=== PATIENT | female | born 1950 ===

== ENCOUNTER 2022-10-07 10:24 | Outpatient (AMB) | payer MEDICARE, SELFPAY ==
--- NOTE | 2022-10-07 11:52 | MHC.OFFWIV ---
Intake Vital Signs 10/07/22 11:53 Height 5 ft 1 in Weight 117 lb BMI 22.1 BP 130/100 H Blood Pressure Location Rt brachial Position Sitting Pulse 66 Pulse Source Pulse Oximeter Temp 97.8 F Temp Source Temporal Artery Scan Pulse Oximetry (%) 98 Oxygen Delivery Method Room Air Intake Visit Reasons: EP, Sinus Congestion([phone]) Intake Note: Patient here for sinus congestion that has been present for about 1 week. she has been experiencing Cough, mucus, face congestion. Patient Tobacco Use Status: Former Tobacco user Allergies barium sulfate Allergy (Unknown, Verified 10/07/22 12:54) delayed rash pain meds Adverse Reaction (Unknown, Uncoded 10/07/22 12:54) N/V Medication List - Last Reconciled 10/07/22 by Wilberto Luther MD No Known Home Meds Do you need a note to return to daycare/school/sports/work: No HPI EP, Sinus Congestion([phone]) HPI Details Patient presents for a sick visit. Reporting symptoms of sinus congestion, sore throat and difficulty swallowing. Low-grade fever. No family member is sick. No recent travel. Patient reports symptoms of malaise and fatigue. Patient also gives history of eczema. She has an outbreak on the scalp and would like a steroid ointment. Physical Exam Vital Signs: Last Vital Signs Temp 97.8 F 10/07/22 11:53 Pulse 66 10/07/22 11:53 BP 130/100 H 10/07/22 11:53 Pulse Ox 98 10/07/22 11:53 Oxygen Delivery Method Room Air 10/07/22 11:53 BMI result Body Mass Index 22.1 Const General: cooperative and healthy appearing Nutritional Appearance: well nourished Orientation/consciousness: patient oriented x3 Limitations: no limitations HEENT Head: Yes normal to inspection Eyes General: appearance normal, both eyes and all related structures Neck Neck: Yes normal visual inspection Chest Chest palpation & inspection: normal palpation of entire chest wall Resp Effort & Inspection: normal respiratory effort Skin Other: Erythematous rash with flaking skin in the occipital area. Neuro General: patient oriented x3 Assessment & Plan Assessment & Plan (1) Upper respiratory tract infection: Code(s): J06.9 - Acute upper respiratory infection, unspecified Plan: Antibiotics ordered. Increase fluid intake. Tylenol for aches and pains. If symptoms worsen, follow-up here for a recheck. (2) Eczema: Code(s): L30.9 - Dermatitis, unspecified Plan: Steroid cream has been ordered. Coding Level of Care Code Est Pt Level 4 (32618) Diagnoses Upper respiratory tract infection J06.9 Eczema L30.9
[2022-10-07 11:53] VITALS: BP 130/100; PULSE 66; TEMP 36.6; O2SAT 98; BMI 22.1
== END 2022-10-07 13:04 | disposition home or self-care (01) ==
PROVIDERS: PCP Internal Medicine; Visit Provider Internal Medicine
DX: J06.9 Acute upper respiratory infection, unspecified (principal); L30.9 Dermatitis, unspecified
CPT/HCPCS: 99214

== ENCOUNTER 2023-02-12 15:18 | Emergency (ER) | payer MEDICARE, SELFPAY ==
--- NOTE | ~2023-02-12 | XR_ITS ---
EXAMINATION: XR CHEST CLINICAL INFORMATION: SOB. COMPARISON: None available. TECHNIQUE: 2 views of the chest were obtained. FINDINGS: No significant abnormality is noted involving the heart, lungs, mediastinum, bony thorax or soft tissues. XR/XR chest 2V IMPRESSION: Unremarkable chest examination.
[2023-02-12 15:30] VITALS: BP 181/109; PULSE 84; O2SAT 98
--- NOTE | 2023-02-12 15:34 | ECG_ITS ---
Test Reason : SOB Blood Pressure : / mmHG Vent. Rate : 078 BPM Atrial Rate : 078 BPM P-R Int : 142 ms QRS Dur : 066 ms QT Int : 402 ms P-R-T Axes : 078 064 060 degrees QTc Int : 458 ms Normal sinus rhythm with sinus arrhythmia Possible Left atrial enlargement Nonspecific ST and T wave abnormality Abnormal ECG No previous ECGs available Referred By: Stephanie Sloan Electronically Signed By:SOFIA RAMOS
--- NOTE | 2023-02-12 15:45 | PC.NURSE ---
pt a&o x4, pleasant, calm, and cooperative. comes from home for increased sob since swetha. 20G IV placed to LAC by EMS. sating 95% on room air. call lindsey within reach. awaiting provider pickup. rr even/unlabored. no work of breathing noted.
[2023-02-12 15:59] VITALS: BP 141/75; PULSE 72; RESP 16; TEMP 36.9; O2SAT 94; BMI 22.8
[2023-02-12 16:35] LABS: MANUAL DIFF FLAG NO
--- NOTE | 2023-02-12 16:35 | PC.NURSE ---
pt reporting increased tightness in chest. Quintin RT aware and going to put in a [facility] protocol with Dr. Morris. pt sating 94% on room air. pt brother at bedside.
[2023-02-12 16:37] LABS: Basophils Percent Auto 0.5 % (0-2); Eosinophils Absolute Auto 0.1 X10*3/uL (0.0-0.4); Eosinophils Percent Auto 0.8 % (0-4); Hemoglobin 13.9 g/dl (12.0-16.0); Imm Gran Abs Auto 0.02 X10*3/uL (0.00-0.03); Imm Gran Pct Auto 0.3 % (0.0-0.4); Lymphocytes Absolute Auto 0.8 X10*3/uL (1.2-4.9); Lymphocytes Percent Auto 12.1 % (20-40); Mean Corpuscular HGB Conc 33.1 g/dl (31.0-35.0); Mean Corpuscular Hemoglobin 30.1 pg (27.0-33.0); Mean Corpuscular Volume 90.9 fL (80.0-98.0); Mean Platelet Volume 8.7 fL (9.4-12.3); Neutrophils Absolute Auto 4.7 x10*3/uL (2.0-8.3); Neutrophils Percent Auto 71.3 % (45-73); Platelet Count 217 X10*3/uL (160-400); Red Blood Count 4.62 X10*6/uL (4.20-5.50); Red Cell Distribution Width 12.9 % (11.0-16.0); White Blood Count 6.5 X10*3/uL (4.8-10.8)
[2023-02-12 16:43] LABS: INTERNATIONAL NORM RATIO 0.9 (0.9-1.1); Prothrombin Time 11.4 SEC (11.1-13.3)
[2023-02-12 16:45] LABS: Partial Thromboplastin Time 33.2 SEC (26.0-36.4)
[2023-02-12] MEDS: Albuterol Sulfate 90 MCG 8 GM INHALER 4 PUFF INHALE (16:48)
[2023-02-12 16:49] VITALS: PULSE 79; RESP 16; O2SAT 92
[2023-02-12 16:52] LABS: Alanine Aminotransferase 15 U/L (0-31); Albumin Level 4.1 g/dL (3.5-5.0); Alkaline Phosphatase 52 U/L (39-117); Anion Gap 11 (12-20); Aspartate Amino Transferase 22 U/L (5-31); Bilirubin Total 0.2 mg/dL (0.0-1.0); Blood Urea Nitrogen 12 mg/dL (9-16); Calcium 9.4 mg/dL (8.4-10.2); Carbon Dioxide 27 mmol/L (22-29); Chloride 105 mmol/L (96-108); Creatinine Clr Calc Pharmacy 44.5; Estimated Glomerular Filt Rate > 60; Glucose Random 102 mg/dL (60-115); Magnesium 2.1 mg/dL (1.6-2.6); Potassium 3.6 mmol/L (3.3-5.1); Sodium 139 mmol/L (135-145); Total Protein 6.7 g/dL (6.5-8.0)
[2023-02-12 17:01] LABS: Troponin-I High Sensitivity 5.5 ng/L (<3.5-17.0)
--- NOTE | 2023-02-12 17:02 | ED.SOB ---
HPI - SOB/Dyspnea General Chief Complaint: Dyspnea Stated Complaint: SOB X3 DAYS,DUONEB GIVEN PER EMS Time Seen by Provider: 02/12/23 16:11 Source: patient Mode of arrival: EMS Limitations: no limitations History of Present Illness HPI Narrative: Patient 72-year-old female who presents emergency department via EMS for evaluation of shortness of breath. She reports onset approximately 3 days ago. Symptoms were initially mild at first but progressively worsening. She reports last night she had a very difficult time sleeping. The shortness of breath has been notably worse today. Is experienced while at rest and worsens with exertion. She does report over the past month or so she has found herself causing to catch her breath a few times while walking up the stairs but did not think much of this. She is also experiencing a productive cough with clear phlegm. She is also experiencing cramping to her abdomen intermittently without nausea vomiting diarrhea constipation or genitourinary symptoms. She denies any associated dizziness, lightheadedness, neck pain, chest pain, nausea, vomiting, abdominal pain, numbness or tingling of the extremities, pedal edema, weakness. She denies any history of respiratory disease. EMS administered DuoNeb nebulizer which she felt did not improve her symptoms, she also received albuterol inhaler from ED bronch protocol prior to my initial examination and she does feel as though this helped her feeling of shortness of breath. She is noted to be 93% on room air while at rest. Prior smoking history. Denies any personal history of DVT/PE/malignancy, recent lower extremity swelling, redness, pain, recent surgery or prolonged immobilization. Related Data Previous Rx's Medication Instructions Recorded azithromycin 250 mg tablet See Rx Instructions PO .COMPLEX #6 10/07/22 tabs triamcinolone acetonide 0.025 % 1 appl topical DAILY #80 grams 10/07/22 topical ointment oseltamivir 75 mg capsule (Tamiflu) 75 mg PO BID 5 days #10 caps 02/12/23 Allergies Allergy/AdvReac Type Severity Reaction Status Date / Time barium sulfate Allergy Unknown delayed Verified 02/12/23 15:59 rash pain meds AdvReac Unknown N/V Uncoded 10/07/22 12:54 Review of Systems Review of Systems: Yes all other systems are reviewed and are negative PMFSH Past Medical History Attestation statement: The following information was validated with the patient. Source: old records reviewed Social History Social History Patient Tobacco Use Status: Former Tobacco user Physical Exam Vital Signs: Vital Signs: Last Vital Signs Temp 98.4 F 02/12/23 15:59 Pulse 79 02/12/23 16:49 Resp 16 02/12/23 16:49 BP 141/75 H 02/12/23 15:59 Pulse Ox 94 02/12/23 15:59 O2 Del Method Room Air 02/12/23 15:59 BMI result Body Mass Index 22.8 Appearance: Alert.?Oriented to person, place and time. No acute distress.?Normal affect. Eyes: Pupils equal, round and reactive to light.? ENT: Pharynx normal.?? Neck: Normal inspection.? Neck supple.?? CVS: Heart sounds normal. Normal heart rate and rhythm.? Pulses normal.?? Respiratory: No respiratory distress.? Lung sounds diminished bilaterally, left worse than right. Abdomen: Soft and non-tender. Normoactive bowel sounds. Skin: Skin warm and dry.? Normal skin color.? Extremities: No lower extremity edema.? No calf ttp? Neuro: Moves all extremities spontaneously. Sensation intact bilaterally. No focal neuro deficits. Ambulates with normal steady gait. Course Reevaluation(s) Reevaluation #1: CBC is without leukocytosis or anemia. CMP is unremarkable. High sensitive troponin is within normal range at 5.5, EKG without acute ischemic abnormality. Ambulatory O2 trial with saturation remaining 93% or greater. Influenza a positive, given duration of symptoms, reviewed Tamiflu, indications for use and possible side effects, patient has elected for treatment with Tamiflu. At this time feel that she is stable for discharge home, outpatient follow-up with primary care provider. Reviewed worrisome signs and symptoms that would warrant re-evaluation emergency department. All questions answered. Stable for discharge. Medications Administered Discontinued Medications Generic Name Dose Route Start Last Admin Trade Name Freq PRN Reason Stop Dose Admin Albuterol Sulfate 4 puff 02/12/23 16:46 02/12/23 16:48 Albuterol Sulfate 90 Mcg 8 Gm Inhaler INHALE 02/12/23 16:47 4 puff ONCE ONE Administration Medical Decision Making Medical Decision Making MDM Narrative: Patient is a 72-year-old female with no reported past medical history presents emergency department for evaluation of shortness of breath, dyspnea on exertion aggressively worsening over the past 3 days as per HPI. At the time examination she appears overall well, nontoxic, afebrile. She is without tachypnea or tachycardia. Her room air O2 saturations and be 93%. Patient is unaware of what her baseline is. She reports a history of smoking. Physical examination overall benign except for diminished lung sounds bilaterally. Abdominal examination is benign, no rigidity, guarding, rebound tenderness. Will obtain CBC to evaluate for leukocytosis/ anemia, CMP and lipase to evaluate for abnormal electrolytes /abnormal renal function/ abnormal hepatic/biliary function, EKG and troponin to evaluate for ischemia/ACS. Chest x-ray to evaluate for consolidation/ infiltrate/ mass/ pulmonary congestion and Urinalysis. Differential Diagnosis Differential Diagnoses: The differential diagnosis associated with the presentation includes (Viral illness, ACS, pneumonia, CHF. Wells negative, unlikely PE) Admission/Observation Consideration of admission/observation: Escalation of care including admission/observation considered (See narrative above and course narrative for further detail) Lab Data MDM Lab Attestation statement: I reviewed the patient's lab results. (See course narrative for further detail) 02/12/23 16:25 02/12/23 16:25 Labs: Lab Results 02/12/23 02/12/23 Range/Units 16:25 16:28 WBC 6.5 (4.8-10.8) X10*3/uL RBC 4.62 (4.20-5.50) X10*6/uL Hgb 13.9 (12.0-16.0) g/dl Hct 42.0 (37.0-47.0) % MCV 90.9 (80.0-98.0) fL MCH 30.1 (27.0-33.0) pg MCHC 33.1 (31.0-35.0) g/dl RDW 12.9 (11.0-16.0) % Plt Count 217 (160-400) X10*3/uL MPV 8.7 L (9.4-12.3) fL Immature Gran % (Auto) 0.3 (0.0-0.4) % Neut % (Auto) 71.3 (45-73) % Lymph % (Auto) 12.1 L (20-40) % [place] % (Auto) 15.0 H (2-11) % Eos % (Auto) 0.8 (0-4) % Baso % (Auto) 0.5 (0-2) % Lymph # (Auto) 0.8 L (1.2-4.9) X10*3/uL [place] # (Auto) 1.0 (0.1-1.2) X10*3/uL Eos # (Auto) 0.1 (0.0-0.4) X10*3/uL Baso # (Auto) 0.0 (0.0-0.2) X10*3/uL Abs Immat Gran (auto) 0.02 (0.00-0.03) X10*3/uL Absolute Neuts (auto) 4.7 (2.0-8.3) x10*3/uL Absolute Nucleated RBC 0.000 (0.0-0.012) X10*3/uL Nucleated RBC % (auto) 0.0 (0.0-0.2) /100WBC PT 11.4 (11.1-13.3) SEC INR 0.9 (0.9-1.1) APTT 33.2 (26.0-36.4) SEC Sodium 139 (135-145) mmol/L Potassium 3.6 (3.3-5.1) mmol/L Chloride 105 (96-108) mmol/L Carbon Dioxide 27 (22-29) mmol/L Anion Gap 11 L (12-20) BUN 12 (9-16) mg/dL Creatinine 0.86 (0.5-1.4) mg/dL Estim Creat Clear Calc 44.5 Estimated GFR > 60 Random Glucose 102 (60-115) mg/dL Calcium 9.4 (8.4-10.2) mg/dL Magnesium 2.1 (1.6-2.6) mg/dL Total Bilirubin 0.2 (0.0-1.0) mg/dL AST 22 (5-31) U/L ALT 15 (0-31) U/L Alkaline Phosphatase 52 (39-117) U/L Troponin I High Sens 5.5 (<3.5-17.0) ng/L Total Protein 6.7 (6.5-8.0) g/dL Albumin 4.1 (3.5-5.0) g/dL Lipase 98 H (8-78) U/L Influenza Type A (PCR) POSITIVE A (Negative) Influenza Type B (PCR) NEGATIVE (Negative) RSV RNA Qual (PCR) NEGATIVE (Negative) SARS-CoV-2 RNA (RT-PCR) NEGATIVE (Negative) Independent Interpretation I performed an independent interpretation of an: EKG and Plain X-Ray (Have personally interpreted chest x-ray and agree with radiologist impression.) Interpretation: Rate: 78 Rhythm:? Normal sinus rhythm Normal P waves.? Normal ESAU.?? Normal QRS complex.?? ST T wave :??No STEMI qTC:458 prior studies:? None available for review The study has been interpreted contemporaneously by me. Radiology Impression Discussion of test interpretation with radiology: I have reviewed the radiologist's reading. Radiologist Impression: XR/XR chest 2V IMPRESSION: Unremarkable chest examination. Independent Historian Clinical information obtained from an independent historian. History obtained from or confirmed by: EMS Prescription Management I considered prescription management with: Antiviral Discharge Plan Discharge Clinical Impression: Influenza A Patient Disposition: Home, Self-Care Instructions: Influenza (ED) Prescriptions: New oseltamivir [Tamiflu] 75 mg capsule 75 mg PO BID 5 Days Qty: 10 0RF No Action azithromycin 250 mg tablet See Rx Instructions PO .COMPLEX Qty: 6 0RF Rx Instructions: take 500 mg today (day 1), then 250 mg for 4 days (days 2-5) PO triamcinolone acetonide 0.025 % ointment 1 appl topical DAILY Qty: 80 0RF Referrals: Physician,Unknown J [Primary Care Provider] -
[2023-02-12 17:03] LABS: Lipase 98 U/L (8-78)
[2023-02-12 17:32] LABS: Influenza A PCR POSITIVE (Negative); Influenza B PCR NEGATIVE (Negative); Resp Syncy Virus RNA Qual PCR NEGATIVE (Negative); SARS COV2 PCR INHOUSE NEGATIVE (Negative)
--- NOTE | 2023-02-12 18:08 | PC.NURSE ---
ambulation trial with [employer] tech. pt sating 93% on room air with ambulation. pt back to bed sating 97% on room air.
[2023-02-12 18:26] VITALS: BP 167/83; PULSE 84; RESP 16; TEMP 36.9; O2SAT 95
== END 2023-02-12 18:37 | disposition home or self-care (01) ==
PROVIDERS: Nurse Practitioner Family; Physician Assistant Medical; Emergency Provider Emergency Medicine
DX: J10.1 Influenza due to other identified influenza virus with other respiratory manifestations (principal); Z20.822 Contact with and (suspected) exposure to COVID-19; Z20.828 Contact with and (suspected) exposure to other viral communicable diseases
CPT/HCPCS: 0241U; 36415; 71046; 80053; 83690; 83735; 84484; 85025; 85610; 85730; 93005; 94640; 99284; 99285

== ENCOUNTER → 2023-02-12 15:34 | Outpatient (BNV) | payer MEDICARE, SELFPAY | PROVIDERS: Emergency Provider Emergency Medicine; Visit Provider Internal Medicine | DX: R06.02 Shortness of breath (principal) | CPT/HCPCS: 93010 ==

== ENCOUNTER 2023-03-06 09:53 | Outpatient (AMB) | payer MEDICARE, SELFPAY ==
[2023-03-06 09:59] VITALS: BP 160/88; PULSE 55; O2SAT 99; BMI 22.7
--- NOTE | 2023-03-06 09:59 | A.OFFPC_ITS ---
Vital Signs 03/06/23 09:59 Height 5 ft 1 in Weight 120 lb 2 oz BMI 22.7 BP 160/88 H Blood Pressure Location Rt brachial Position Sitting Pulse 55 Pulse Source Pulse Oximeter Pulse Oximetry (%) 99 Oxygen Delivery Method Room Air Intake Visit Reasons: Annual PE Intake Note: Pt is here for her Annual PE Pt is looking for a referral to pulmonary Allergies barium sulfate Allergy (Unknown, Verified 03/06/23 10:03) delayed rash pain meds Adverse Reaction (Unknown, Uncoded 03/06/23 10:03) N/V Tobacco use date assessed: 03/06/23 Fall risk assessment: No Falls in past year Last assessed Fall Risk: 03/06/23 Dental Screening Dental Screen Date: 03/06/23 Did you have a dental visit in the last 12 months?: No Did you have a dental problem in the last 6 months where you did not have access to dental care?: No Was dental information given to patient?: No HPI HPI Comments History of Present Illness Details Patient is a 72-year-old female here to establish care and for follow up from a hospital discharge. The patient was admitted to the hospital for dyspnea on exertion 3 weeks prior to this appointment. Patient's workup revealed that she had influenza. She was discharged with Tamiflu and an albuterol inhaler. Her ambulating pulse oximetry was maintained above 93%. Patient denies shortness of Breath, chest pain, numbness, dizziness, at today's appointment. Patient states she has not had a fever since being discharged from the hospital. The patient reports she is expect a rating a lot of mucus, and notices that she gets a little out of breath after talking for several minutes. Patient has declined immunizations today. Patient is due for colonoscopy, has declined. She has agreed to try Cologuard. Patient has declined bone density scan, patient has declined mammogram. [facility] Family History Father Substance use disorder Brother Substance use disorder Paternal Uncle Substance use disorder Social History Housing: House Patient Tobacco Use Status: Former Tobacco user e-Cigarette/Vaping Use: Never Used Second Hand Smoke Exposure: Yes service: No Current occupational status: retired Cognitive needs: No Hearing needs: No Vision needs: No Questionnaire PHQ-9 Over the last 2 weeks, how often have you been bothered by any of the following problems? 1. Little interest or pleasure in doing things: not at all 2. Feeling down, depressed, or hopeless: not at all 3. Trouble falling or staying asleep, or sleeping too much: not at all 4. Feeling tired or having little energy: not at all 5. Poor appetite or overeating: not at all 6. Feeling bad about yourself - or that you are a failure or have let yourself or your family down: not at all 7. Trouble concentrating on things, such as reading the newspaper or watching television: not at all 8. Moving or speaking so slowly that other people could have noticed. Or the opposite - being so fidgety or restless that you have been moving around a lot more than usual: not at all 9. Thoughts that you would be better off or of hurting yourself in some way: not at all Total score: 0 Depression Screening Interpretation: Negative Depression Screening Done: Yes 43737 - PHQ-9 Billing: Yes Source: Developed by Drs. Danish Park, Juanita Ybarra, Jason Max and colleagues, with an educational marv from [employer] Thrive Questionnaire Date Thrive assessed: 03/06/23 I am a: Patient What is your living situation today?: I have a steady place to live Within the past 12 months, did the food you bought not last and you didn't have the money to get more?: Never true Within the past 12 months, did you worry whether your food would run out before you got money to buy more?: Never true Do you have trouble paying for medicines?: No Do you have trouble getting transportation to medical appointments?: No Do you have trouble paying your heating and electricity bill?: No Do you have trouble taking care of your child, family member or friend?: No Do you have trouble with day-to-day activities such as bathing, preparing meals, shopping, managing finances, etc.?: No Are you currently unemployed and looking for a job?: No Are you interested in more education?: No THRIVE Score: 0 AUDIT C Alcohol Use Questionnaire (AUDIT-C) 1. How often do you have a drink containing alcohol?: Monthly or less 2. How many drinks containing alcohol do you have on a typical day when you are drinking?: 1 or 2 3. How often do you have six or more drinks on one occasion?: Never Total Score: 1 MANDIE-7 AMB Questionnaire MANDIE-7 Date MANDIE - 7 assessed: 03/06/23 Feeling nervous, anxious, or on edge: 0 = Not at all Not being able to stop or control worryin = Not at all Worrying too much about different things: 0 = Not at all Trouble relaxin = Not at all Being so restless that it is hard to sit still: 0 = Not at all Becoming easily annoyed or irritable: 0 = Not at all Feeling afraid as if something awful might happen: 0 = Not at all Total MANDIE-7 score (0-4 normal; 5-9 mild; 10-14 moderate; 15-21 severe): 0 Source: Developed by Drs. Danish Park, Juanita Ybarra, Jason Max and colleagues, with an educational marv from [employer] MANDIE-7 Assessment Billing MANDIE-7 Assessment Tool: MANDIE-7 Assessment 60550 Review of Systems Const Details: Constitutional : No Weight loss, No Fever, No Chills, No Fatigue, No Malaise ENT/Mouth : No sore throat, No Rhinorrhea Eyes: No Eye Pain, No Swelling, No Redness Cardiovascular : No Chest Pain, No SOB, No Dyspnea on Exertion, No Orthopnea, No Edema, No Palpitations Respiratory : Admits Cough, Admits Sputum, No Wheezing Gastrointestinal : No Nausea, No Vomiting, No Diarrhea, No Constipation, No abdominal Pain, No Hematochezia, No Melena Genitourinary : No Dysuria, No Urinary Frequency, No Hematuria, Musculoskeletal : No joint pain, No Myalgias, No Joint Swelling Skin : No Skin Lesions, No rash Neuro : No Weakness, No Numbness, No Dizziness, No Headache Psych : No Anxiety/Panic, No Depression Heme/Lymph: No Bruising, No Bleeding,No Lymphadenopathy Endocrine : No Polyuria, No Polydipsia All other systems reviewed and are negative Physical exam (Primary Care) Vital Signs: Last Vital Signs Pulse 55 03/06/23 09:59 BP 160/88 H 03/06/23 09:59 Pulse Ox 99 03/06/23 09:59 Oxygen Delivery Method Room Air 03/06/23 09:59 Care Plan Goal for BP management: Patient's pulse on physical exam 64 beats per minute Next steps: Patient declined BP medication at this time. She has agreed to take measurements at home and get back to the office with results after 2 weeks. Patient has been educated on the danger of elevated blood pressure. BMI result Body Mass Index 22.7 Tobacco/Smoking Status: Tobacco use Status Tobacco use date assessed 03/06/23 03/06/23 10:09 Patient Tobacco Use Status Former Tobacco user 03/06/23 10:09 e-Cigarette/Vaping Use Never Used 03/06/23 10:09 PHQ-9: PHQ-9 Score PHQ-9: Total score 0 03/06/23 10:15 Depression Screening Interpretation: Negative Thrive Assessment: Date of Thrive Assessment Date Thrive assessed 03/06/23 03/06/23 10:15 Const Other: Appearance: Alert.? Oriented X3.? No acute distress.? ?ENT: Pharynx normal.? Neck: Normal inspection.? Neck supple.?Full ROM CVS: Normal heart rate and rhythm.? Pulses normal.?+ Systolic murmur. Respiratory: No respiratory distress.? Breath sounds diminished.? Skin: Skin warm and dry.? Normal skin color.? Normal skin turgor.? Extremities: No lower extremity edema.? No calf ttp. 5/5 strength to bilateral upper and lower extremities Neuro: Oriented X 3.? No motor deficit.? No sensory deficit. CN 2-12 intact Results Reviewed Results Reviewed: Will call patient with lab results. Assessment and Plan Assessment & Plan (1) Reactive airway disease: Comment: Patient states she has been getting relief with albuterol inhaler at home. Will refer to Pulmonary and order PFTs. Will refill patient albuterol nebulizer solution. Patient has been educated on signs of worsening symptoms and when to return to the office or when to present to the ED. patient states she understands Code(s): J45.909 - Unspecified asthma, uncomplicated Qualifiers: Asthma complication type: uncomplicated Asthma persistence: unspecified Asthma severity: unspecified severity Qualified Code(s): J45.909 - Unspecified asthma, uncomplicated (2) Hypertension: Comment: Patient is declining medication at this time. She states she wants to take measurements at home and get back to the office. Patient has been educated on signs of worsening symptoms and when to return to the office or when to present to the ED. Code(s): I10 - Essential (primary) hypertension Qualifiers: Hypertension type: primary hypertension Qualified Code(s): I10 - Essential (primary) hypertension (3) Systolic murmur: Comment: Patient had systolic murmur on physical exam, declined EKG. Will order echocardiogram. Code(s): R01.1 - Cardiac murmur, unspecified Plan Take your medications as prescribed. If you were prescribed antibiotics today, it is important that you take your medication to their entirety, do not skip any doses, do not finish them early. Follow-up with your primary care provider this week. Return to the emergency department with new or worsening symptoms. Such as fevers, chills, chest pain, shortness of breath, nausea, vomiting, dizziness, headache, vision changes, lethargy In case of emergency call 911 Orders: Orders Comprehensive Met. Panel Today Z91.89 - Other specified personal risk factors, not elsewhere classified Vitamin B6 Today Z13.21 - Encounter for screening for nutritional disorder Vitamin B12 Today Z13.21 - Encounter for screening for nutritional disorder Complete Blood Count Auto Diff Today Z13.0 - Encounter for screening for diseases of the blood and blood-forming organs and certain disorders involving the immune mechanism Lipid Panel Today E78.5 - Hyperlipidemia, unspecified Vitamin D 25-OH (D2 and D3) Today Z13.21 - Encounter for screening for nutritional disorder UA CC w/rflx Micro + Cult Today E86.0 - Dehydration TSH reflex Free T4 Today E03.9 - Hypothyroidism, unspecified CA echo transthoracic complete 03/06/23 R01.1 - Cardiac murmur, unspecified PFT pulmonary function test 03/06/23 J45.909 - Unspecified asthma, unc omplicated Referrals Cologuard Test Z12.11 - Encounter for screening for malignant neoplasm of colon, Z12.12 - Encounter for screening for malignant neoplasm of rectum Pulmonary Medicine Referral J45.909 - Unspecified asthma, uncomplicated Medications: New albuterol sulfate 2.5 mg (3 mL) inhalation Q4-6H PRN 75 mL 0RF shortness of breath or wheezing Review Patient declined Mammogram: 03/06/23 Declined Pap Smear: 03/06/23 Patient declined Colonoscopy: 03/06/23 Patient declined Pneumococcal Vaccine: 03/06/23 Coding Level of Care Code Est Pt Level 3 (62378) Diagnoses Reactive airway disease without complication, unspecified asthma severity, unspecified whether persistent J45.909 Asthma complication type: uncomplicated Asthma persistence: unspecified Asthma severity: unspecified severity Primary hypertension I10 Hypertension type: primary hypertension Systolic murmur R01.1 Additional Codes MANDIE-7 Assessment Billing - MANDIE-7 Assessment Tool: MANDIE-7 Assessment 16935 ([id number]) Time Spent (min) 45
== END 2023-03-06 11:56 | disposition home or self-care (01) ==
PROVIDERS: Visit Provider Nurse Practitioner Primary Care
DX: J45.909 Unspecified asthma, uncomplicated (principal); I10 Essential (primary) hypertension; R01.1 Cardiac murmur, unspecified
CPT/HCPCS: 99215

== ENCOUNTER 2023-03-11 08:54 | Outpatient (REF) | payer MEDICARE, SELFPAY ==
[2023-03-11 11:39] LABS: Appearance Urine Clear; Color Urine Yellow; Glucose Urine UA Negative (Negative); Leukocyte Esterase Urine Trace (Negative); Nitrite Urine Negative (Negative); PH 5.5 (5.0-9.0); Specific Gravity - Urine 1.025 (1.005-1.025); UMIC TRIGGER UACC YES; Urine Blood Negative (Negative); Urine Ketones Negative (Negative); Urine Protein Negative (Neg-Trace)
[2023-03-11 11:46] LABS: Bacteria Urine None Seen (None Seen); Hyaline Casts Urine 0-2 /LPF (0-2); RBC Urine 0-2 /HPF (0-2); WBC Urine 0-5 /HPF (0-5)
[2023-03-11 11:48] LABS: MANUAL DIFF FLAG NO
[2023-03-11 11:55] LABS: Basophils Percent Auto 0.5 % (0-2); Eosinophils Absolute Auto 0.2 X10*3/uL (0.0-0.4); Eosinophils Percent Auto 2.7 % (0-4); Hematocrit 41.5 % (37.0-47.0); Hemoglobin 13.3 g/dl (12.0-16.0); Imm Gran Abs Auto 0.02 X10*3/uL (0.00-0.03); Imm Gran Pct Auto 0.2 % (0.0-0.4); Lymphocytes Absolute Auto 2.6 X10*3/uL (1.2-4.9); Lymphocytes Percent Auto 31.7 % (20-40); Mean Corpuscular Hemoglobin 29.6 pg (27.0-33.0); Mean Corpuscular Volume 92.4 fL (80.0-98.0); Mean Platelet Volume 9.5 fL (9.4-12.3); Monocytes Absolute Auto 0.8 X10*3/uL (0.1-1.2); Monocytes Percent Auto 10.1 % (2-11); Neutrophils Absolute Auto 4.4 x10*3/uL (2.0-8.3); Neutrophils Percent Auto 54.8 % (45-73); Platelet Count 311 X10*3/uL (160-400); Red Blood Count 4.49 X10*6/uL (4.20-5.50); Red Cell Distribution Width 12.6 % (11.0-16.0); White Blood Count 8.1 X10*3/uL (4.8-10.8)
[2023-03-11 12:25] LABS: Alanine Aminotransferase 10 U/L (0-31); Albumin Level 3.9 g/dL (3.5-5.0); Alkaline Phosphatase 54 U/L (39-117); Anion Gap 8 (12-20); Aspartate Amino Transferase 15 U/L (5-31); Bilirubin Total 0.4 mg/dL (0.0-1.0); Blood Urea Nitrogen 13 mg/dL (9-16); Calcium 9.2 mg/dL (8.4-10.2); Carbon Dioxide 29 mmol/L (22-29); Chloride 107 mmol/L (96-108); Cholesterol 232 mg/dL (<200); Estimated Glomerular Filt Rate > 60; Glucose Random 85 mg/dL (60-115); HDL Cholesterol 51 mg/dL (>40); LDL Cholesterol Calculated 155 mg/dL (<100); Potassium 3.9 mmol/L (3.3-5.1); Sodium 140 mmol/L (135-145); Total Protein 6.6 g/dL (6.5-8.0); Triglycerides 134 mg/dL (<150)
[2023-03-11 12:35] LABS: Vitamin B12 276 pg/mL (200-900)
[2023-03-11 12:44] LABS: TSH reflex Free T4 2.74 uIU/mL (0.32-4.0)
[2023-03-15 14:38] LABS: Vitamin D 25-OH, D2 <4 ng/mL; Vitamin D 25-OH, D3 29 ng/mL; Vitamin D 25-OH, Total 29 ng/mL (30-100)
[2023-03-16 15:44] LABS: Vitamin B6 6.1 ng/mL (2.1-21.7)
== END 2023-03-11 08:55 | disposition home or self-care (01) ==
LOC: HO.HMGCLDS 08:54
PROVIDERS: PCP Nurse Practitioner Primary Care; Visit Provider Nurse Practitioner Primary Care
DX: Z13.21 Encounter for screening for nutritional disorder (principal); Z13.0 Encounter for screening for diseases of the blood and blood-forming organs and certain disorders involving the immune mechanism; E78.5 Hyperlipidemia, unspecified; E03.9 Hypothyroidism, unspecified; Z91.89 Other specified personal risk factors, not elsewhere classified
CPT/HCPCS: 36415; 80053; 80061; 81001; 82306; 82607; 84207; 84443; 85025

== ENCOUNTER 2023-03-29 09:11 | Outpatient (AMB) | payer MEDICARE, SELFPAY ==
[2023-03-29 09:51] VITALS: BP 140/72; PULSE 80; O2SAT 93; BMI 22.7
--- NOTE | 2023-03-29 09:51 | MHC.OFFWIV ---
Intake Vital Signs 03/29/23 09:51 Height 5 ft 1 in Weight 120 lb BMI 22.7 BP 140/72 H Blood Pressure Location Lt brachial Position Sitting Pulse 80 Pulse Source Pulse Oximeter Pulse Oximetry (%) 93 Oxygen Delivery Method Room Air Intake Visit Reasons: EST/cough and congestion(blue delgado) Intake Note: Pt is here today c/o cough and chest congestion x2days Patient Tobacco Use Status: Former Tobacco user Allergies barium sulfate Allergy (Unknown, Verified 03/29/23 10:00) delayed rash pain meds Adverse Reaction (Unknown, Uncoded 03/29/23 10:00) N/V HPI EST/cough and congestion(blue delgado) HPI Details Patient is a 72-year-old female with underlying diagnosis of reactive airway disease in the setting of long-term smoking and is in the process of a workup for COPD with pulmonology, who comes to the walk-in clinic complaining of cough and nasal congestion, along with increased chest congestion in the mornings for the last 2 days. She had requested albuterol inhaler refill a few days ago, but has been having trouble getting it filled. She states that she is able to use her albuterol nebulizer, and has been using it as she feels wheezy when supine at night. She states that she has trouble sleeping when extra pillows are added to improve her breathing at night. She states that she wakes up with increased cough and nasal and chest congestion, which improves after she clears it. She states she has had increased phlegm since getting sick a few months ago over the holiday season, and is getting a workup to rule out COPD. She has a history of long-term cigarette smoking and only quit recently. She has not short of breath, and she has no current chest discomfort. She denies fever or chills, nausea vomiting or diarrhea, weakness or dizziness, malaise or myalgias, anorexia, or other significant associated symptoms. PFSH Family History Father Substance use disorder Brother Substance use disorder Paternal Uncle Substance use disorder Social History Housing: House Patient Tobacco Use Status: Former Tobacco user e-Cigarette/Vaping Use: Never Used Second Hand Smoke Exposure: Yes service: No Current occupational status: retired Cognitive needs: No Hearing needs: No Vision needs: No Review of Systems Const All systems reviewed & are unremarkable except as noted in HPI and below Physical Exam Vital Signs: Last Vital Signs Pulse 80 03/29/23 09:51 BP 140/72 H 03/29/23 09:51 Pulse Ox 93 03/29/23 09:51 Oxygen Delivery Method Room Air 03/29/23 09:51 BMI result Body Mass Index 22.7 Const General: cooperative, healthy appearing, comfortable, no acute distress, alert, awake, Physically active and well groomed; No anxious, diaphoretic, ill appearing, intoxicated appearing, poor hygiene or tired appearing Nutritional Appearance: average body habitus Orientation/consciousness: patient oriented x3 Limitations: no limitations HEENT Head: Yes normal to inspection, Yes normocephalic and Yes atraumatic Ears: hearing grossly normal bilaterally, external ears normal, TM's normal bilaterally and EAC's normal General nose exam: Normal external nose present, nares abnormal, Abnormal mucous membranes and turbinates present and Nasal discharge present Face and sinus: Yes normal facial exam, Yes sinuses nontender and Yes face symmetric Mouth: Normal oral and palatal mucosa present, lip normal and tongue normal Throat: Yes abnormal tonsil (mildly erythematous bilaterally), No peritonsillar mass, Yes postnasal drainage, No uvular edema and No cobblestoning Eyes General: appearance normal, both eyes and all related structures Neck Neck: Yes normal visual inspection, Yes full ROM, Yes no lymphadenopathy, Yes trachea midline, Yes supple and No anterior neck swelling Chest Chest palpation & inspection: normal palpation of entire chest wall Resp Effort & Inspection: normal respiratory effort, able to speak in complete sentences, normal respiratory pattern, no audible wheezes, Actively coughing (Rare occasional), respiratory effort not decreased, no grunting, not labored, no nasal flaring, no pursed lip breathing, no respiratory distress, no retractions, no tripod positioning, no use of accessory muscles, No prolonged expiratory phase and symmetric chest movement Auscultation: clear to auscultation bilaterally, no crackles, no rales, no rhonchi, no wheezes, lung sounds not diminished and No rub present Cardio Rate: regular rate Skin Other: Good color, warm and dry Neuro General: patient oriented x3 Psych Appearance: grossly normal Mental Status: mental status grossly normal Speech and movement: Normal speech and movement present Affect: normal affect Attitude: cooperative Thought process: Normal thought process present Insight: Good insight present (Psych) Judgement: Good judgement present (Psych) Assessment & Plan Assessment & Plan (1) Upper respiratory tract infection: Code(s): J06.9 - Acute upper respiratory infection, unspecified Qualifiers: URI type: unspecified viral URI Qualified Code(s): J06.9 - Acute upper respiratory infection, unspecified Plan: This appears to be more of an upper respiratory infection, and she is pending rapid COVID test as well as flu COVID and RSV PCR testing today. It is quite possible that she has underlying COPD and that this might be getting aggravated with her apparent virus, so I will write her for a course of azithromycin. I also wrote her for a short course of steroids, however we discussed that she could wait a day or 2 to start, as other than complaint of wheezing upon being supine and a slightly decreased oxygen saturation which might be her baseline normal now, she does not have symptoms suggestive of work of breathing and her respiratory status is adequate. We discussed that she should only take oral steroids when they are indicated, as she might be a candidate for needing them in the future frequently. In the meantime, she has albuterol at home, for nebulizer use as needed. She knows to go to the emergency department with worrisome symptoms. 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 Orders: Orders [facility] Covid-19 Ag Today Z20.822 - Contact with and (suspected) exposure to COVID-19 SARS-CoV2/FLU/RSV Today R05.9 - Cough, unspecified Medications: New prednisone 40 mg (2 x 20 mg) PO DAILY 5 days 10 tabs 0RF azithromycin take 500 mg today (day 1), then 250 mg for 4 days (days 2-5) PO 6 tabs 0RF Coding Level of Care Code Est Pt Level 4 (21494) Diagnoses Viral upper respiratory tract infection J06.9 URI type: unspecified viral URI
== END 2023-03-29 12:57 | disposition home or self-care (01) ==
PROVIDERS: PCP Nurse Practitioner Primary Care; Visit Provider Physician Assistant Medical
DX: J06.9 Acute upper respiratory infection, unspecified (principal)
CPT/HCPCS: 99214

== ENCOUNTER 2023-03-29 10:29 | Outpatient (REF) | payer MEDICARE, SELFPAY ==
[2023-03-29 12:37] LABS: Influenza A PCR NEGATIVE (Negative); Influenza B PCR NEGATIVE (Negative); Resp Syncy Virus RNA Qual PCR NEGATIVE (Negative); SARS COV2 PCR INHOUSE NEGATIVE (Negative)
== END 2023-03-29 10:30 | disposition home or self-care (01) ==
LOC: HO.LAB 10:29
PROVIDERS: Visit Provider Physician Assistant Medical
DX: R05.9 Cough, unspecified (principal); Z20.822 Contact with and (suspected) exposure to COVID-19
CPT/HCPCS: 0241U

== ENCOUNTER → 2023-04-08 10:53 | Outpatient (REF) | payer MEDICARE, SELFPAY ==
--- NOTE | 2023-04-08 10:55 | CA_ITS ---
Transthoracic Echocardiogram Patient (Last, First, Middle): Hansa Mills J Gender: Female Date of : 1950 Age: 72 Procedure Date: 04/08/2023 Procedure Type: Transthoracic Echocardiogram Location: OP Height: 154. cm Weight: 54.43 kg BSA: 1.51 m2 Heart Rate: 64 bpm BP: 155 / 85 mmHg Credit Reporting Clerk: ESAU Referring MD: Crow DAVIES Forest Engineer: Tobias Flores MD Symptoms: R01.1 - Cardiac murmur, unspecified Study Quality: Adequate ECG Rhythm: Sinus Conclusions: - 1. Normal LV systolic function with LVEF of 60-65% with grade 1 diastolic dysfunction 2. Moderately calcified aortic valve with possible bicuspid physiology with moderate to severe aortic stenosis and mild aortic regurgitation 3. Mildly dilated ascending aorta at 4.3 cm 4. Normal RV systolic pressure 5. No gross pericardial effusion Findings Left Ventricle Normal left ventricular size, thickness, and systolic function. The visually estimated ejection fraction is between 60-65%. Spectral Doppler is indicative of an impaired relaxation filling pattern. E/E prime ratio is between 8 and 15 consistent with indeterminate filling pressures. Peak GLS is -18.5%, which is within normal range. Right Ventricle Normal right ventricular cavity size and systolic function. Atria Both atria are normal in size. There is no evidence of interatrial shunt. Aortic Valve There is moderate calcification of the aortic valve. There is moderate to severe aortic valve stenosis. The peak aortic gradient is 37 mmHg.The mean gradient is 23 mmHg. The aortic valve area is 0.98 cm2. There is mild aortic valve regurgitation. Dimensionless index of 0.29 which is suggestive of moderate aortic stenosis. underlying bicuspid aortic valve anatomy can not be entirely ruled out Mitral Valve Normal mitral valve structure and function. There is trace mitral valve regurgitation. There is no mitral valve stenosis. Pulmonic Valve The pulmonic valve is likely normal. Tricuspid Valve Normal tricuspid valve structure. There is trace tricuspid valve regurgitation. The right ventricular systolic pressure is normal. The right ventricular systolic pressure is 20 mmHg. Normal right atrial pressure. There is no evidence of pulmonary hypertension. Great Vessels The pulmonary artery was not well visualized. There is mild dilatation of the ascending aorta measuring 4.30 cm. Venous The inferior vena cava is normal in size and collapses greater than 50% with inspiration. Pericardium/Pleural There is no evidence of pericardial effusion. Prior Study Comparison No prior study available for comparison. Recommendations, Care & Conclusions Consider a WANDER if clinically appropriate. Measurements 2D Linear Measurements IVSd: 1.08 0.6-0.9/0.6-1.0 cm LVIDd: 4.24 3.9-5.3/4.2-5.9 cm LVIDd Index: 2.81 2.4-3.2/2.2-3.1 cm/m2 LVIDs: 2.26 2.0-3.6 cm LVPWd: 0.73 0.7-1.1 cm LA Diam: 2.70 2.7-3.8/3.0-4.0 cm LAIDs Index: 1.79 1.5-2.3 cm/m2 LV Mass: 150.91 67-162/88-224 g LV Mass Index: 99.94 43-95/49-115 g/m2 LVOT Diam: 2.00 3.0+(-)1.3 cm 2D Systolic Function EF 4C: 63.80 >55% EF 2C: 59.70 >55% EF BiP: 62.20 >55% Mitral Valve MV Pk E: 0.70 MV PK A: 0.99 MV Decel Time: 323.00 E/A: 0.70 E'Lateral: 7.29 E'Medial: 5.77 E/E' Med: 12.10 E/E' Lat: 9.60 PHT: 95.00 MVA PHT: 2.32 Decel [place]: 2.16 Aortic Valve AoV Pk Georges: 3.03 AoV Mn Georges: 2.28 AoV VTI: 0.69 AoV Pk Grad: 37.00 Aov Mn Grad: 23.00 ZEN Cont.VTI: 0.98 AI Pk Georges: 4.11 AI [place]: 1.81 LVOT LVOT Pk Georges: 0.88 LVOT Mn Georges: 0.65 LVOT VTI: 0.21 LVOT Pk Grad: 3.00 LVOT Mn Grad: 2.00 LVOT Diam: 2.00 LVOT Area: 3.14 Diastolic Function MV Pk E: 0.70 MV Pk A: 0.99 E/A: 0.70 E'Medial: 5.77 E/E' Med: 12.10 E' Laterial: 7.29 E/E' Lat: 9.60 Right Ventricle TAPSE (mm): 21.90 TVS' Georges: 10.10 Tricuspid Valve TR Pk Georges: 2.08 TR Pk Grad: 17.00 RA Press: 3.00 RVSP: 20.00 Great Vessels Aorta Sinus of Valsalva: 3.60 2.0-3.5 cm Ao Asc: 4.30 2.1-3.4 cm Ao Arch: 2.60 Pulmonary Valve PV Pk Georges: 1.06 Peak PV Grad: 4.00 Updated in Other Vendor System with Status of Final Tobias Flores MD electronically signed on 04/08/2023 4:00:27 PM with status of Final
== END ==
LOC: HO.CARD 10:53
PROVIDERS: PCP Nurse Practitioner Primary Care; Visit Provider Nurse Practitioner Primary Care
DX: R01.1 Cardiac murmur, unspecified (principal)
CPT/HCPCS: 93306; 93356

== ENCOUNTER → 2023-04-08 10:55 | Outpatient (BNV) | payer MEDICARE, SELFPAY | PROVIDERS: PCP Nurse Practitioner Primary Care; Visit Provider Internal Medicine Cardiovascular Disease | DX: I35.2 Nonrheumatic aortic (valve) stenosis with insufficiency (principal) | CPT/HCPCS: 93306 ==

== ENCOUNTER 2023-04-09 14:30 | Outpatient (AMB) | payer MEDICARE, SELFPAY ==
[2023-04-09 14:29] VITALS: BP 118/80; PULSE 74; BMI 22.5
--- NOTE | 2023-04-09 14:29 | A.OFFVIS_ITS ---
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 Intake Note: New patient dx abnormal echo c/o some sob Exhibit Cleaner Required: No Allergies barium sulfate Allergy (Unknown, Verified 03/29/23 10:00) delayed rash pain meds Adverse Reaction (Unknown, Uncoded 03/29/23 10:00) N/V Medication List - Last Reconciled 04/09/23 by Tobias Flores MD albuterol sulfate 2.5 mg (3 mL) inhalation Q4-6H PRN atorvastatin 10 mg PO DAILY losartan 50 mg PO DAILY Ventolin HFA 90 mcg/actuation (albuterol sulfate) 1 inh inhalation QID PRN NS HPI HPI Comments History of Present Illness Details Thank you for referring Hansa in cardiology consultation today for new finding of aortic stenosis. She has a pleasant 72-year-old female who recently was seen in the emergency room in January with worsening shortness of breath was subsequently diagnose with influenza. She was also thought to have COPD exacerbation. She was treated for the same her continues to have exertional shortness of breath. Subsequently in the clinic was noted to have systolic murmur underwent echocardiogram which was suggestive of possible bicuspid aortic valve with at least moderate to moderately severe aortic stenosis. She was therefore referred here for cardiology evaluation. She says exertional shortness of breath has been present for some time but recently has got worse although she thinks this is related to underlying COPD. She continues to have some wheezing. She denies any fever or chills or cough productive of phlegm. She denies any exertional chest pain or lightheadedness. She has never had a syncopal episode. She gets strong family history of cardiovascular disease, her father dying in his 50s suddenly while hospitalized for psychiatric condition. One of her brothers in [place] had bleeding in the chest cavity and subsequently was diagnosed with aortic stenosis and underwent valve surgery. He is still currently alive. One of her other brothers while awaiting cardiology evaluation suddenly and subsequently post monitoring report suggested aortic stenosis. Although she has not very clear on this. She comes here for further evaluation. She was recently started on atorvastatin therapy and her blood pressure was changed to losartan due to reaction to another antihypertensive therapy. Blood pressure is well optimized. [facility] Medical History Aortic stenosis Family History Father Substance use disorder Brother Substance use disorder CAD (coronary artery disease) Paternal Uncle Substance use disorder Social History Housing: House Patient Tobacco Use Status: Former Tobacco user e-Cigarette/Vaping Use: Never Used Second Hand Smoke Exposure: Yes service: No Current occupational status: retired Cognitive needs: No Hearing needs: No Vision needs: No Review of Systems Const Denies chills, Denies daytime sleepiness, Denies fatigue, Denies fever(s), Denies frequent falls, Denies poor appetite, Denies snoring, Denies stops breathing during sleep, Denies weakness, Denies weight gain and Denies weight loss Eyes Denies loss of vision ENT Denies dizziness and Denies hearing loss Card Denies chest pain, Denies claudication, Denies leg edema, Denies lightheadedness, Denies palpitations, Denies dyspnea, Denies dyspnea on exertion and Denies orthopnea Resp Denies cough, Denies excessive phlegm production, Denies dyspnea, Denies dyspnea on exertion, Denies snoring and Denies wheezing GI Denies abdominal pain, Denies hematochezia, Denies change in bowel habits, Denies nausea and Denies vomiting Denies urinary frequency and Denies dysuria Musc Denies arthralgias, Denies muscle weakness, Denies numbness and Denies other (frequent falls) Skin/Breast Denies nail changes and Denies rash Neuro Denies Abnormal speech present, Denies dizziness, Denies frequent falls, Denies loss of vision, Denies memory loss, Denies numbness and Denies weakness Psych Denies depression and Denies memory loss Endo Denies fatigue and Denies palpitations Manjit/Lymph Reports easy bruising and Reports other (anemia) Aller/Immun Denies wheezing Physical Exam Vital Signs: Last Vital Signs Pulse 74 04/09/23 14:29 BP 118/80 04/09/23 14:29 BMI result Body Mass Index 22.5 Const General: cooperative, comfortable, no acute distress, alert, awake and Physically active Nutritional Appearance: thin Orientation/consciousness: patient oriented x3 Limitations: no limitations HEENT Head: Yes normocephalic and Yes atraumatic Neck Neck: Yes trachea midline, Yes supple and Yes no JVD Carotids: normal carotid upstroke Resp Effort & Inspection: normal respiratory effort Auscultation: clear to auscultation bilaterally and diminished lung sounds Cardio Jugular venous distension: no JVD Palpation: normal PMI Rate: regular rate Rhythm: regular rhythm Heart sounds: S1 normal heart sound present, S2 normal heart sound present, no click, no gallops and Murmur heart sound present systolic mid, decrescendo and crescendo GI Auscultation: normal bowel sounds Skin General skin exam: no rashes or lesions noted Neuro General: patient oriented x3 and no focal motor deficits Speech: No Abnormal speech present Extrem General: Yes no clubbing, cyanosis or edema Psych Appearance: grossly normal Office Procedures EKG Details: EKG shows normal sinus rhythm with sinus arrhythmia otherwise normal EKG [id number], Complete Assessment & Plan Assessment & Plan (1) SOB (shortness of breath) on exertion: Code(s): R06.02 - Shortness of breath Plan: Exertional shortness of breath in this elderly woman is most likely related to her underlying pulmonary parenchymal disease and COPD. Although given her risk factors obstructive coronary artery disease needs to be ruled out. Will suggest exercise myocardial perfusion imaging to assess for the same. Further treatment based on the findings of the stress test. She understands and is agreeable. (2) Aortic stenosis: Code(s): I35.0 - Nonrheumatic aortic (valve) stenosis Plan: Aortic stenosis which clinically appears to be moderate. By echocardiogram moderate to moderately severe. Most likely etiology appears to be bicuspid aortic valve with strong family history of aortic stenosis. Advise her to screen her kids for the same. 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 Continue aggressive risk factor modification. Currently on statin therapy started recently at 10 mg. Advise follow-up lipid panel in 4-6 weeks time. Blood pressure is well optimized on losartan therapy. Importance of aggressive risk factor modification was discussed. Will obtain a WANDER to assess for bicuspid aortic valve. She also has mild thoracic aortic aneurysm which is known in patients bicuspid aortic valve. Will need to be monitor closely. Follow-up echocardiogram 6 months time. Pathophysiology of aortic stenosis and gradual progressive nature of aortic stenosis was discussed with her. She understands and agrees. Will follow up in the clinic in 6 months time, sooner p.r.n.. Thank you for allowing me to partake in her care Orders: Orders CA lexiscan stress w david 04/09/23 R06.02 - Shortness of breath Lipid Panel 04/09/23 I25.10 - Atherosclerotic heart disease of nez perce coronary artery without angina pectoris, R06.02 - Shortness of breath Coding Level of Care Code New Pt Level 4 (89991) Diagnoses SOB (shortness of breath) on exertion R06.02 Aortic stenosis I35.0 CPT Codes EKG - CPT: 88744-[id number], Complete ([id number])
== END 2023-04-09 15:04 | disposition home or self-care (01) ==
PROVIDERS: PCP Nurse Practitioner Primary Care; Visit Provider Internal Medicine Cardiovascular Disease
DX: R06.02 Shortness of breath (principal); I35.0 Nonrheumatic aortic (valve) stenosis
CPT/HCPCS: 93010; 99204

== ENCOUNTER → 2023-04-09 14:30 | Outpatient (BNVA) | payer MEDICARE, SELFPAY | PROVIDERS: PCP Nurse Practitioner Primary Care; Visit Provider Internal Medicine Cardiovascular Disease | DX: R06.02 Shortness of breath (principal); I35.0 Nonrheumatic aortic (valve) stenosis | CPT/HCPCS: 93005; 99202 ==

== ENCOUNTER 2023-04-22 | Outpatient (REF) | payer MEDICARE, SELFPAY ==
[2023-04-23 12:27] LABS: Influenza A PCR NEGATIVE (Negative); Influenza B PCR NEGATIVE (Negative); Resp Syncy Virus RNA Qual PCR NEGATIVE (Negative); SARS COV2 PCR INHOUSE NEGATIVE (Negative)
== END 2023-04-22 00:01 | disposition home or self-care (01) ==
LOC: HO.HMGCLNP
PROVIDERS: Visit Provider Nurse Practitioner Primary Care
DX: Z11.52 Encounter for screening for COVID-19 (principal); Z20.822 Contact with and (suspected) exposure to COVID-19; J06.9 Acute upper respiratory infection, unspecified
CPT/HCPCS: 0241U

== ENCOUNTER 2023-04-22 15:40 | Outpatient (AMB) | payer MEDICARE, SELFPAY ==
[2023-04-22 15:44] VITALS: BP 110/56; PULSE 106; TEMP 36.7; O2SAT 96; BMI 22.5
--- NOTE | 2023-04-22 15:44 | MHC.OFFWIV ---
Intake Vital Signs 04/22/23 15:44 04/22/23 16:19 Height 5 ft 1 in Weight 119 lb BMI 22.5 BP 110/56 L Blood Pressure Location Rt brachial Position Sitting Pulse 106 H 94 Pulse Source Pulse Oximeter Palpation Temp 98.1 F Temp Source Oral Pulse Oximetry (%) 96 Oxygen Delivery Method Room Air Intake Visit Reasons: EP eye infection not going away lobby Intake Note: Pt is here today for sinus infection, pt states she doesn't feel any better. Patient Tobacco Use Status: Former Tobacco user Allergies barium sulfate Allergy (Unknown, Verified 04/22/23 15:44) delayed rash pain meds Adverse Reaction (Unknown, Uncoded 03/29/23 10:00) N/V Do you need a note to return to daycare/school/sports/work: No HPI HPI Comments History of Present Illness Details Patient is a 72-year-old female in for a sick visit. She has a past medical history significant for COPD, aortic stenosis, hyperlipidemia, hypertension. She is currently taking albuterol inhaler and nebulizer as her only treatments for COPD. Has upcoming appointment with Pulmonary. Patient recently saw cardiology for aortic stenosis, has upcoming exercise test. Patient states that she was in the walk-in clinic 3 weeks prior for symptoms of cough, chest congestion, sore throat, headache. She was given azithromycin and prednisone. The patient returns today with similar symptoms. Denies shortness of breath, chest pain, dizziness, numbness, nausea, vomiting, diarrhea. [facility] Medical History Aortic stenosis Family History Father Substance use disorder Brother Substance use disorder CAD (coronary artery disease) Paternal Uncle Substance use disorder Social History Housing: House Patient Tobacco Use Status: Former Tobacco user e-Cigarette/Vaping Use: Never Used Second Hand Smoke Exposure: Yes service: No Current occupational status: retired Cognitive needs: No Hearing needs: No Vision needs: No Review of Systems Const Details: Constitutional : No Weight loss, No Fever, No Chills, No Fatigue, No Malaise ENT/Mouth : Admits sore throat, No Rhinorrhea Eyes: No Eye Pain, No Swelling, No Redness Cardiovascular : No Chest Pain, No SOB, Admits some Dyspnea on Exertion, No Orthopnea, No Edema, No Palpitations Respiratory : Admits Cough, Admits Sputum, No Wheezing Gastrointestinal : No Nausea, No Vomiting, No Diarrhea, No Constipation, No abdominal Pain, No Hematochezia, No Melena Genitourinary : No Dysuria, No Urinary Frequency, No Hematuria, Musculoskeletal : No joint pain, No Myalgias, No Joint Swelling Skin : No Skin Lesions, No rash Neuro : No Weakness, No Numbness, No Dizziness, No Headache Psych : No Anxiety/Panic, No Depression Heme/Lymph: No Bruising, No Bleeding,No Lymphadenopathy Endocrine : No Polyuria, No Polydipsia All other systems reviewed and are negative Physical Exam Vital Signs: Last Vital Signs Temp 98.1 F 04/22/23 15:44 Pulse 106 H 04/22/23 15:44 BP 110/56 L 04/22/23 15:44 Pulse Ox 96 04/22/23 15:44 Oxygen Delivery Method Room Air 04/22/23 15:44 BMI result Body Mass Index 22.5 Const Other: Appearance: Alert.? Oriented X3.? No acute distress.? Head: Normocephalic, atraumatic, Eyes: Pupils equal, round and reactive to light.? ENT: Pharynx cobblestoned. TM intact and pearly schneider. Neck: Normal inspection.? Neck supple.? CVS: + systolic murmur. Normal rate and rhythm. Respiratory: No respiratory distress.? Breathe sounds diminished bilaterally. ? Skin: Skin warm and dry.? Normal skin color.? Normal skin turgor.? Neuro: Oriented X 3.? No motor deficit.? No sensory deficit. CN 2-12 intact Assessment & Plan Assessment & Plan (1) Upper respiratory tract infection: Comment: Will obtain upper respiratory swab. Will give patient Augmentin, prednisone, and Symbicort to be taken as directed. Patient does not have maintenance inhaler, she has been instructed how to use the inhaler properly. Patient also instructed to keep albuterol inhaler with her at all times. Code(s): J06.9 - Acute upper respiratory infection, unspecified Qualifiers: URI type: unspecified viral URI Qualified Code(s): J06.9 - Acute upper respiratory infection, unspecified Plan: Take your medications as prescribed. If you were prescribed antibiotics today, it is important that you take your medication to their entirety, do not skip any doses, do not finish them early. Follow-up with your primary care provider this week. Return to the emergency department with new or worsening symptoms. Such as fevers, chills, chest pain, shortness of breath, nausea, vomiting, dizziness, headache, vision changes, lethargy In case of emergency call 911 Plan Follow-up with PCP Orders: Orders SARS-CoV2/FLU/RSV Today J06.9 - Acute upper respiratory infection, unspecified Medications: New amoxicillin-pot clavulanate 875-125 mg 1 tab PO Q12H 14 tabs 0RF prednisone 20 mg PO BID 10 tabs 0RF budesonide-formoterol 160-4.5 mcg/actuation (Symbicort) 2 puffs inhalation Q12H 10.2 grams 0RF Coding Level of Care Code Est Pt Level 3 (83994) Diagnoses Viral upper respiratory tract infection J06.9 URI type: unspecified viral URI Time Spent (min) 30
[2023-04-22 16:19] VITALS: PULSE 94
== END 2023-04-22 17:10 | disposition home or self-care (01) ==
PROVIDERS: PCP Nurse Practitioner Primary Care; Visit Provider Nurse Practitioner Primary Care
DX: J06.9 Acute upper respiratory infection, unspecified (principal)
CPT/HCPCS: 99213

== ENCOUNTER 2023-04-28 10:18 | Outpatient (AMB) | payer MEDICARE, SELFPAY ==
--- NOTE | 2023-04-27 19:46 | A.OFFVIS_ITS ---
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: No Infant Babysitter: Infant Babysitter offered & declined Accompanied by: Self / Same As Patient Allergies barium sulfate Allergy (Unknown, Verified 04/28/23 10:28) delayed rash pain meds Adverse Reaction (Unknown, Uncoded 04/28/23 10:28) N/V Medication List - Last Reconciled 04/28/23 by Mahsa Avila LPN albuterol sulfate 2.5 mg (3 mL) inhalation Q4-6H PRN amoxicillin-pot clavulanate 875-125 mg 1 tab PO Q12H aspirin (Ecotrin Low Strength) 81 mg PO DAILY atorvastatin 10 mg PO DAILY budesonide-formoterol 160-4.5 mcg/actuation (Symbicort) 2 puffs inhalation Q12H losartan 50 mg PO DAILY Ventolin HFA 90 mcg/actuation (albuterol sulfate) 1 inh inhalation QID PRN NS HPI Unspecified asthma HPI Details Hansa is a pleasant 72-year-old female, former smoker with approximately 40pyh, recently quit in January, with underlying COPD, HTN and moderate aortic stenosis under the care of cardiology. In January she was evaluated at [facility] for dyspnea on exertion, diagnosed with influenza and discharged with Tamiflu and an albuterol inhaler. She was then evaluated twice for bronchitic symptoms,2/10 treated with azithromycin and prednisone then 3/5 treated with augmentin, prednisone and started on symbicort. She reports minimal use of albuterol since starting symbicort and uses saline with nebulizer PRN. She also uses a flutter valve with good effect. She continues to report dyspnea with moderate exertion, intermittent wheezing and productive cough with mostly clear sputum, which has improved since augmentin. She denies occupational exposures. She reports first degree relative with asthma, otherwise no pertinent family history. She denies prior history of asthma. Of note, patient is under the care of cardiology and was supposed to have upcoming stress test but has declined. [facility] Medical History Aortic stenosis Family History Father Substance use disorder Brother Substance use disorder CAD (coronary artery disease) Paternal Uncle Substance use disorder Social History (Updated 04/28/23 @ 10:30 by Mahsa Avila LPN) Housing: House Patient Tobacco Use Status: Former Tobacco user Tobacco use type: Cigarette Cigarette Packs Per Day: 1 Years Smoked: 50 Smoked in Last 30 Days: No e-Cigarette/Vaping Use: Never Used Second Hand Smoke Exposure: Yes service: No Current occupational status: retired Cognitive needs: No Hearing needs: No Vision needs: No Review of Systems Const Denies chills, Denies excessive sweating, Denies fever(s), Denies headache(s) and Denies night sweats Eyes Denies dry eyes, Denies irritation and Denies itchy eyes ENT Reports Normal hearing present, Denies headache(s), Denies nasal congestion, Denies nasal discharge, Denies post nasal drip and Denies sore throat Card Denies chest pain, Denies chest pain at rest, Denies chest pain with activity, Denies claudication, Denies leg edema, Denies orthopnea and Denies paroxysmal nocturnal dyspnea Resp Denies excessive phlegm production, Denies pain on inspiration, Denies pain with cough and Denies stridor Musc Denies myalgias Neuro Reports Normal hearing present and Denies headache(s) Endo Denies excessive sweating Manjit/Lymph Denies lymphadenopathy Aller/Immun Denies itchy eyes and Denies seasonal rhinorrhea Physical Exam Vital Signs: Last Vital Signs Pulse 70 04/28/23 10:24 BP 124/68 04/28/23 10:24 Pulse Ox 96 04/28/23 10:24 Oxygen Delivery Method Room Air 04/28/23 10:24 BMI result Body Mass Index 23.1 Const General: cooperative, healthy appearing, comfortable, no acute distress, well developed and alert Orientation/consciousness: patient oriented x3 Limitations: no limitations HEENT Head: Yes normal to inspection, Yes normocephalic and Yes atraumatic Ears: hearing grossly normal bilaterally and external ears normal Eyes General: appearance normal, both eyes and all related structures Eyelids: Yes eyelids normal Sclerae: sclerae normal EOM: EOMs intact bilaterally Neck Neck: Yes normal visual inspection and Yes no lymphadenopathy Lymphatic: no lymphadenopathy noted Chest Chest palpation & inspection: normal inspection of the chest Resp Other: diminished lung sounds and faint expiratory wheezes throughout, improved with duoneb Effort & Inspection: normal respiratory effort, able to speak in complete se ntences, no audible wheezes, no stridor, not tachypneic, no tripod positioning and no use of accessory muscles Cardio Jugular venous distension: no JVD Rate: regular rate Rhythm: regular rhythm Skin Other: warm, dry General skin exam: no rashes or lesions noted Neuro General: patient oriented x3 Cranial nerves: Yes Normal hearing present Cognition (Neuro): normal cognition Gait exam (Neuro): Normal gait present Extrem General: Yes normal to inspection, Yes capillary refill normal, Yes no clubbing, cyanosis or edema and Yes no pedal edema Psych Appearance: grossly normal and well kempt Speech and movement: Normal speech and movement present and Clear speech present Affect: normal affect Attitude: cooperative Thought process: Normal thought process present Thought content: Normal thought content present Insight: Good insight present (Psych) Judgement: Good judgement present (Psych) Office Procedures Nebulizer Treatment Nebulizer Treatment [id number]/MDI RX initial, or Nebulizer Subsequent Treatment Office Meds ipratropium 0.5 mg-albuterol 3 mg (2.5 mg base)/3 mL nebulization soln Performing Provider: Jennifer Wright NP Performing Location: [facility] Administered by: Mahsa Avila LPN on 04/28/23 10:58 Dose Route Admin Location Dispensed Lot Number Expiration Date [facility] Service Engineer 3 mL inhalation 3 mL [id number] 08/16/24 8714-4510-80 [employer] Results Reviewed Results Reviewed: [address] [address] XRay Report Signed Patient: Hansa Mills MR#: [id number] : 1950 Acct:[id number] Age/Sex: 72 / F ADM Date: 02/12/23 Loc: .ED Attending Dr: Ordering Physician: Stephanie Sloan Date of Service: 02/12/23 Procedure(s): XR chest 2V Accession Number(s): [id number] cc: Stephanie Sloan; Physician,Unknown ~ EXAMINATION: XR CHEST CLINICAL INFORMATION: SOB. COMPARISON: None available. TECHNIQUE: 2 views of the chest were obtained. FINDINGS: No significant abnormality is noted involving the heart, lungs, mediastinum, bony thorax or soft tissues. XR/XR chest 2V IMPRESSION: Unremarkable chest examination. Dictated By: Mariusz Callejas MD Signed By: <Electronically signed by Mariusz Callejas MD in OV> 02/12/23 1746 DD/ 1706 TD/TT: Farm Equipment Technician: MICHAEL Assessment & Plan Assessment & Plan (1) COPD (chronic obstructive pulmonary disease): Code(s): J44.9 - Chronic obstructive pulmonary disease, unspecified (2) Dyspnea: Code(s): R06.00 - Dyspnea, unspecified (3) Personal history of tobacco use: Code(s): Z87.891 - Personal history of nicotine dependence Plan Hansa's symptoms are likely related to underlying COPD, of unclear severity. Will send for PFT to evaluate. Patient with improving bronchitic symptoms since being treated with augmentin, prednisone and starting symbicort by PCP. Advised to continue using symbicort and albuterol PRN. Reviewed importance of good oral hygiene. Duoneb given in office as patient with diminished lung sounds and faint expiratory wheezes, minimally improved after nebulizer. Advised to use nebulizer PRN and will send in a longer prednisone taper. Will also send for chest CT to assess for any parenchymal conditions contributing to dyspnea. All qusetions were answered and patient is in agreement of plan. Will follow up to review results and response to inhaler. Orders: Orders AMB Nebulizer Treatment Today J44.9 - Chronic obstructive pulmonary disease, unspecified PFT pulmonary function test Today J44.9 - Chronic obstructive pulmonary disease, unspecified CT chest wo IV con Today J44.9 - Chronic obstructive pulmonary disease, unspecified, R06.00 - Dyspnea, unspecified, Z87.891 - Personal history of nicotine dependence Medications: New prednisone see taper instructions; 40 mg Daily x3 days, 30 mg daily x3 days, 20 mg daily x3 days, 10 mg daily x3 days 10 mg PO DIRECTED 30 tabs 0RF Coding Level of Care Code New Pt Level 4 (04100) Diagnoses COPD (chronic obstructive pulmonary disease) J44.9 Dyspnea R06.00 Personal history of tobacco use Z87.891 CPT Codes Nebulizer Treatment - Nebulizer Treatment, initial or subsequent: 74585- Nebulizer/MDI RX initial, or Nebulizer Subsequent Treatment ([id number])
[2023-04-28 10:24] VITALS: BP 124/68; PULSE 70; O2SAT 96; BMI 23.1
== END 2023-04-28 11:14 | disposition home or self-care (01) ==
PROVIDERS: PCP Nurse Practitioner Primary Care; Visit Provider Nurse Practitioner Family
DX: J44.9 Chronic obstructive pulmonary disease, unspecified (principal); R06.00 Dyspnea, unspecified; Z87.891 Personal history of nicotine dependence
CPT/HCPCS: 99204

== ENCOUNTER → 2023-04-28 10:18 | Outpatient (BNVA) | payer MEDICARE, SELFPAY | PROVIDERS: PCP Nurse Practitioner Primary Care; Visit Provider Nurse Practitioner Family | DX: J44.9 Chronic obstructive pulmonary disease, unspecified (principal); R06.00 Dyspnea, unspecified; Z87.891 Personal history of nicotine dependence | CPT/HCPCS: 94640; 99202 ==

== ENCOUNTER 2023-05-14 12:41 | Outpatient (REF) | payer MEDICARE, SELFPAY ==
[2023-05-14 09:32] VITALS: PULSE 67; RESP 16; O2SAT 98
--- NOTE | 2023-05-14 14:32 | PFT_ITS ---
Flows: FEV1: 59 % of predicted at 1.14 L FVC: 113 % of predicted at 2.79 L FEV1/FVC: 41 % Bronchodilator response: Absent Volumes: Total lung capacity: 102 % of predicted at 4.53 L Residual volume: 101 % of predicted at 1.82 L Slow vital capacity: 104 % of predicted at 2.71 L Expiratory reserve volume: 171 % of predicted at 1.04 L Diffusion capacity: Moderately decreased Impression: Moderate obstructive ventilatory defect with no bronchodilator response. Decreased diffusion capacity suggests emphysema. MTDD
== END 2023-05-14 12:42 | disposition home or self-care (01) ==
LOC: HO.RESP 12:41
PROVIDERS: PCP Nurse Practitioner Primary Care; Visit Provider Nurse Practitioner Family
DX: J44.9 Chronic obstructive pulmonary disease, unspecified (principal)
CPT/HCPCS: 94010; 94640; 94727; 94729

== ENCOUNTER → 2023-05-14 14:32 | Outpatient (BNV) | payer MEDICARE, SELFPAY | PROVIDERS: PCP Nurse Practitioner Primary Care; Visit Provider Internal Medicine Pulmonary Disease | DX: J44.9 Chronic obstructive pulmonary disease, unspecified (principal) | CPT/HCPCS: 94060; 94727; 94729 ==

== ENCOUNTER 2023-05-26 10:49 | Outpatient (AMB) | payer MEDICARE, SELFPAY ==
--- NOTE | 2023-05-26 09:21 | MHC.OFFVIS ---
Intake Vital Signs 05/26/23 10:53 Height 5 ft 1 in Weight 124 lb 8.979 oz BMI 23.5 BP 128/72 Blood Pressure Location Lt brachial Position Sitting Pulse 68 Pulse Source Pulse Oximeter Pulse Oximetry (%) 97 Oxygen Delivery Method Room Air Intake Visit Reasons: Asthma/PFT Follow Up Medical Service Technician Required: No Assistant Field Hockey Coach: Assistant Field Hockey Coach offered & declined Accompanied by: Self / Same As Patient Allergies barium sulfate Allergy (Unknown, Verified 05/26/23 10:56) delayed rash pain meds Adverse Reaction (Unknown, Uncoded 05/26/23 10:56) N/V Medication List - Last Reconciled 05/26/23 by Mahsa Avila LPN albuterol sulfate 2.5 mg (3 mL) inhalation Q4-6H PRN aspirin (Ecotrin Low Strength) 81 mg PO DAILY atorvastatin 10 mg PO DAILY budesonide-formoterol 160-4.5 mcg/actuation (Symbicort) 2 puffs inhalation Q12H losartan 50 mg PO DAILY prednisone 10 mg PO DIRECTED Ventolin HFA 90 mcg/actuation (albuterol sulfate) 1 inh inhalation QID PRN NS HPI Asthma/PFT Follow Up HPI Details Hansa is a pleasant 72-year-old female, former smoker with approximately 40pyh, recently quit in January, with underlying COPD, HTN and moderate aortic stenosis under the care of cardiology. At the last visit, she had reported improvements in bronchitic symptoms after being treated with Augmentin by PCP. On exam, patient had persistent wheezing and was given a long course of prednisone. She had a PFT performed and is awaiting chest CT scheduled in June. She reports feeling back to baseline after prednisone, however feels suboptimally controlled on symbicort and albuterol MDI/neb. Today she presents to review PFT results. [facility] Medical History Aortic stenosis Family History Father Substance use disorder Brother Substance use disorder CAD (coronary artery disease) Paternal Uncle Substance use disorder Social History (Updated 05/26/23 @ 10:57 by Mahsa Avila LPN) Housing: House Patient Tobacco Use Status: Former Tobacco user Tobacco use type: Cigarette Cigarette Packs Per Day: 1 Years Smoked: 50 e-Cigarette/Vaping Use: Never Used Second Hand Smoke Exposure: Yes service: No Current occupational status: retired Cognitive needs: No Hearing needs: No Vision needs: No Review of Systems Const Denies chills, Denies excessive sweating, Denies fever(s), Denies headache(s) and Denies night sweats Eyes Denies dry eyes, Denies irritation and Denies itchy eyes ENT Reports Normal hearing present, Denies headache(s), Denies nasal congestion, Denies nasal discharge, Denies post nasal drip and Denies sore throat Card Denies chest pain, Denies chest pain at rest, Denies chest pain with activity, Denies claudication, Denies leg edema, Denies orthopnea and Denies paroxysmal nocturnal dyspnea Resp Denies chest congestion, Denies excessive phlegm production, Denies pain on inspiration, Denies pain with cough, Denies stridor and Denies wheezing Musc Denies myalgias Neuro Reports Normal hearing present and Denies headache(s) Endo Denies excessive sweating Manjit/Lymph Denies lymphadenopathy Aller/Immun Denies itchy eyes, Denies seasonal rhinorrhea and Denies wheezing Physical Exam Vital Signs: Last Vital Signs Pulse 68 05/26/23 10:53 BP 128/72 05/26/23 10:53 Pulse Ox 97 05/26/23 10:53 Oxygen Delivery Method Room Air 05/26/23 10:53 BMI result Body Mass Index 23.5 Const General: cooperative, healthy appearing, comfortable, no acute distress, well developed and alert Orientation/consciousness: patient oriented x3 Limitations: no limitations HEENT Head: Yes normal to inspection, Yes normocephalic and Yes atraumatic Ears: hearing grossly normal bilaterally and external ears normal Eyes General: appearance normal, both eyes and all related structures Eyelids: Yes eyelids normal Sclerae: sclerae normal EOM: EOMs intact bilaterally Neck Neck: Yes normal visual inspection and Yes no lymphadenopathy Lymphatic: no lymphadenopathy noted Chest Chest palpation & inspection: normal inspection of the chest Resp Other: diminished lung sounds throughout Effort & Inspection: normal respiratory effort, able to speak in complete sentences, no audible wheezes, no stridor, not tachypneic, no tripod positioning and no use of accessory muscles Cardio Jugular venous distension: no JVD Rate: regular rate Rhythm: regular rhythm Skin Other: warm, dry General skin exam: no rashes or lesions noted Neuro General: patient oriented x3 Cranial nerves: Yes Normal hearing present Cognition (Neuro): normal cognition Gait exam (Neuro): Normal gait present Extrem General: Yes normal to inspection, Yes capillary refill normal, Yes no clubbing, cyanosis or edema and Yes no pedal edema Psych Appearance: grossly normal and well kempt Speech and movement: Normal speech and movement present and Clear speech present Affect: normal affect Attitude: cooperative Thought process: Normal thought process present Thought content: Normal thought content present Insight: Good insight present (Psych) Judgement: Good judgement present (Psych) Assessment & Plan Assessment & Plan (1) COPD (chronic obstructive pulmonary disease): Code(s): J44.9 - Chronic obstructive pulmonary disease, unspecified (2) Dyspnea: Code(s): R06.00 - Dyspnea, unspecified (3) Personal history of tobacco use: Code(s): Z87.899 - Personal history of nicotine dependence Plan Reviewed PFT which revealed moderate obstructive ventilatory defect with no bronchodilator response. Decreased diffusion capacity suggests emphysema. She has an upcoming chest CT to evaluate degree of emphysema. Patient continues with suboptimal control with symbicort and albuterol MDI/neb, will switch to Trelegy. All questions were answered and patient is in agreement of plan. Will follow up to review results of chest CT and response to inhaler. Medications: New ltrxndnvjrj-mnoykqgrc-pdjslfuk 200-62.5-25 mcg (Trelegy Ellipta) 1 inh inhalation DAILY 60 ea 6RF Coding Level of Care Code Est Pt Level 4 (36044) Diagnoses COPD (chronic obstructive pulmonary disease) J44.9 Dyspnea R06.00 Personal history of tobacco use Z87.795
[2023-05-26 10:53] VITALS: BP 128/72; PULSE 68; O2SAT 97; BMI 23.5
== END 2023-05-26 11:26 | disposition home or self-care (01) ==
PROVIDERS: PCP Nurse Practitioner Primary Care; Visit Provider Nurse Practitioner Family
DX: J44.9 Chronic obstructive pulmonary disease, unspecified (principal); R06.00 Dyspnea, unspecified; Z87.891 Personal history of nicotine dependence
CPT/HCPCS: 99214

== ENCOUNTER → 2023-05-26 10:49 | Outpatient (BNVA) | payer MEDICARE, SELFPAY | PROVIDERS: PCP Nurse Practitioner Primary Care; Visit Provider Nurse Practitioner Family | DX: J44.9 Chronic obstructive pulmonary disease, unspecified (principal); R06.00 Dyspnea, unspecified; Z87.891 Personal history of nicotine dependence | CPT/HCPCS: 99212 ==

== ENCOUNTER 2023-08-01 12:50 | Outpatient (REF) | payer MEDICARE, SELFPAY ==
--- NOTE | ~2023-08-01 | CT_ITS ---
EXAMINATION: CT CHEST WITHOUT CONTRAST CLINICAL INFORMATION: COPD. COMPARISON: Chest radiographs dated 02/12/2023. TECHNIQUE: Multidetector volumetric CT imaging of the chest was done. Axial MIP volume rendering provided. Sagittal and coronal reformatted images were obtained. This CT examination was performed using dose optimization techniques as appropriate, variously including the following: *Automated exposure control *Adjustment of mA and/or kV according to patient size (this includes techniques or standardized protocols for targeted exams where dose is matched to indication/reason for exam; i.e. extremities or head) *Use of iterative reconstruction technique DLP: 188 mGy-cm FINDINGS: PLACE CHANGE ROOF BOLTER: The lungs are symmetrically well-expanded and grossly clear. LUNGS: Within the anterior segment of the left upper lobe (6:30 and 33), there are 2 adjacent 4 mm noncalcified nodules. There are a few further bilateral scattered 1-2 mm nodules, best appreciated on the MIP sequence. There are diffuse centrilobular emphysematous changes. There is no mass, infiltrate or groundglass opacity. There is very mild small airway thickening. A posterior right base endobronchial density is seen, likely inspissated mucous (6:120). The central airways appear patent. MEDIASTINUM: The thyroid is unremarkable. There is an ectatic ascending thoracic aorta, measuring 4.3 x 4.4 cm (5:24). There are atherosclerotic calcifications of the great vessel origins and thoracic aorta. No sizable mediastinal or hilar lymphadenopathy is seen. CORONARY ARTERY CALCIFICATION: None visualized on this study. PLEURA: There is no pleural effusion. No pleural mass or thickening. AXILLA: No lymphadenopathy. UPPER ABDOMEN: There are multiple punctate pancreatic calcifications, consistent with chronic pancreatitis. The adrenal glands are unremarkable. OSSEOUS STRUCTURES: There is multi-level thoracic spondylosis, with degenerative disc disease most pronounced extending from T6-T7 through T11-T12, with vacuum disc phenomenon. No acute or aggressive osseous finding is noted. CT/CT chest wo IV con IMPRESSION: 1. There are multiple lung nodules, the largest noncalcified nodules within the left upper lobe measuring 4 mm each. According to the UPDATED 2017 Fleischner Society recommendations, the advised follow-up imaging for solid nodules < 6 mm is: LOW RISK PATIENT: No routine follow-up. HIGH RISK PATIENT: Optional CT at 12 months. 3. No mass, infiltrate or groundglass opacity is seen. 3. There are diffuse centrilobular emphysematous changes. 4. There is very mild small airway thickening, likely infectious or inflammatory in etiology. 5. There is ectasia of the ascending thoracic aorta, as detailed. Continued imaging follow-up may be indicated. 6. There are multi-level degenerative changes of the spine. No acute or aggressive osseous finding is seen. Fleischner guidelines were followed.
--- NOTE | ~2023-08-01 | CT_ITS ---
EXAMINATION: CT SINUS WITHOUT CONTRAST CLINICAL INFORMATION: Nasal cavity polyp, deviated nasal septum COMPARISON: None available. TECHNIQUE: Multiple 2.0 mm axial images of the paranasal sinuses were obtained without IV contrast enhancement. Bone window and soft tissue window images were reconstructed. Multiple 2.0 mm coronal and sagittal images of the paranasal sinuses were reconstructed from the axial image data. This CT examination was performed using dose optimization techniques as appropriate, variously including the following: *Automated exposure control *Adjustment of mA and/or kV according to patient size (this includes techniques or standardized protocols for targeted exams where dose is matched to indication/reason for exam; i.e. extremities or head) *Use of iterative reconstruction technique DLP: 86 mGy-cm FINDINGS: Sphenoid sinuses: Bilateral sphenoid sinuses are clear with intact bony septations. Ethmoid sinuses: Bilateral ethmoid sinuses are clear with intact bony septations. Maxillary sinuses: Bilateral maxillary sinuses are clear with intact bony ribeiro. Bilateral osteomeatal complexes are patent. The right Dinh's air cell is present. There is no abnormal expansion of the ethmoidal bullae, no joya bullosa or paradoxical curvature of the middle turbinates seen. Nasal septum is midline. Frontal sinuses: Bilateral frontal sinuses are clear with intact bony septations. Bilateral frontonasal recesses are patent. CT/CT sinus wo IV con IMPRESSION: 1. Normal CT scan of the paranasal sinuses. 2. Patent bilateral osteomeatal complexes.
== END 2023-08-01 12:51 | disposition home or self-care (01) ==
LOC: HO.CT 12:50
PROVIDERS: Absent Provider Otolaryngology; PCP Nurse Practitioner Primary Care; Visit Provider Nurse Practitioner Family
DX: J44.9 Chronic obstructive pulmonary disease, unspecified (principal); R06.00 Dyspnea, unspecified; Z87.891 Personal history of nicotine dependence; J33.0 Polyp of nasal cavity; J34.2 Deviated nasal septum
CPT/HCPCS: 70486; 71250

== ENCOUNTER 2023-08-11 13:24 | Outpatient (AMB) | payer MEDICARE, SELFPAY ==
--- NOTE | 2023-08-10 20:27 | A.OFFVIS_ITS ---
Vital Signs 08/11/23 13:29 Height 5 ft 1 in Weight 126 lb 12.253 oz BMI 23.9 BP 140/80 H Blood Pressure Location Rt brachial Position Sitting Pulse 73 Pulse Source Pulse Oximeter Pulse Oximetry (%) 96 Oxygen Delivery Method Room Air Intake Visit Reasons: copd Allergies barium sulfate Allergy (Unknown, Verified 08/11/23 13:32) delayed rash pain meds Adverse Reaction (Unknown, Uncoded 08/11/23 13:32) N/V HPI HPI copd: Details: Hansa is a pleasant 72-year-old female, former smoker with approximately 40pyh, recently quit in January, with underlying COPD, HTN and moderate aortic stenosis under the care of cardiology. At the last visit, Hansa reported suboptimal control with Symbicort and switched to Trelegy. She reports overall improvement in symptoms, however only mild and continues to use albuterol daily. She does admit to having difficulties using device and has been better about technique. We reviewed in office today. Today she presents to review chest CT. [facility] Medical History Aortic stenosis Family History Father Substance use disorder Brother Substance use disorder CAD (coronary artery disease) Paternal Uncle Substance use disorder Social History Housing: House Patient Tobacco Use Status: Former Tobacco user Tobacco use type: Cigarette Cigarette Packs Per Day: 1 Years Smoked: 50 e-Cigarette/Vaping Use: Never Used Second Hand Smoke Exposure: Yes service: No Current occupational status: retired Cognitive needs: No Hearing needs: No Vision needs: No Review of Systems Const Denies chills, Denies excessive sweating, Denies fever(s), Denies headache(s) and Denies night sweats Eyes Denies dry eyes, Denies irritation and Denies itchy eyes ENT Reports Normal hearing present, Denies headache(s), Denies nasal congestion, Denies nasal discharge, Denies post nasal drip and Denies sore throat Card Denies chest pain, Denies chest pain at rest, Denies chest pain with activity, Denies claudication, Denies leg edema, Denies orthopnea and Denies paroxysmal nocturnal dyspnea Resp Denies chest congestion, Denies excessive phlegm production, Denies pain on inspiration, Denies pain with cough, Denies stridor and Denies wheezing Musc Denies myalgias Neuro Reports Normal hearing present and Denies headache(s) Endo Denies excessive sweating Manjit/Lymph Denies lymphadenopathy Aller/Immun Denies itchy eyes, Denies seasonal rhinorrhea and Denies wheezing Physical Exam Vital Signs: Last Vital Signs Pulse 73 08/11/23 13:29 BP 140/80 H 08/11/23 13:29 Pulse Ox 96 08/11/23 13:29 Oxygen Delivery Method Room Air 08/11/23 13:29 BMI result Body Mass Index 23.9 Const General: cooperative, healthy appearing, comfortable, no acute distress, well developed and alert Orientation/consciousness: patient oriented x3 Limitations: no limitations HEENT Head: Yes normal to inspection, Yes normocephalic and Yes atraumatic Ears: hearing grossly normal bilaterally and external ears normal Eyes General: appearance normal, both eyes and all related structures Eyelids: Yes eyelids normal Sclerae: sclerae normal EOM: EOMs intact bilaterally Neck Neck: Yes normal visual inspection and Yes no lymphadenopathy Lymphatic: no lymphadenopathy noted Chest Chest palpation & inspection: normal inspection of the chest Resp Other: diminished lung sounds throughout Effort & Inspection: normal respiratory effort, able to speak in complete sentences, no audible wheezes, no stridor, not tachypneic, no tripod positioning and no use of accessory muscles Cardio Jugular venous distension: no JVD Rate: regular rate Rhythm: regular rhythm Skin Other: warm, dry General skin exam: no rashes or lesions noted Neuro General: patient oriented x3 Cranial nerves: Yes Normal hearing present Cognition (Neuro): normal cognition Gait exam (Neuro): Normal gait present Extrem General: Yes normal to inspection, Yes capillary refill normal, Yes no clubbing, cyanosis or edema and Yes no pedal edema Psych Appearance: grossly normal and well kempt Speech and movement: Normal speech and movement present and Clear speech present Affect: normal affect Attitude: cooperative Thought process: Normal thought process present Thought content: Normal thought content present Insight: Good insight present (Psych) Judgement: Good judgement present (Psych) Assessment & Plan Assessment & Plan (1) COPD (chronic obstructive pulmonary disease): Code(s): J44.9 - Chronic obstructive pulmonary disease, unspecified Category: Medical (2) Dyspnea: Code(s): R06.00 - Dyspnea, unspecified Category: Medical (3) Personal history of tobacco use: Code(s): Z87.890 - Personal history of nicotine dependence Category: Social Hx Plan Patient presents to review response to Trelegy and review chest CT results. She reports moderate improvements since switching to Trelegy but continue to use albuterol MDI. Will send for duoneb QD to trial. Patient had recent chest CT performed, however official read not available. Will call patient with results when able. All questions were answered and patient is in agreement of plan. Will follow up in three months or sooner if needed. Medications: New ipratropium-albuterol 0.5 mg-3 mg(2.5 mg base)/3 mL 3 mL inhalation Q6H PRN 180 mL 0RF wheezing Discontinued albuterol sulfate Discontinued Reason: Patient Completed Course 2.5 mg (3 mL) inhalation Q4-6H PRN 180 mL 1RF shortness of breath or wheezing budesonide-formoterol 160-4.5 mcg/actuation (Symbicort) Discontinued Reason: Patient Completed Course 2 puffs inhalation Q12H 10.2 grams 6RF Coding Level of Care Code Est Pt Level 3 (79985) Diagnoses COPD (chronic obstructive pulmonary disease) J44.9 Dyspnea R06.00 Personal history of tobacco use Z87.896
[2023-08-11 13:29] VITALS: BP 140/80; PULSE 73; O2SAT 96; BMI 23.9
== END 2023-08-11 13:57 | disposition home or self-care (01) ==
PROVIDERS: PCP Nurse Practitioner Primary Care; Visit Provider Nurse Practitioner Family
DX: J44.9 Chronic obstructive pulmonary disease, unspecified (principal); R06.00 Dyspnea, unspecified; Z87.891 Personal history of nicotine dependence
CPT/HCPCS: 99213

== ENCOUNTER → 2023-08-11 13:24 | Outpatient (BNVA) | payer MEDICARE, SELFPAY | PROVIDERS: PCP Nurse Practitioner Primary Care; Visit Provider Nurse Practitioner Family | DX: J44.9 Chronic obstructive pulmonary disease, unspecified (principal); R06.00 Dyspnea, unspecified; Z87.891 Personal history of nicotine dependence | CPT/HCPCS: 99212 ==

== ENCOUNTER → 2023-10-10 12:52 | Outpatient (REF) | payer MEDICARE, SELFPAY ==
--- NOTE | 2023-10-10 12:54 | CA_ITS ---
Transthoracic Echocardiogram Patient (Last, First, Middle): Hansa Mills J Gender: Female Date of : 1950 Age: 72 Procedure Date: 10/10/2023 Procedure Type: Transthoracic Echocardiogram Location: OP Height: 154.94 cm Weight: 54.43 kg BSA: 1.52 m2 Heart Rate: bpm BP: 130 / 82 mmHg Edger Saw Operator: TO Referring MD: Tobias Flores MD Symptoms: I35.0 - Nonrheumatic aortic (valve) stenosis Study Quality: Fair Conclusions: - Normal left ventricular cavity size. The left ventricular systolic function is hyperdynamic. The visually estimated ejection fraction is >70%. There is no evidence of regional wall motion abnormalities. Diastolic function is normal for age. - Normal right ventricular cavity size and systolic function. - There is a bicuspid aortic valve. There is severe calcification of the aortic valve. There is moderate to severe aortic valve stenosis. The peak aortic velocity is 3.39 m/s. The mean gradient is 29 mmHg. The aortic valve area is 0.79 cm2. Findings Left Ventricle Normal left ventricular cavity size. The left ventricular systolic function is hyperdynamic. The visually estimated ejection fraction is >70%. There is no evidence of regional wall motion abnormalities. Diastolic function is normal for age. Right Ventricle Normal right ventricular cavity size and systolic function. Atria The left atrium is normal in size. There is lipomatous hypertrophy of the interatrial septum. The right atrium is normal in size. Aortic Valve There is a bicuspid aortic valve. There is severe calcification of the aortic valve. There is moderate to severe aortic valve stenosis. The peak aortic velocity is 3.39 m/s. The mean gradient is 29 mmHg. The aortic valve area is 0.79 cm2. There is trace (trivial) aortic valve regurgitation. Mitral Valve The mitral valve appears normal. There is no mitral valve regurgitation. There is no mitral valve stenosis. Pulmonic Valve The pulmonic valve is normal. There is no pulmonic valve regurgitation. Tricuspid Valve Normal tricuspid valve structure. There is trace tricuspid valve regurgitation. Normal right atrial pressure. There is no evidence of pulmonary hypertension. Great Vessels There is mild dilatation of the ascending aorta measuring 4.20 cm. The visualized portions of the pulmonary artery and branches are normal. Venous The inferior vena cava is normal in size and collapses greater than 50% with inspiration. Pericardium/Pleural There is no evidence of pericardial effusion. Prior Study Comparison Changes noted compared to prior study dated: 04/08/2023. mod to severe . Measurements 2D Linear Measurements IVSd: 1.19 0.6-0.9/0.6-1.0 cm LVIDd: 3.56 3.9-5.3/4.2-5.9 cm LVIDd Index: 2.34 2.4-3.2/2.2-3.1 cm/m2 LVIDs: 2.18 2.0-3.6 cm LVPWd: 0.88 0.7-1.1 cm LA Diam: 2.50 2.7-3.8/3.0-4.0 cm LAIDs Index: 1.64 1.5-2.3 cm/m2 LV Mass: 138.77 67-162/88-224 g LV Mass Index: 91.29 43-95/49-115 g/m2 LVOT Diam: 2.00 3.0+(-)1.3 cm 2D Systolic Function EF 4C: 64.30 >55% EF 2C: 55.00 >55% EF BiP: 61.10 >55% Mitral Valve MV Pk E: 0.55 MV PK A: 0.83 MV Decel Time: 256.00 E/A: 0.70 E'Lateral: 7.07 E'Medial: 5.66 E/E' Med: 9.70 E/E' Lat: 7.80 PHT: 75.00 MVA PHT: 2.93 Decel [place]: 2.15 Aortic Valve AoV Pk Georges: 3.39 AoV Mn Georges: 2.56 AoV VTI: 0.82 AoV Pk Grad: 46.00 Aov Mn Grad: 29.00 ZEN Cont.VTI: 0.79 AI Pk Georges: 4.23 AI [place]: 2.04 LVOT LVOT Pk Georges: 0.96 LVOT Mn Georges: 0.69 LVOT VTI: 0.21 LVOT Pk Grad: 4.00 LVOT Mn Grad: 2.00 LVOT Diam: 2.00 LVOT Area: 3.14 Diastolic Function MV Pk E: 0.55 MV Pk A: 0.83 E/A: 0.70 E'Medial: 5.66 E/E' Med: 9.70 E' Laterial: 7.07 E/E' Lat: 7.80 Right Ventricle TAPSE (mm): 23.80 TVS' Georges: 11.60 Tricuspid Valve TR Pk Georges: 2.23 TR Pk Grad: 20.00 RA Press: 3.00 RVSP: 23.00 Great Vessels Aorta Sinus of Valsalva: 3.68 2.0-3.5 cm Ao Asc: 4.20 2.1-3.4 cm Updated in Other Vendor System with Status of Final Irwin Card MD electronically signed on 10/13/2023 5:15:10 PM with status of Final
== END ==
LOC: HO.CARD 12:52
PROVIDERS: Visit Provider Internal Medicine Cardiovascular Disease
DX: I35.0 Nonrheumatic aortic (valve) stenosis (principal); R06.02 Shortness of breath; R01.1 Cardiac murmur, unspecified
CPT/HCPCS: 93306

== ENCOUNTER → 2023-10-10 12:54 | Outpatient (BNV) | payer MEDICARE, SELFPAY | PROVIDERS: Visit Provider Internal Medicine Cardiovascular Disease | DX: Q23.0 Congenital stenosis of aortic valve (principal); I42.2 Other hypertrophic cardiomyopathy | CPT/HCPCS: 93303; 93320 ==

== ENCOUNTER 2023-11-13 15:14 | Outpatient (AMB) | payer MEDICARE, SELFPAY ==
--- NOTE | 2023-11-13 15:17 | MHC.OFFVIS ---
Vital Signs 11/13/23 15:18 Height 5 ft 1 in Weight 125 lb 10.616 oz BMI 23.7 BP 110/76 Blood Pressure Location Lt brachial Position Sitting Pulse 75 Intake Visit Reasons: 6 mth f/up s/p; echo Intake Note: 6 month follow-up after echo feeling good Order Administrator Required: No Allergies barium sulfate Allergy (Unknown, Verified 08/11/23 13:32) delayed rash pain meds Adverse Reaction (Unknown, Uncoded 08/11/23 13:32) N/V Medication List - Last Reconciled 11/13/23 by Tobias Flores MD aspirin (Ecotrin Low Strength) 81 mg PO DAILY atorvastatin 10 mg PO DAILY budesonide-formoterol 160-4.5 mcg/actuation (Symbicort) 2 puffs inhalation Q12H ipratropium-albuterol 0.5 mg-3 mg(2.5 mg base)/3 mL 3 mL inhalation Q6H PRN losartan 50 mg PO DAILY prednisone 10 mg PO DIRECTED Ventolin HFA 90 mcg/actuation (albuterol sulfate) 1 inh inhalation QID PRN NS HPI Comments Details: Hansa comes for follow-up. Continues to be functional and active. She continues to exertional shortness of breath when she is climbing a steep hill but this is been going on for awhile related to her COPD. She denies any progressive worsening shortness of breath or any exertional chest pressure. No lightheadedness, syncope. Recent echocardiogram shows bicuspid aortic valve with moderately severe aortic stenosis with mean gradient of 29 mm Hg with a valve area of 0.79 cm2. LV systolic function is preserved. [facility] Medical History Aortic stenosis Family History Father Substance use disorder Brother Substance use disorder CAD (coronary artery disease) Paternal Uncle Substance use disorder Social History Housing: House Patient Tobacco Use Status: Former Tobacco user Tobacco use type: Cigarette Cigarette Packs Per Day: 1 Years Smoked: 50 e-Cigarette/Vaping Use: Never Used Second Hand Smoke Exposure: Yes service: No Current occupational status: retired Cognitive needs: No Hearing needs: No Vision needs: No Review of Systems Const Denies chills, Denies fatigue, Denies fever(s), Denies frequent falls, Denies weakness, Denies weight gain and Denies weight loss ENT Denies dizziness Card Denies chest pain, Denies leg edema, Denies lightheadedness, Denies palpitations, Denies dyspnea, Denies dyspnea on exertion, Denies orthopnea and Denies other (loss of consciousness) Resp Denies cough, Denies dyspnea and Denies dyspnea on exertion GI Denies hematochezia and Denies change in stool character Musc Denies abnormal gait, Denies muscle weakness, Denies numbness, Denies radiating pain into limb and Denies tingling Neuro Denies Abnormal speech present, Denies abnormal gait, Denies dizziness, Denies frequent falls, Denies numbness, Denies tingling and Denies weakness Endo Denies fatigue and Denies palpitations Physical Exam Vital Signs: Last Vital Signs Pulse 75 11/13/23 15:18 BP 110/76 11/13/23 15:18 BMI result Body Mass Index 23.7 Const General: cooperative, comfortable, no acute distress, alert, awake and Physically active Nutritional Appearance: thin Orientation/consciousness: patient oriented x3 Limitations: no limitations HEENT Head: Yes normocephalic and Yes atraumatic Neck Neck: Yes trachea midline, Yes supple and Yes no JVD Carotids: normal carotid upstroke Resp Effort & Inspection: normal respiratory effort Auscultation: clear to auscultation bilaterally and diminished lung sounds Cardio Jugular venous distension: no JVD Palpation: normal PMI Rate: regular rate Rhythm: regular rhythm Heart sounds: S1 normal heart sound present, S2 normal heart sound present, no click, no gallops and Murmur heart sound present systolic mid, decrescendo and crescendo GI Auscultation: normal bowel sounds Skin General skin exam: no rashes or lesions noted Neuro General: patient oriented x3 and no focal motor deficits Speech: No Abnormal speech present Extrem General: Yes no clubbing, cyanosis or edema Psych Appearance: grossly normal Assessment & Plan Assessment & Plan (1) Aortic stenosis: Code(s): I35.0 - Nonrheumatic aortic (valve) stenosis Category: Medical Plan: Aortic stenosis related to bicuspid aortic valve. Pathophysiology of aortic stenosis was discussed with her in details. He also recommended him to have a good screened for bicuspid aortic valve. For now given that she has no significant worsening symptoms and her aortic stenosis clinically appears to be more moderate than moderately severe. Will continue monitor clinically. Continue low-dose aspirin therapy. Continue aggressive risk factor modification with statin therapy. Continue aggressive blood pressure control. Cardinal symptoms associated with aortic stenosis were discussed with her again. She understands agrees. She is advised to call me with any new symptoms. She is planning to travel to [place] and I recommend her to have a primary care physician down in [place] so she has access to health care. Will follow up in the clinic in 7 months time when she returns from [place]. Thank you for allowing me to partake in his care Orders: Orders CA echo transthoracic complete 10/10/23 I35.0 - Nonrheumatic aortic (valve) stenosis, R01.1 - Cardiac murmur, unspecified, R06.02 - Shortness of breath Coding Level of Care Code Est Pt Level 4 (77762) Diagnoses Aortic stenosis I35.0
[2023-11-13 15:18] VITALS: BP 110/76; PULSE 75; BMI 23.7
== END 2023-11-13 15:32 | disposition home or self-care (01) ==
PROVIDERS: PCP Nurse Practitioner Primary Care; Visit Provider Internal Medicine Cardiovascular Disease
DX: I35.0 Nonrheumatic aortic (valve) stenosis (principal)
CPT/HCPCS: 99214

== ENCOUNTER → 2023-11-13 15:14 | Outpatient (BNVA) | payer MEDICARE, SELFPAY | PROVIDERS: PCP Nurse Practitioner Primary Care; Visit Provider Internal Medicine Cardiovascular Disease | DX: I35.0 Nonrheumatic aortic (valve) stenosis (principal); R01.1 Cardiac murmur, unspecified; J44.9 Chronic obstructive pulmonary disease, unspecified; Z87.891 Personal history of nicotine dependence | CPT/HCPCS: 99212 ==

== ENCOUNTER 2023-11-17 12:37 | Outpatient (AMB) | payer MEDICARE, SELFPAY ==
[2023-11-17 12:58] VITALS: BP 120/72; PULSE 71; O2SAT 95; BMI 24.2
--- NOTE | 2023-11-17 12:58 | A.OFFVIS_ITS ---
Vital Signs 11/17/23 12:58 Height 5 ft 1 in Weight 127 lb 13.89 oz BMI 24.2 BP 120/72 Blood Pressure Location Rt brachial Position Sitting Pulse 71 Pulse Source Pulse Oximeter Pulse Oximetry (%) 95 Oxygen Delivery Method Room Air Intake Visit Reasons: copd Allergies barium sulfate Allergy (Unknown, Verified 11/17/23 13:02) delayed rash pain meds Adverse Reaction (Unknown, Uncoded 11/17/23 13:02) N/V HPI HPI copd: Details: Hansa is a pleasant 73-year-old female, former smoker with approximately 40pyh, recently quit in January, with underlying COPD, HTN and moderate aortic stenosis under the care of cardiology. She has been moderately controlled on Symbicort, albuterol MDI and DuoNeb PRN. She had trialed Trelegy but could not tolerate. She admits to smoking while on vacation a few weeks ago and has had worsening dyspnea and wheezing, requiring frequent use of albuterol. She also notes that she has been using Symbicort infrequently. [facility] Medical History Aortic stenosis Family History Father Substance use disorder Brother Substance use disorder CAD (coronary artery disease) Paternal Uncle Substance use disorder Social History Housing: House Patient Tobacco Use Status: Former Tobacco user Tobacco use type: Cigarette Cigarette Packs Per Day: 1 Years Smoked: 50 e-Cigarette/Vaping Use: Never Used Second Hand Smoke Exposure: Yes service: No Current occupational status: retired Cognitive needs: No Hearing needs: No Vision needs: No Review of Systems Const Denies chills, Denies excessive sweating, Denies fever(s), Denies headache(s) and Denies night sweats Eyes Denies dry eyes, Denies irritation and Denies itchy eyes ENT Reports Normal hearing present and Denies headache(s) Card Denies chest pain, Denies chest pain at rest, Denies chest pain with activity, Denies claudication, Denies leg edema, Reports dyspnea on exertion, Denies orthopnea and Denies paroxysmal nocturnal dyspnea Resp Denies chest congestion, Denies excessive phlegm production, Denies pain on inspiration, Denies pain with cough, Reports dyspnea on exertion, Denies stridor and Reports wheezing Musc Denies myalgias Neuro Reports Normal hearing present and Denies headache(s) Endo Denies excessive sweating Manjit/Lymph Denies lymphadenopathy Aller/Immun Denies itchy eyes, Denies seasonal rhinorrhea and Reports wheezing Physical Exam Vital Signs: Last Vital Signs Pulse 71 11/17/23 12:58 BP 120/72 11/17/23 12:58 Pulse Ox 95 11/17/23 12:58 Oxygen Delivery Method Room Air 11/17/23 12:58 BMI result Body Mass Index 24.2 Const General: cooperative, healthy appearing, comfortable, no acute distress, well developed and alert Orientation/consciousness: patient oriented x3 Limitations: no limitations HEENT Head: Yes normal to inspection, Yes normocephalic and Yes atraumatic Ears: hearing grossly normal bilaterally and external ears normal Eyes General: appearance normal, both eyes and all related structures Eyelids: Yes eyelids normal Sclerae: sclerae normal EOM: EOMs intact bilaterally Neck Neck: Yes normal visual inspection and Yes no lymphadenopathy Lymphatic: no lymphadenopathy noted Chest Chest palpation & inspection: normal inspection of the chest Resp Other: faint expiratory wheezes throughout ,diminished lung sounds throughout Effort & Inspection: normal respiratory effort, able to speak in complete sentences, no audible wheezes, no stridor, not tachypneic, no tripod positioning and no use of accessory muscles Cardio Jugular venous distension: no JVD Rate: regular rate Rhythm: regular rhythm Skin Other: warm, dry General skin exam: no rashes or lesions noted Neuro General: patient oriented x3 Cranial nerves: Yes Normal hearing present Cognition (Neuro): normal cognition Gait exam (Neuro): Normal gait present Extrem General: Yes normal to inspection, Yes capillary refill normal, Yes no clubbing, cyanosis or edema and Yes no pedal edema Psych Appearance: grossly normal and well kempt Speech and movement: Normal speech and movement present and Clear speech present Affect: normal affect Attitude: cooperative Thought process: Normal thought process present Thought content: Normal thought content present Insight: Good insight present (Psych) Judgement: Good judgement present (Psych) Assessment & Plan Assessment & Plan (1) COPD (chronic obstructive pulmonary disease): Code(s): J44.9 - Chronic obstructive pulmonary disease, unspecified Category: Medical (2) Dyspnea: Code(s): R06.00 - Dyspnea, unspecified Category: Medical (3) Personal history of tobacco use: Code(s): Z87.891 - Personal history of nicotine dependence Category: Social Hx (4) Multiple pulmonary nodules: Code(s): R91.8 - Other nonspecific abnormal finding of lung field Category: Medical Plan Reviewed chest CT which revealed multiple pulmonary nodules <4mm and emphysematous changes. Will repeat in one year to assess for stability, July 2024. She has been moderately controlled on current regimen, now with exacerbation. Will treat with prednisone 40 mg x 5 days. Will trial Breztri in place of symbicort, as she could not tolerate Trelegy. She is aware to call office if symptoms do not improve or if she is unable to obtain inhaler. Reeducated patient on inhaler regimen. All questions were answered and patient is in agreement of plan. Will follow up in December prior to her leaving to [place] for the winter. Orders: Orders CT chest wo IV con 9 Months R91.8 - Other nonspecific abnormal finding of lung field Medications: New prednisone 40 mg (2 x 20 mg) PO DAILY 10 tabs 0RF [id number]-nhjpslrj-nwwdkchcsl 160-9-4.8 mcg/actuation (Breztri Aerosphere) 2 inhalations inhalation BID 10.7 grams 6RF Refilled ipratropium-albuterol 0.5 mg-3 mg(2.5 mg base)/3 mL 3 mL inhalation Q6H PRN 180 mL 0RF for wheezing Discontinued prednisone see taper instructions; 40 mg Daily x3 days, 30 mg daily x3 days, 20 mg daily x3 days, 10 mg daily x3 days Discontinued Reason: Patient Completed Course 10 mg PO DIRECTED 30 tabs 0RF Coding Level of Care Code Est Pt Level 4 (68658) Diagnoses COPD (chronic obstructive pulmonary disease) J44.9 Dyspnea R06.00 Personal history of tobacco use Z87.891 Multiple pulmonary nodules R91.8
== END 2023-11-17 13:25 | disposition home or self-care (01) ==
PROVIDERS: Visit Provider Nurse Practitioner Family
DX: J44.9 Chronic obstructive pulmonary disease, unspecified (principal); R06.00 Dyspnea, unspecified; Z87.891 Personal history of nicotine dependence; R91.8 Other nonspecific abnormal finding of lung field
CPT/HCPCS: 99214

== ENCOUNTER → 2023-11-17 12:37 | Outpatient (BNVA) | payer MEDICARE, SELFPAY | PROVIDERS: Visit Provider Nurse Practitioner Family | DX: J44.9 Chronic obstructive pulmonary disease, unspecified (principal); R06.00 Dyspnea, unspecified; R91.8 Other nonspecific abnormal finding of lung field; Z87.891 Personal history of nicotine dependence | CPT/HCPCS: 99212 ==

== ENCOUNTER 2023-12-29 14:09 | Outpatient (AMB) | payer MEDICARE, SELFPAY ==
--- NOTE | 2023-12-29 14:28 | MHC.OFFVIS ---
Vital Signs 12/29/23 14:29 Height 5 ft 1 in Weight 128 lb 15.527 oz BMI 24.4 BP 114/66 Blood Pressure Location Lt brachial Position Sitting Pulse 80 Pulse Source Pulse Oximeter Pulse Oximetry (%) 97 Oxygen Delivery Method Room Air Intake Visit Reasons: COPD Allergies barium sulfate Allergy (Unknown, Verified 12/29/23 14:33) delayed rash pain meds Adverse Reaction (Unknown, Uncoded 12/29/23 14:33) N/V HPI HPI COPD: Details: Hansa is a pleasant 73-year-old female, former smoker with approximately 40pyh, recently quit in January, with underlying COPD, HTN and moderate aortic stenosis under the care of cardiology. She has been moderately controlled on Symbicort, albuterol MDI and DuoNeb PRN. She had trialed Trelegy but could not tolerate. Breztri was sent in however insurance denied. She continues to report productive cough with white sputum, dyspnea and chest tightness/wheezing with moderate exertion. [facility] Medical History Aortic stenosis Family History Father Substance use disorder Brother Substance use disorder CAD (coronary artery disease) Paternal Uncle Substance use disorder Social History Housing: House Patient Tobacco Use Status: Former Tobacco user Tobacco use type: Cigarette Cigarette Packs Per Day: 1 Years Smoked: 50 e-Cigarette/Vaping Use: Never Used Second Hand Smoke Exposure: Yes service: No Current occupational status: retired Cognitive needs: No Hearing needs: No Vision needs: No Review of Systems Const Denies chills, Denies excessive sweating, Denies fever(s), Denies headache(s) and Denies night sweats Eyes Denies dry eyes, Denies irritation and Denies itchy eyes ENT Reports Normal hearing present and Denies headache(s) Card Denies chest pain, Denies chest pain at rest, Denies chest pain with activity, Denies claudication, Denies leg edema, Reports dyspnea on exertion, Denies orthopnea and Denies paroxysmal nocturnal dyspnea Resp Denies chest congestion, Denies excessive phlegm production, Denies pain on inspiration, Denies pain with cough, Reports dyspnea on exertion, Denies stridor and Reports wheezing Musc Denies myalgias Neuro Reports Normal hearing present and Denies headache(s) Endo Denies excessive sweating Manjit/Lymph Denies lymphadenopathy Aller/Immun Denies itchy eyes, Denies seasonal rhinorrhea and Reports wheezing Physical Exam Vital Signs: Last Vital Signs Pulse 80 12/29/23 14:29 BP 114/66 12/29/23 14:29 Pulse Ox 97 12/29/23 14:29 Oxygen Delivery Method Room Air 12/29/23 14:29 BMI result Body Mass Index 24.4 Const General: cooperative, healthy appearing, comfortable, no acute distress, well developed and alert Orientation/consciousness: patient oriented x3 Limitations: no limitations HEENT Head: Yes normal to inspection, Yes normocephalic and Yes atraumatic Ears: hearing grossly normal bilaterally and external ears normal Eyes General: appearance normal, both eyes and all related structures Eyelids: Yes eyelids normal Sclerae: sclerae normal EOM: EOMs intact bilaterally Neck Neck: Yes normal visual inspection and Yes no lymphadenopathy Lymphatic: no lymphadenopathy noted Chest Chest palpation & inspection: normal inspection of the chest Resp Effort & Inspection: normal respiratory effort, able to speak in complete sentences, no audible wheezes, no stridor, not tachypneic, no tripod positioning and no use of accessory muscles Auscultation: diminished lung sounds Cardio Jugular venous distension: no JVD Rate: regular rate Rhythm: regular rhythm Skin Other: warm, dry General skin exam: no rashes or lesions noted Neuro General: patient oriented x3 Cranial nerves: Yes Normal hearing present Cognition (Neuro): normal cognition Gait exam (Neuro): Normal gait present Extrem General: Yes normal to inspection, Yes capillary refill normal, Yes no clubbing, cyanosis or edema and Yes no pedal edema Psych Appearance: grossly normal and well kempt Speech and movement: Normal speech and movement present and Clear speech present Affect: normal affect Attitude: cooperative Thought process: Normal thought process present Thought content: Normal thought content present Insight: Good insight present (Psych) Judgement: Good judgement present (Psych) Assessment & Plan Assessment & Plan (1) COPD (chronic obstructive pulmonary disease): Code(s): J44.9 - Chronic obstructive pulmonary disease, unspecified Category: Medical (2) Dyspnea: Code(s): R06.00 - Dyspnea, unspecified Category: Medical (3) Personal history of tobacco use: Code(s): Z87.891 - Personal history of nicotine dependence Category: Social Hx (4) Multiple pulmonary nodules: Code(s): R91.8 - Other nonspecific abnormal finding of lung field Category: Medical Plan Chest CT which revealed multiple pulmonary nodules <4mm and emphysematous changes. Order placed at last visit to assess for stability, July 2024. She has been moderately controlled on current regimen, will add Spiriva, as she could not tolerate Trelegy and Breztri denied by insurance. All questions were answered and patient is in agreement of plan. Will follow up in June when she returns from [place]. Medications: New tiotropium bromide 2.5 mcg/actuation (Spiriva Respimat) 2 puffs inhalation DAILY 4 grams 6RF Refilled ipratropium-albuterol 0.5 mg-3 mg(2.5 mg base)/3 mL 3 mL inhalation Q6H PRN 180 mL 0RF for wheezing budesonide-formoterol 160-4.5 mcg/actuation (Symbicort) 2 puffs inhalation Q12H 10.2 grams 3RF Coding Level of Care Code Est Pt Level 3 (81992) Diagnoses COPD (chronic obstructive pulmonary disease) J44.9 Dyspnea R06.00 Personal history of tobacco use Z87.891 Multiple pulmonary nodules R91.8
[2023-12-29 14:29] VITALS: BP 114/66; PULSE 80; O2SAT 97; BMI 24.4
== END 2023-12-29 14:55 | disposition home or self-care (01) ==
PROVIDERS: Visit Provider Nurse Practitioner Family
DX: J44.9 Chronic obstructive pulmonary disease, unspecified (principal); R06.00 Dyspnea, unspecified; Z87.891 Personal history of nicotine dependence; R91.8 Other nonspecific abnormal finding of lung field
CPT/HCPCS: 99213

== ENCOUNTER → 2023-12-29 14:09 | Outpatient (BNVA) | payer MEDICARE, SELFPAY | PROVIDERS: Visit Provider Nurse Practitioner Family | DX: J44.9 Chronic obstructive pulmonary disease, unspecified (principal); R06.09 Other forms of dyspnea; R91.8 Other nonspecific abnormal finding of lung field; Z87.891 Personal history of nicotine dependence | CPT/HCPCS: 99212 ==

== ENCOUNTER 2024-06-28 12:17 | Outpatient (AMB) | payer MEDICARE, SELFPAY ==
--- NOTE | 2024-06-28 12:31 | A.OFFVIS_ITS ---
Vital Signs 06/28/24 12:34 Height 5 ft 1 in Weight 125 lb 10.616 oz BMI 23.7 BP 122/74 Blood Pressure Location Lt brachial Position Sitting Pulse 80 Intake Visit Reasons: r/s 06/09/24 7 mos followup Intake Note: Follow-up with ekg feeling good Ruling Technician Required: No Allergies Agxiljq-WVL-MjD Reductase Inhibitor Allergy (Mild, Verified 06/28/24 12:39) Muscle cramps barium sulfate Allergy (Unknown, Verified 12/29/23 14:33) delayed rash pain meds Adverse Reaction (Unknown, Uncoded 12/29/23 14:33) N/V Medication List - Last Reconciled 06/28/24 by Tobias Flores MD albuterol sulfate 90 mcg/actuation (Ventolin HFA) 1 puff PO QID PRN aspirin (Ecotrin Low Strength) 81 mg PO DAILY budesonide-formoterol 160-4.5 mcg/actuation (Symbicort) 2 puffs inhalation Q12H vcgjtddjnz-dkiqsaxy-selijzlafe 160-9-4.8 mcg/actuation (Breztri Aerosphere) 2 inhalations inhalation BID ezetimibe (Zetia) 10 mg PO DAILY ipratropium-albuterol 0.5 mg-3 mg(2.5 mg base)/3 mL 3 mL inhalation Q6H PRN losartan 50 mg PO DAILY tiotropium bromide 2.5 mcg/actuation (Spiriva Respimat) 2 puffs inhalation DAILY HPI Comments Details: Hansa comes for follow-up. Overall she has been doing well from cardiac perspective. She has no new symptoms. She says when she goes up a flight of stairs carrying heavy loads she would get short of breath. However these symptoms have not changed and she thinks these are related to COPD. She is taking all her medications. No worsening shortness of breath, orthopnea, PND, leg edema. No exertional chest pain. No lightheadedness, syncope. Taking aspirin. Says a blood pressures been generally well controlled. [facility] BY [facility] Medical History Vitamin D deficiency Dyslipidemia Aortic stenosis Family History Father Substance use disorder Brother Substance use disorder CAD (coronary artery disease) Paternal Uncle Substance use disorder Social History Housing: House Patient Tobacco Use Status: Former Tobacco user Tobacco use type: Cigarette Cigarette Packs Per Day: 1 Years Smoked: 50 e-Cigarette/Vaping Use: Never Used Second Hand Smoke Exposure: Yes service: No Current occupational status: retired Cognitive needs: No Hearing needs: No Vision needs: No Review of Systems Const Denies chills, Denies fatigue, Denies fever(s), Denies frequent falls, Denies weakness, Denies weight gain and Denies weight loss ENT Denies dizziness Card Denies chest pain, Denies leg edema, Denies lightheadedness, Denies palpitations, Denies dyspnea, Denies dyspnea on exertion, Denies orthopnea and Denies other (loss of consciousness) Resp Denies cough, Denies dyspnea and Denies dyspnea on exertion GI Denies hematochezia and Denies change in stool character Musc Denies abnormal gait, Denies muscle weakness, Denies numbness, Denies radiating pain into limb and Denies tingling Neuro Denies Abnormal speech present, Denies abnormal gait, Denies dizziness, Denies frequent falls, Denies numbness, Denies tingling and Denies weakness Endo Denies fatigue and Denies palpitations Physical Exam Vital Signs: Last Vital Signs Pulse 80 06/28/24 12:34 BP 122/74 06/28/24 12:34 BMI result Body Mass Index 23.7 Const General: cooperative, comfortable, no acute distress, alert, awake and Physically active Nutritional Appearance: thin Orientation/consciousness: patient oriented x3 Limitations: no limitations HEENT Head: Yes normocephalic and Yes atraumatic Neck Neck: Yes trachea midline, Yes supple and Yes no JVD Carotids: normal carotid upstroke Resp Effort & Inspection: normal respiratory effort Auscultation: clear to auscultation bilaterally and diminished lung sounds Cardio Jugular venous distension: no JVD Palpation: normal PMI Rate: regular rate Rhythm: regular rhythm Heart sounds: S1 normal heart sound present, S2 normal heart sound present, no click, no gallops and Murmur heart sound present systolic late, decrescendo and crescendo GI Auscultation: normal bowel sounds Skin General skin exam: no rashes or lesions noted Neuro General: patient oriented x3 and no focal motor deficits Speech: No Abnormal speech present Extrem General: Yes no clubbing, cyanosis or edema Psych Appearance: grossly normal Office Procedures EKG Details: EKG shows normal sinus rhythm with right atrial enlargement otherwise normal EKG [id number], Complete Assessment & Plan Assessment & Plan (1) Aortic stenosis: Code(s): I35.0 - Nonrheumatic aortic (valve) stenosis Category: Medical Plan: Aortic stenosis which clinically appears to be moderate to severe. As possibly related to bicuspid aortic valve. She is currently having no symptoms that are worsening at this point time. Aortic stenosis appears to be stable clinically. Cardinal symptoms associated with aortic stenosis were discussed. She is been intolerant to statin therapy and is currently on ezetimibe therapy. Will consider repeat lipid panel. If LDL is still elevated about 100 would consider addition of bempedoic acid to her regimen. Alternatives really can consider PCSK9 inhibitor therapy as well. Continue low-dose aspirin therapy. Blood pressure is currently well optimized advised to continue losartan. Advised to continue maintain activity level call me with new symptoms. Advised to monitor blood pressure at home maintain a log with goal blood pressure less than 130/84. Follow-up echocardiogram in 3 months time and follow up in the clinic in 4 months time, sooner p.r.n.. Thank you for allowing me to partake in her care Orders: Orders CA echo transthoracic complete 3 Months I35.0 - Nonrheumatic aortic (valve) stenosis Coding Level of Care Code Est Pt Level 4 (20316) Complex EM visit Add On G2211 Diagnoses Aortic stenosis I35.0 CPT Codes EKG - CPT: 55353-[id number], Complete ([id number])
[2024-06-28 12:34] VITALS: BP 122/74; PULSE 80; BMI 23.7
== END 2024-06-28 12:55 | disposition home or self-care (01) ==
LOC: HO.HCS 12:18
PROVIDERS: Visit Provider Internal Medicine Cardiovascular Disease
DX: I35.0 Nonrheumatic aortic (valve) stenosis (principal)
CPT/HCPCS: 93010; 99214; G2211

== ENCOUNTER → 2024-06-28 12:17 | Outpatient (BNVA) | payer MEDICARE, SELFPAY | PROVIDERS: Visit Provider Internal Medicine Cardiovascular Disease | DX: I35.0 Nonrheumatic aortic (valve) stenosis (principal); I51.7 Cardiomegaly | CPT/HCPCS: 93005; 99212 ==

== ENCOUNTER 2024-08-02 15:00 | Outpatient (AMB) | payer MEDICARE, SELFPAY ==
[2024-08-02 15:05] VITALS: BP 130/62; PULSE 85; O2SAT 94; BMI 23.5
--- NOTE | 2024-08-02 15:05 | A.OFFVIS_ITS ---
Vital Signs 08/02/24 15:05 Height 5 ft 1 in Weight 124 lb 8.979 oz BMI 23.5 BP 130/62 Blood Pressure Location Lt brachial Position Sitting Pulse 85 Pulse Source Pulse Oximeter Pulse Oximetry (%) 94 Oxygen Delivery Method Room Air Intake Visit Reasons: copd Allergies Tuvllki-FNL-DpY Reductase Inhibitor Allergy (Mild, Verified 08/02/24 15:09) Muscle cramps barium sulfate Allergy (Unknown, Verified 08/02/24 15:09) delayed rash pain meds Adverse Reaction (Unknown, Uncoded 08/02/24 15:09) N/V HPI HPI copd: Details: Hansa is a pleasant 73-year-old female, former 40 pack smoker quit in January 2024, with underlying moderate COPD, HTN and moderate aortic stenosis under the care of cardiology. She has been moderately controlled on Symbicort, albuterol MDI and DuoNeb PRN. She had trialed Trelegy but could not tolerate. Breztri was sent in however insurance denied. At the last visit, Spiriva was sent in addition to Symbicort however she has been unable to obtain. She continues to use albuterol MDI and DuoNeb frequently. She reports over the last two weeks with cold like symptoms after exposure to grandson with URI. She initiatlly reported fevers, now denies and continues with productiive cough with clear sputum, wheezing and increased dyspnea. Denies any chest congestion. [facility]LY [facility] Medical History Vitamin D deficiency Dyslipidemia Aortic stenosis Family History Father Substance use disorder Brother Substance use disorder CAD (coronary artery disease) Paternal Uncle Substance use disorder Social History Housing: House Patient Tobacco Use Status: Former Tobacco user Tobacco use type: Cigarette Cigarette Packs Per Day: 1 Years Smoked: 50 e-Cigarette/Vaping Use: Never Used Second Hand Smoke Exposure: Yes service: No Current occupational status: retired Cognitive needs: No Hearing needs: No Vision needs: No Review of Systems Const Denies chills, Denies excessive sweating, Denies fever(s), Denies headache(s) and Denies night sweats Eyes Denies dry eyes, Denies irritation and Denies itchy eyes ENT Reports Normal hearing present and Denies headache(s) Card Denies chest pain, Denies chest pain at rest, Denies chest pain with activity, Denies claudication, Denies leg edema, Reports dyspnea on exertion, Denies orthopnea and Denies paroxysmal nocturnal dyspnea Resp Denies change in phlegm color, Denies chest congestion, Reports cough, Denies hemoptysis, Denies excessive phlegm production, Denies pain on inspiration, Denies pain with cough, Reports dyspnea on exertion, Denies stridor and Reports wheezing Musc Denies myalgias Neuro Reports Normal hearing present and Denies headache(s) Endo Denies excessive sweating Manjit/Lymph Denies lymphadenopathy Aller/Immun Denies itchy eyes, Denies seasonal rhinorrhea and Reports wheezing Physical Exam Vital Signs: Last Vital Signs Pulse 85 08/02/24 15:05 BP 130/62 08/02/24 15:05 Pulse Ox 94 08/02/24 15:05 Oxygen Delivery Method Room Air 08/02/24 15:05 BMI result Body Mass Index 23.5 Const General: cooperative, healthy appearing, comfortable, no acute distress, well developed and alert Orientation/consciousness: patient oriented x3 Limitations: no limitations HEENT Head: Yes normal to inspection, Yes normocephalic and Yes atraumatic Ears: hearing grossly normal bilaterally and external ears normal Eyes General: appearance normal, both eyes and all related structures Eyelids: Yes eyelids normal Sclerae: sclerae normal EOM: EOMs intact bilaterally Neck Neck: Yes normal visual inspection and Yes no lymphadenopathy Lymphatic: no lymphadenopathy noted Chest Chest palpation & inspection: normal inspection of the chest Resp Effort & Inspection: normal respiratory effort, able to speak in complete sentences, no audible wheezes, no stridor, not tachypneic, no tripod positioning and no use of accessory muscles Auscultation: diminished lung sounds Cardio Jugular venous distension: no JVD Rate: regular rate Rhythm: regular rhythm Skin Other: warm, dry General skin exam: no rashes or lesions noted Neuro General: patient oriented x3 Cranial nerves: Yes Normal hearing present Cognition (Neuro): normal cognition Gait exam (Neuro): Normal gait present Extrem General: Yes normal to inspection, Yes capillary refill normal, Yes no clubbing, cyanosis or edema and Yes no pedal edema Psych Appearance: grossly normal and well kempt Speech and movement: Normal speech and movement present and Clear speech present Affect: normal affect Attitude: cooperative Thought process: Normal thought process present Thought content: Normal thought content present Insight: Good insight present (Psych) Judgement: Good judgement present (Psych) Assessment & Plan Assessment & Plan (1) COPD (chronic obstructive pulmonary disease): Code(s): J44.9 - Chronic obstructive pulmonary disease, unspecified Category: Medical (2) Dyspnea: Code(s): R06.00 - Dyspnea, unspecified Category: Medical (3) Personal history of tobacco use: Code(s): Z87.891 - Personal history of nicotine dependence Category: Social Hx (4) Multiple pulmonary nodules: Code(s): R91.8 - Other nonspecific abnormal finding of lung field Category: Medical Plan Will treat exacerbation with prednisone, hold off on abx for now. She is aware to call if symptoms worsen. Prior Chest CT 2023 revealed multiple pulmonary nodules <4mm and emphysematous changes. Order placed at last visit to assess for stability, July 2024 however patient never received call. Will have staff look into this, patient may need to call CS to schedule. She has been moderately controlled on current regimen, will attempt to add Spiriva again, as she could not tolerate Trelegy and Breztri denied by insurance. All questions were answered and patient is in agreement of plan. Will follow up in 6-8 weeks or sooner if needed. Medications: New prednisone 40 mg (2 x 20 mg) PO DAILY 10 tabs 0RF Refilled tiotropium bromide 2.5 mcg/actuation (Spiriva Respimat) 2 puffs inhalation DAILY 4 grams 6RF Coding Level of Care Code Est Pt Level 4 (83757) Diagnoses COPD (chronic obstructive pulmonary disease) J44.9 Dyspnea R06.00 Personal history of tobacco use Z87.891 Multiple pulmonary nodules R91.8
--- OUTSIDE RECORDS SUMMARY | 2024-08-02 16:47 | XMS_ITS | Patient Health Record ---
Author Organization [facility]. Address [address] [id number] Care Team Providers Care Sales Ledger Clerk Name Role Phone Harinder Saldivar Primary Care Provider Allergies Allergen (clinical drug ingredient) Drug/Non Drug Allergy documented on EMR Reaction Allergy Type Onset Date Status Pain medications/Opioid s (uncoded) Vomitting Allergy Active varenicline Chantix Rash in [place] Drug Allergy Active Results Component Value Reference Range Notes DEXA Hip and Spine Reviewed date:06/08/2024 05:23:05 AM Interpretation:Osteopenia Multiple sites Performing Lab: Notes/Report: Osteopenia Multiple sites URINALYSIS, COMPLETE Reviewed date:06/08/2024 05:21:29 AM Interpretation:Normal Performing Lab:[facility] [address] [place], [address] Rick Harvey MD Notes/Report: Received Date: [id number] FASTING:YES FASTING: YES COLOR YELLOW YELLOW APPEARANCE CLEAR CLEAR SPECIFIC GRAVITY 1.019 1.001-1.035 PH 5.5 5.0-8.0 GLUCOSE NEGATIVE NEGATIVE BILIRUBIN NEGATIVE NEGATIVE KETONES NEGATIVE NEGATIVE OCCULT BLOOD NEGATIVE NEGATIVE PROTEIN NEGATIVE NEGATIVE NITRITE NEGATIVE NEGATIVE LEUKOCYTE ESTERASE NEGATIVE NEGATIVE WBC NONE SEEN < OR = 5 /HPF RBC NONE SEEN < OR = 2 /HPF SQUAMOUS EPITHELIAL CELLS 0-5 < OR = 5 /HPF BACTERIA NONE SEEN NONE SEEN /HPF HYALINE CAST NONE SEEN NONE SEEN /LPF NOTE This urine was analyzed for the presence of WBC, RBC, bacteria, casts, and other formed elements. Only those elements seen were reported. Lipid Panel Reviewed date:06/08/2024 05:21:29 AM Interpretation:Abnormal Performing Lab:[facility] [place], [place], [address] Rick Harvey MD Notes/Report: Received Date: FASTING:YES FASTING: YES CHOLESTEROL, TOTAL 246 <200 mg/dL HDL CHOLESTEROL 65 > OR = 50 mg/dL TRIGLYCERIDES 126 <150 mg/dL LDL-CHOLESTEROL 156 Reference range: <100 Desirable range <100 mg/dL for primary prevention; <70 mg/dL for patients with CHD or diabetic patients with > or = 2 CHD risk factors. LDL-C is now calculated using the Avel calculation, which is a validated novel method providing better accuracy than the Friedewald equation in the estimation of LDL-C. Lex SS et al. FARIDA. 2013;310(19): 2421-1398 (http://education.[employer]/faq/GYJ191) CHOL/HDLC RATIO 3.8 <5.0 (calc) NON HDL CHOLESTEROL 181 <130 mg/dL (calc) For patients with diabetes plus 1 major ASCVD risk factor, treating to a non-HDL-C goal of <100 mg/dL (LDL-C of <70 mg/dL) is considered a therapeutic option. CMP Reviewed date:06/08/2024 05:21:29 AM Interpretation:Normal Performing Lab:[facility] [place], [place], [address] Rick Harvey MD Notes/Report: Received Date: [id number] FASTING:YES FASTING: YES GLUCOSE 86 65-99 mg/dL Fasting reference interval UREA NITROGEN (BUN) 14 7-25 mg/dL CREATININE 0.92 0.60-1.00 mg/dL EGFR 66 > OR = 60 mL/min/1.73m2 BUN/CREATININE RATIO SEE NOTE: 6-22 (calc) Not Reported: BUN and Creatinine are within reference range. SODIUM 140 135-146 mmol/L POTASSIUM 3.6 3.5-5.3 mmol/L CHLORIDE 102 98-110 mmol/L CARBON DIOXIDE 29 20-32 mmol/L CALCIUM 9.4 8.6-10.4 mg/dL PROTEIN, TOTAL 6.3 6.1-8.1 g/dL ALBUMIN 4.2 3.6-5.1 g/dL GLOBULIN 2.1 1.9-3.7 g/dL (calc) ALBUMIN/GLOBULIN RATIO 2.0 1.0-2.5 (calc) BILIRUBIN, TOTAL 0.5 0.2-1.2 mg/dL ALKALINE PHOSPHATASE 45 37-153 U/L AST 17 10-35 U/L ALT 13 6-29 U/L CBC (INCLUDES DIFF/PLT) Reviewed date:06/08/2024 05:21:29 AM Interpretation:Normal Performing Lab:[facility], [facility], [facility] [place], [address] Rick Harvey MD Notes/Report: Received Date: FASTING:YES FASTING: YES WHITE BLOOD CELL COUNT 7.6 3.8-10.8 Thousand/ uL RED BLOOD CELL COUNT 4.18 3.80-5.10 Million/uL HEMOGLOBIN 12.9 11.7-15.5 g/dL HEMATOCRIT 38.4 35.0-45.0 % MCV 91.9 80.0-100.0 fL MCH 30.9 27.0-33.0 pg MCHC 33.6 32.0-36.0 g/dL For adults, a slight decrease in the calculated MCHC value (in the range of 30 to 32 g/dL) is most likely not clinically significant; however, it should be interpreted with caution in correlation with other red cell parameters and the patient's clinical condition. RDW 12.3 11.0-15.0 % PLATELET COUNT 262 140-400 Thousand/uL MPV 9.1 7.5-12.5 fL ABSOLUTE NEUTROPHILS 4948 1773-7921 cells/uL ABSOLUTE LYMPHOCYTES 3778 943-8750 cells/uL ABSOLUTE MONOCYTES 600 200-950 cells/uL ABSOLUTE EOSINOPHILS 220 15-500 cells/uL ABSOLUTE BASOPHILS 38 0-200 cells/uL NEUTROPHILS 65.1 LYMPHOCYTES 23.6 MONOCYTES 7.9 EOSINOPHILS 2.9 BASOPHILS 0.5 REFLEXIVE URINE CULTURE Reviewed date:05/14/2024 08:01:35 AM Interpretation: Performing Lab:[facility], [facility], [address] [place], [place], [address] Rick Harvey MD Notes/Report: Received Date: FASTING:NO FASTING: NO REFLEXIVE URINE CULTURE NO C ULTURE INDICATED URINALYSIS, COMPLETE W/REFLE X TO CULTURE Reviewed date:05/14/2024 08:01:49 AM Interpretation: Performing Lab:[facility], [facility], [address] [place], [place], [address] Rick Harvey MD Notes/Report: Received Date: FASTING:NO FASTING: NO COLOR YELLOW YELLOW APPEARANCE CLEAR CLEAR SPECIFIC GRAVITY 1.017 1.001-1.035 PH 7.0 5.0-8.0 GLUCOSE NEGATIVE NEGATIVE BILIRUBIN NEGATIVE NEGATIVE KETONES NEGATIVE NEGATIVE OCCULT BLOOD NEGATIVE NEGATIVE PROTEIN NEGATIVE NEGATIVE NITRITE NEGATIVE NEGATIVE LEUKOCYTE ESTERASE NEGATIVE NEGATIVE WBC NONE SEEN < OR = 5 /HPF RBC 0-2 < OR = 2 /HPF SQUAMOUS EPITHELIAL CELLS NONE SEEN < OR = 5 /HPF BACTERIA NONE SEEN NONE SEEN /HPF CALCIUM OXALATE CRYSTALS FEW NONE OR FEW /HPF HYALINE CAST NONE SEEN NONE SEEN /LPF NOTE This urine was analyzed for the presence of WBC, RBC, bacteria, casts, and other formed elements. Only those elements seen were reported. Reason For Referral No Information Medications Medication SIG (Take, Route, Frequency, Duration) Notes Start Date End Date Status Triamcinolone Acetonide 0.1 % 1 application Externally QD Active Ipratropium-Albuterol 0.5-2.5 (3) MG/3ML 3 mL as needed Inhalation every 6 hrs for 100 days Active Bactrim DS 800-160 MG 1 tablet Orally tw ice a day for 10 days 05/13/2024 Not-Taking Ventolin HFA 108 (90 Base) MCG/ACT 1 puff as needed Inhalation every 4 hrs for 30 days 03/26/2024 Active Vitamin D3 50 MCG (2000 UT) 1 tablet Orally Once a day 06/10/2024 Active Budesonide-Formoterol Fumarate 160-4.5 MCG/ACT 2 puffs Inhalation Q12hrs 03/26/2024 Active Losartan Potassium 50 MG 1/2 tablet Oral ly Once a day for 100 days Active Vitamin D3 Complete Active Calcium 600 MG 1 tablet with meals Orally Twice a day Active Ezetimibe 10 MG 1 tablet Orally Once a day for 30 days 06/08/2024 Active Aspirin 81 MG 1 capsule Orally Onc e a day for 30 day(s) Active Social History Tobacco Use: Social History Observation Description Date Details (start date - stop date) Never Smoker NA - NA AUDIT-C (Standard) Question Answer Notes Did you have a drink containing alcohol in the p ast year? 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) Active confirmed Problem 47695378 Simple chronic bronchitis (J41.0) Active confirmed Problem 579762135 Adverse effect o f antihyperlipidemic and antiarteriosclerotic drugs, initial encounter (T46.6X5A) Active confirmed Problem 83106606 Essential hypert ension (I10) Active confirmed Problem 257322486 Mixed hyperlipid emia (E78.2) Active confirmed Problem 96579669 Atopic dermatiti s and related condition (L20.9) Active confirmed Problem 440307553 Atherosclerosis of [place] coronary artery of [place] heart without angina pectoris (I25.10) Active confirmed Problem 42729126440085984 Cigarette christiane stacie dependence with other nicotine-induced disorder (F17.218) Active confirmed Problem 91192330 Chronic obstruct edgar pulmonary disease, unspecified COPD type (J44.9) Active confirmed Problem 467058603 Nonrheumatic aor tic valve stenosis (I35.0) Active confirmed Problem 853486853 Screening mammog scott for breast cancer (Z12.31) Active confirmed Problem 612248611 Screening for drea ng cancer (Z12.2) Active confirmed Problem 006526736 Aneurysm of asce nding aorta without rupture (I71.21) Active confirmed Vital Signs Heart Rate 67 /min 06/08/2024 Blood pressure diastolic 74 mm Hg 06/08/2024 Height 59 in 06/08/2024 Blood pressure systolic 120 mm Hg 06/08/2024 Weight 128 lbs 06/08/2024 BMI 25.85 kg/m2 06/08/2024 Encounters Encounter Location Date Provider Diagnosis Medical [address] [id number] 03/30/2024 Harinder Saldivar Atherosclerosis of n ative coronary artery of [place] heart without angina pectoris I25.10 ; Essential hypertension I10 ; Chronic obstructive pulmonary disease, unspecified COPD type J44.9 ; Personal history of tobacco use, presenting hazards to health Z87.891 ; Atopic dermatitis and related condition L20.9 ; Nonrheumatic aortic valve stenosis I35.0 ; Screening for lung cancer Z12.2 ; Screening mammogram for breast cancer Z12.31 ; Screening for osteoporosis Z13.820 ; Colon cancer screening Z12.11 ; Drug-induced myopathy G72.0 and Adverse effect of antihyperlipidemic and antiarteriosclerotic drugs, initial encounter T46.6X5A Medical [address] [id number] 06/08/2024 Harinder Saldivar Atherosclerosis of n ative coronary artery of [place] heart without angina pectoris I25.10 ; Essential hypertension I10 ; Chronic obstructive pulmonary disease, unspecified COPD type J44.9 ; Personal history of tobacco use, presenting hazards to health Z87.891 ; Atopic dermatitis and related condition L20.9 ; Nonrheumatic aortic valve stenosis I35.0 ; Mixed hyperlipidemia E78.2 ; Aneurysm of ascending aorta without rupture I71.21 ; Drug-induced myopathy G72.0 and Adverse effect of antihyperlipidemic and antiarteriosclerotic drugs, initial encounter T46.6X5A Medical [facility], [address] [id number] 03/26/2024 Harinder Saldivar Medical [address] [id number] 04/19/2024 Harinder Saldivar Medical [address] [id number] 05/13/2024 Harinder Saldivar UTI symptoms R39.9 [facility] [address] [id number] 05/14/2024 Harinder Saldivar [facility] [address] [id number] 06/10/2024 Harinder Saldivar Assessments Encounter Date Diagnosis (ICD Code) Assessment Notes Treatment Notes Treatment Clinical Notes Section Notes 03/30/2024 Atherosclerosis of [place] coronary artery of [place] heart without angina pectoris (ICD-10 - I25.10) 05/13/2024 UTI symptoms (ICD-10 - R39.9) 03/30/2024 Essential hypertensi on (ICD-10 - I10) Non Pharmacological Treatment of Hypertension : DASH [ Dietary Approaches to Stop Hypertension]: Diet high in Fruits & Vegetable. Low Fat/No Fat Dairy Products. Whole Grains. Paultry & Fatty Fish eg [place], Sardines etc. Nuts- Walnuts, Almonds, Hazelnuts. Low in Sweets & sweetened beverages & red meat. Low salt- 2.4 gm/day. Regular Exercise- 30 minutes walk 5 time a week. Weight Loss. Reduce Alcohol intake. 1. Control of Hypertension. 2. Control of Hyperlipidemia with LDL- Cholesterol at goal. 3. Control of Diabetes Mellitus/ Pre-Diabetes. 4. Smoking cessation 5. Treatment of Obesity. 6. Regular Ecercise. 06/08/2024 Essential hypertensi on (ICD-10 - I10) Non Pharmacological Treatment of Hypertension : DASH [ Dietary Approaches to Stop Hypertension]: Diet high in Fruits & Vegetable. Low Fat/No Fat Dairy Products. Whole Grains. Paultry & Fatty Fish eg [place], Sardines etc. Nuts- Walnuts, Almonds, Hazelnuts. Low in Sweets & sweetened beverages & red meat. Low salt- 2.4 gm/day. Regular Exercise- 30 minutes walk 5 time a week. Weight Loss. Reduce Alcohol intake. 1. Control of Hypertension. 2. Control of Hyperlipidemia with LDL- Cholesterol at goal. 3. Control of Diabetes Mellitus/ Pre-Diabetes. 4. Smoking cessation 5. Treatment of Obesity. 6. Regular Ecercise. 06/08/2024 Atherosclerosis of [place] coronary artery of [place] heart without angina pectoris (ICD-10 - I25.10) Life Style Management: Mediterranean Diet Diet- Avoid Red Meat-Like Beef, Pork, Liver. Rec. White meat-Like Poultry, Fish- [place], Sardines, Mackerel. Avoid Saturated Fats-Processed foods. Rec. Monounsaturated Fats- Boston Oil, Canola oil. Rec. Polyunsaturated Fats Williams 3 Fatty Acid. Avoid Sweets & Sweetened Beverages. Rec. Whole Grains, Beans, Legumes etc. Rec. Nuts-Walnuts, Almonds, [place] nuts. Rec. Fruits & Vegetables. Rec. High Fiber Diet. Regular Exercise- 30 minutes walk 5 times a week. 06/08/2024 Chronic obstructive pulmonary disease, unspecified COPD type (ICD-10 - J44.9) Smoking cessation. Prevention of respiratory tract infection. Rec. Vaccine for Influenza every year Rec. Vaccines for Pneumonia- Prevnar-13 & Pneumovax- 24 Pulmonary Rehabilatation. Incentive Spirometry Pulmonary Toilet- Mucinex. Regular Exercise. Breathing Exercise-Pursed lip breathing. Use Harmonica. 03/30/2024 Chronic obstructive pulmonary disease, unspecified COPD type (ICD-10 - J44.9) Smoking cessation. Prevention of respiratory tract infection. Rec. Vaccine for Influenza every year Rec. Vaccines for Pneumonia- Prevnar-13 & Pneumovax- 24 Pulmonary Rehabilatation. Incentive Spirometry Pulmonary Toilet- Mucinex. Regular Exercise. Breathing Exercise-Pursed lip breathing. Use Harmonica. 03/30/2024 Personal history of tobacco use, presenting hazards to health (ICD-10 - Z87.891) 06/08/2024 Personal history of tobacco use, presenting hazards to health (ICD-10 - Z87.891) 03/30/2024 Atopic dermatitis an d related condition (ICD-10 - L20.9) 06/08/2024 Atopic dermatitis an d related condition (ICD-10 - L20.9) 1. Bathe or Shower in lukewarm water 5-10 minutes once a day. Use soap- free cleanser eg. Dove, Cetaphil Ultragentle, Basis etc. 2. Pat dry after bathing and apply moisturizer within 3 minutes. 3. Recommended moiturizer are Eucerine, Petrolatum, Coconut Oil or Cera-Ve etc. 4. Apply Moisturizer twice a day. 5. Avoid triggers and allergens. 6. Break esab-Uzunjbl-mgpt cycle. 7. For severe Cases- Dilute bleach bath 06/08/2024 Nonrheumatic aortic valve stenosis (ICD-10 - I35.0) 03/30/2024 Nonrheumatic aortic valve stenosis (ICD-10 - I35.0) 06/08/2024 Mixed hyperlipidemia (ICD-10 - E78.2) 03/30/2024 Screening for lung cancer (ICD-10 - Z12.2) 06/08/2024 Aneurysm of ascendin g aorta without rupture (ICD-10 - I71.21) Smoking Cessation Control of HTN,Lipids & Diabetes Mellitus Monitor Size of Aneurysm by Ultrasound/ CTA or MRA Monitor for symptoms for Rupture aneurysm like abdominal pain, back pain etc Cardiology/ Surgical Consultation 03/30/2024 Screening mammogram for breast cancer (ICD-10 - Z12.31) 06/08/2024 Drug-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 - G72.0) 03/30/2024 Screening for osteoporosis (ICD-10 - Z13.820) 03/30/2024 Colon cancer screeni ng (ICD-10 - Z12.11) 06/08/2024 Adverse effect of antihyperlipidemic and antiarteriosclerotic drugs, initial encounter (ICD-10 - T46.6X5A) 03/30/2024 Drug-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 - G72.0) 03/30/2024 Adverse effect of antihyperlipidemic and antiarteriosclerotic drugs, initial encounter (ICD-10 - T46.6X5A) Plan Of Treatment Next Appt Details Provider Name:Harinder wei, 02/01/2025 12:00:00 PM, [address] [place] [address], [phone], Insurance Providers Payer Name Payer Address Payer Phone Subscriber Number Group Number Insured Name Patient Relationship to Insured Coverage Start Date Coverage End Date [employer] M[employer] ADV [address] [address] [place] [address] [id number] Hansa Mills Self - patient is the insured Medical (General) History Medical History History ICD Code Chronic Obstructive Pulmonary disease Aortic stenosis Surgical History Surgery Date(Month/Year) Tonsillectomy Tubal ligation 1975
== END 2024-08-02 15:39 | disposition home or self-care (01) ==
LOC: HO.HPS 15:01
PROVIDERS: PCP Internal Medicine; Visit Provider Nurse Practitioner Family
DX: J44.9 Chronic obstructive pulmonary disease, unspecified (principal); R06.00 Dyspnea, unspecified; Z87.891 Personal history of nicotine dependence; R91.8 Other nonspecific abnormal finding of lung field
CPT/HCPCS: 99214

== ENCOUNTER → 2024-08-02 15:00 | Outpatient (BNVA) | payer MEDICARE, SELFPAY | PROVIDERS: PCP Internal Medicine; Visit Provider Nurse Practitioner Family | DX: I35.0 Nonrheumatic aortic (valve) stenosis (principal); J44.9 Chronic obstructive pulmonary disease, unspecified; R06.00 Dyspnea, unspecified; R91.8 Other nonspecific abnormal finding of lung field; Z87.891 Personal history of nicotine dependence | CPT/HCPCS: 99212 ==

== ENCOUNTER → 2024-09-28 11:18 | Outpatient (REF) | payer MEDICARE, SELFPAY ==
--- NOTE | 2024-09-28 11:20 | CA_ITS ---
Transthoracic Echocardiogram Patient (Last, First, Middle): Hnasa Mills J Gender: Female Date of : 1950 Age: 73 Procedure Date: 09/28/2024 Procedure Type: Transthoracic Echocardiogram Location: OP Height: 154. cm Weight: 54.43 kg BSA: 1.51 m2 Heart Rate: 61 bpm BP: 132 / 80 mmHg Casino Attendant: ESAU/CHANDLER Referring MD: Toibas Flores MD Symptoms: I35.0 - Nonrheumatic aortic (valve) stenosis Study Quality: Adequate ECG Rhythm: Sinus Conclusions: - The left ventricular systolic function is normal. The calculated ejection fraction is 63% by biplane method. - There is severe aortic valve stenosis. Possible underlying bicuspid aortic valve. - There is mild dilatation of the ascending aorta measuring 4.30 cm. Findings Left Ventricle Normal left ventricular cavity size. The left ventricular systolic function is normal. The calculated ejection fraction is 63% by biplane method. There is no evidence of regional wall motion abnormalities. Evidence suggests grade I (mild) diastolic dysfunction. There is mild septal asymmetric hypertrophy. Right Ventricle Normal right ventricular cavity size and systolic function. Atria Both atria are normal in size. Aortic Valve There is severe calcification of the aortic valve. There is severe aortic valve stenosis. The mean gradient is 32 mmHg. The aortic valve area is 0.69 cm2. Dimensionless index 0.24. Stroke volume index 37 mL/m2. Trace to mild aortic regurgitation. Left and right coronary cusps do appear fused and hence possibly bicuspid. Mitral Valve The mitral valve appears normal. There is no mitral valve regurgitation. There is no mitral valve stenosis. Pulmonic Valve The pulmonic valve is likely normal. Tricuspid Valve There is trace tricuspid valve regurgitation. There is no evidence of pulmonary hypertension. Great Vessels The aortic arch is normal in size. There is mild dilatation of the ascending aorta measuring 4.30 cm. Venous The inferior vena cava is normal in size and collapses greater than 50% with inspiration. Pericardium/Pleural There is no evidence of pericardial effusion. Prior Study Comparison Changes noted compared to prior study dated: 10/10/2023. Progression of aortic valve stenosis. Measurements 2D Linear Measurements IVSd: 1.17 0.6-0.9/0.6-1.0 cm LVIDd: 3.88 3.9-5.3/4.2-5.9 cm LVIDd Index: 2.57 2.4-3.2/2.2-3.1 cm/m2 LVIDs: 2.39 2.0-3.6 cm LVPWd: 0.73 0.7-1.1 cm LA Diam: 3.30 2.7-3.8/3.0-4.0 cm LAIDs Index: 2.19 1.5-2.3 cm/m2 LV Mass: 139.76 67-162/88-224 g LV Mass Index: 92.56 43-95/49-115 g/m2 LVOT Diam: 2.00 3.0+(-)1.3 cm 2D Systolic Function EF 4C: 66.20 >55% EF 2C: 58.90 >55% EF BiP: 63.30 >55% Mitral Valve MV Pk E: 0.60 MV PK A: 1.10 MV Decel Time: 401.00 E/A: 0.50 E'Lateral: 7.18 E'Medial: 5.11 E/E' Med: 11.70 E/E' Lat: 8.40 PHT: 118.00 MVA PHT: 1.86 Decel Kings: 1.49 Aortic Valve AoV Pk Georges: 3.52 AoV Mn Georges: 2.71 AoV VTI: 0.82 AoV Pk Grad: 50.00 Aov Mn Grad: 32.00 ZEN Cont.VTI: 0.69 AI Pk Georges: 4.23 AI Kings: 1.36 LVOT LVOT Pk Georges: 0.83 LVOT Mn Georges: 0.61 LVOT VTI: 0.18 LVOT Pk Grad: 3.00 LVOT Mn Grad: 2.00 LVOT Diam: 2.00 LVOT Area: 3.14 Diastolic Function MV Pk E: 0.60 MV Pk A: 1.10 E/A: 0.50 E'Medial: 5.11 E/E' Med: 11.70 E' Laterial: 7.18 E/E' Lat: 8.40 Right Ventricle TAPSE (mm): 20.00 TVS' Georges: 10.30 Tricuspid Valve TR Pk Georges: 2.33 TR Pk Grad: 22.00 Great Vessels Aorta Sinus of Valsalva: 3.30 2.0-3.5 cm Ao Asc: 4.30 2.1-3.4 cm Ao Arch: 3.10 Pulmonary Valve PV Pk Georges: 0.90 Peak PV Grad: 3.00 Updated in Other Vendor System with Status of Final Arden Lane MD electronically signed on 09/29/2024 1:27:58 PM with status of Final
--- OUTSIDE RECORDS SUMMARY | 2024-09-28 12:26 | XMS_ITS | Patient Health Record ---
Author Organization [facility]. Address [address] [id number] Care Team Providers Care Store Shopper Name Role Phone Harinder Saldivar Primary Care Provider Allergies Allergen (clinical drug ingredient) Drug/Non Drug Allergy documented on EMR Reaction Allergy Type Onset Date Status Pain medications/Opioid s (uncoded) Vomitting Allergy Active varenicline Chantix Rash in [place] Drug Allergy Active Results Component Value Reference Range Notes DEXA Hip and Spine Reviewed date:06/08/2024 05:23:05 AM Interpretation:Osteopenia Multiple sites Performing Lab: Notes/Report: Osteopenia Multiple sites Lipid Panel Reviewed date:06/08/2024 05:21:29 AM Interpretation:Abnormal Performing Lab:[facility] [place], [place], [id number] Rick Harvey MD Notes/Report: Received Date: [id number] FASTING:YES FASTING: YES CHOLESTEROL, TOTAL 246 <200 [...] LDL-C. Lex SS et al. FARIDA. 2013;310(19): 0281-8209 (http://education.[employer]/faq/WVA782) CHOL/HDLC RATIO 3.8 <5.0 (calc) NON HDL CHOLESTEROL 181 <130 mg/dL (calc) For patients with diabetes plus 1 major ASCVD risk factor, treating to a non-HDL-C goal of <100 mg/dL (LDL-C of <70 mg/dL) is considered a therapeutic option. CMP Reviewed date:06/08/2024 05:21:29 AM Interpretation:Normal Performing Lab:[facility], [facility], [address] [place] [place], [place], [id number] Rick Harvey MD Notes/Report: Received Date: FASTING:YES FASTING: YES GLUCOSE 86 65-99 mg/dL [...] Reviewed date:06/08/2024 05:21:29 AM Interpretation:Normal Performing Lab:[facility], [facility], [address], [place], [place], [address] Rick Harvey MD Notes/Report: Received [...] MPV 9.1 7.5-12.5 fL ABSOLUTE NEUTROPHILS 4948 1486-8650 cells/uL ABSOLUTE LYMPHOCYTES 4843 759-3654 cells/uL ABSOLUTE MONOCYTES 600 200-950 cells/uL ABSOLUTE EOSINOPHILS 220 15-500 cells/uL ABSOLUTE BASOPHILS 38 0-200 cells/uL NEUTROPHILS 65.1 LYMPHOCYTES 23.6 MONOCYTES 7.9 EOSINOPHILS 2.9 BASOPHILS 0.5 URINALYSIS, COMPLETE Reviewed date:06/08/2024 05:21:29 AM Interpretation:Normal Performing Lab:[facility], [address], [place], [address] Rick Harvey MD Notes/Report: Received Date: FASTING:YES FASTING: YES COLOR YELLOW YELLOW APPEARANCE [...] elements. Only those elements seen were reported. URINALYSIS, COMPLETE W/REFLE X TO CULTURE Reviewed date:05/14/2024 08:01:49 AM Interpretation: Performing Lab:[facility] [place], [place], [address] Rick Harvey MD Notes/Report: Received [...] elements. Only those elements seen were reported. REFLEXIVE URINE CULTURE Reviewed date:05/14/2024 08:01:35 AM Interpretation: Performing Lab[facility] [place], [place], [address] Rick Harvey MD Notes/Report: Received Date: FASTING:NO FASTING: NO REFLEXIVE URINE CULTURE NO C ULTURE INDICATED Reason For Referral No Information Medications Medication SIG (Take, Route, Frequency, Duration) Notes Start Date End Date Status Triamcinolone Acetonide 0.1 % 1 application Externally QD Active Ipratropium-Albuterol 0.5-2.5 (3) MG/3ML 3 mL as needed Inhalation every 6 hrs; Duration: 100 days Active Bactrim DS 800-160 MG 1 tablet Orally tw ice a day; Duration: 10 days 05/13/2024 Not-Takin g Vitamin D3 50 MCG (2000 UT) 1 tablet Orally Once a day 06/10/2024 Active Budesonide-Formoterol Fumarate 160-4.5 MCG/ACT 2 puffs Inhalation Q12hrs 03/26/2024 Active Losartan Potassium 50 MG 1/2 tablet Oral ly Once a day; Duration: 100 days Active Vitamin D3 Complete Active Ventolin HFA 108 (90 Base) MCG/ACT 1 puff as needed Inhalation every 4 hrs; Duration: 30 days Active Calcium 600 MG 1 tablet with meals Orally Twice a day Active Aspirin 81 MG 1 capsule Orally Onc e a day; Duration: 30 day(s) Active Ezetimibe 10 MG 1 tablet Orally Once a day; Duration: 90 days Active Social History Tobacco Use: Social History [...] Problem Status W/U Status Risk Notes Problem Colon cancer screening (029723331) Colon cancer screening (Z12.11) Active confirmed Problem Screening for osteoporosis (598022762) Screening for osteoporosis (Z13.820) Active confirmed Problem Harmful pattern of use of tobacco (disorder) (8843150811) Personal history of tobacco use, presenting hazards to health (Z87.891) Active confirmed Problem Drug-induced myopathy (129601649) 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) Active confirmed Problem Simple chronic bronchitis (87537109) Simple chronic bronchitis (J41.0) Active confirmed Problem Lipid-lowering drug adverse reaction (disorder) (549505488) Adverse effect of antihyperlipidemic and antiarteriosclerotic drugs, initial encounter (T46.6X5A) Active confirmed Problem Essential hypertension (27284113) Essential hypertension (I10) Active confirmed Problem Mixed hyperlipidemia (444937860) Mixed hyperlipidemia (E78.2) Active confirmed Problem Atopic dermatitis (55282107) Atopic dermatitis and related condition (L20.9) Active confirmed Problem Atherosclerosis of coronary artery without angina pectoris (957814078304530) Atherosclerosis of [place] coronary artery of [place] heart without angina pectoris (I25.10) Active confirmed Problem Nicotine dependence (63227719) Cigarette nicotine dependence with other nicotine-induced disorder (F17.218) Active confirmed Problem COPD - Chronic obstructive pulmonary disease (72836574) Chronic obstructive pulmonary disease, unspecified COPD type (J44.9) Active confirmed Problem Aortic stenosis, non-rheumatic (466665052) Nonrheumatic aortic valve stenosis (I35.0) Active confirmed Problem Screening mammography (76069645) Screening mammogram for breast cancer (Z12.31) Active confirmed Problem Screening for malignant neoplasm of lung (procedure) (265496433) Screening for lung cancer (Z12.2) Active confirmed Problem Aneurysm of ascending aorta (disorder) (680348203) Aneurysm of ascending aorta without rupture (I71.21) Active confirmed Vital Signs Heart Rate 67 /min 06/08/2024 Blood pressure diastolic 74 mm Hg 06/08/2024 Height 59 in 06/08/2024 Blood pressure systolic 120 mm Hg 06/08/2024 Weight 128 lbs 06/08/2024 BMI 25.85 kg/m2 06/08/2024 Encounters Encounter Location Date Provider Diagnosis [facility], [address] [id number] 03/26/2024 Harinder Saldivar [facility], [address] [id number] 04/19/2024 Harinder Saldivar [facility], [address] [id number] 05/13/2024 Harinder Saldivar UTI symptoms R39.9 [facility], [address] [id number] 05/14/2024 Harinder Saldivar [facility], [address] [id number] 06/10/2024 Harinder Saldivar [facility], [address] [id number] 03/30/2024 Harinder Saldivar Essential hypertensi on I10 ; Atherosclerosis of [place] coronary artery of [place] heart without angina pectoris I25.10 ; Chronic obstructive pulmonary disease, unspecified COPD [...] antihyperlipidemic and antiarteriosclerotic drugs, initial encounter T46.6X5A [facility], [address] [id number] 06/08/2024 Harinder Saldivar Essential hypertensi on I10 ; Atherosclerosis of [place] coronary artery of [place] heart without angina pectoris I25.10 ; Chronic obstructive pulmonary disease, unspecified COPD type J44.9 ; Personal history of tobacco use, presenting hazards to health Z87.891 ; Atopic dermatitis and related condition L20.9 ; Nonrheumatic aortic valve stenosis I35.0 ; Mixed hyperlipidemia E78.2 ; Aneurysm of ascending aorta without rupture I71.21 ; Drug-induced myopathy G72.0 and Adverse effect of antihyperlipidemic and antiarteriosclerotic drugs, initial encounter T46.6X5A Assessments Encounter Date Diagnosis (ICD Code) Assessment Notes Treatment Notes Treatment Clinical Notes Section Notes 06/08/2024 Essential hypertensi on (ICD-10 - I10) Non Pharmacological Treatment of Hypertension : DASH [ Dietary Approaches to Stop Hypertension]: Diet high in Fruits & Vegetable. Low Fat/No Fat Dairy Products. Whole Grains. Paultry & Fatty Fish eg [place], Sardines etc. Nuts- Walnuts, Almonds, Hazelnuts. Low [...] Obesity. 6. Regular Ecercise. 06/08/2024 Atherosclerosis of [place] coronary artery of [place] heart without angina pectoris (ICD-10 - I25.10) Life Style Management: Mediterranean Diet Diet- Avoid Red Meat-Like Beef, Pork, Liver. Rec. White meat-Like Poultry, Fish- [place], Sardines, Mackerel. Avoid Saturated Fats-Processed foods. Rec. Monounsaturated Fats- [place] Oil, Canola oil. Rec. Polyunsaturated Fats [place] 3 Fatty Acid. Avoid Sweets & Sweetened Beverages. Rec. Whole Grains, Beans, Legumes etc. Rec. Nuts-Walnuts, Almonds, [place] nuts. Rec. Fruits & Vegetables. Rec. High Fiber Diet. Regular Exercise- 30 minutes walk 5 times a week. 05/13/2024 UTI symptoms (ICD-10 - R39.9) 03/30/2024 Essential hypertensi on (ICD-10 - I10) Non Pharmacological Treatment of Hypertension : DASH [ Dietary Approaches to Stop Hypertension]: Diet high in Fruits & Vegetable. Low Fat/No Fat Dairy Products. Whole Grains. Paultry & Fatty Fish eg [place], Sardines etc. Nuts- Walnuts, Almonds, Hazelnuts. Low in Sweets & sweetened beverages & red meat. Low salt- 2.4 gm/day. Regular Exercise- 30 minutes walk 5 time a week. Weight Loss. Reduce Alcohol intake. 1. Control of Hypertension. 2. Control of Hyperlipidemia with LDL- Cholesterol at goal. 3. Control of Diabetes Mellitus/ Pre-Diabetes. 4. Smoking cessation 5. Treatment of Obesity. 6. Regular Ecercise. 03/30/2024 Atherosclerosis of [place] coronary artery of [place] heart without angina pectoris (ICD-10 - I25.10) 03/30/2024 Chronic obstructive pulmonary disease, unspecified COPD type (ICD-10 - J44.9) Smoking cessation. Prevention of respiratory tract infection. Rec. Vaccine for Influenza every year Rec. Vaccines for Pneumonia- Prevnar-13 & Pneumovax- 24 Pulmonary Rehabilatation. Incentive Spirometry Pulmonary Toilet- Mucinex. Regular Exercise. Breathing Exercise-Pursed lip breathing. Use Harmonica. 06/08/2024 Chronic obstructive pulmonary disease, unspecified COPD type (ICD-10 - J44.9) Smoking cessation. Prevention of respiratory tract infection. Rec. Vaccine for Influenza every year Rec. Vaccines for Pneumonia- Prevnar-13 & Pneumovax- 24 Pulmonary Rehabilatation. Incentive Spirometry Pulmonary Toilet- Mucinex. Regular Exercise. Breathing Exercise-Pursed lip breathing. Use Harmonica. 06/08/2024 Personal history of tobacco use, presenting hazards to health (ICD-10 - Z87.891) 03/30/2024 Personal history of tobacco use, presenting [...] 5. Avoid triggers and allergens. 6. Break mumm-Huuhcwe-adhz cycle. 7. For severe Cases- Dilute bleach bath 06/08/2024 Nonrheumatic aortic valve stenosis (ICD-10 - I35.0) 03/30/2024 Nonrheumatic aortic valve stenosis (ICD-10 - I35.0) 03/30/2024 Screening for lung cancer (ICD-10 - Z12.2) 06/08/2024 Mixed hyperlipidemia (ICD-10 - E78.2) 06/08/2024 Aneurysm of ascendin g aorta without [...] Details Provider Name:Harinder wei, 02/01/2025 12:00:00 PM, [address], [id number], Insurance Providers Payer Name Payer Address Payer Phone Subscriber Number Group Number Insured Name Patient Relationship to Insured Coverage Start Date Coverage End Date [employer] MCR ADV [address] [address] [place] [address] [id number] Hansa Mills Self - patient is the insured Medical (General) History Medical History History ICD Code Chronic Obstructive Pulmonary disease Aortic stenosis Surgical History Surgery Date(Month/Year) Tonsillectomy Tubal ligation 1975
--- OUTSIDE RECORDS SUMMARY | 2024-09-28 12:27 | XMS_ITS | Patient Health Record ---
[facility] Address [address] [place] [address] Care Team Providers Care Advertising Operations Manager Name Role Phone Garrett Danish Janet [phone] Reason For Referral No Information Plan Of Treatment No Information
== END ==
LOC: HO.CARD 11:18
PROVIDERS: PCP Internal Medicine; Visit Provider Internal Medicine Cardiovascular Disease
DX: I35.0 Nonrheumatic aortic (valve) stenosis (principal)
CPT/HCPCS: 93306

== ENCOUNTER → 2024-09-28 11:20 | Outpatient (BNV) | payer MEDICARE, SELFPAY | PROVIDERS: PCP Internal Medicine; Visit Provider Internal Medicine | DX: I35.0 Nonrheumatic aortic (valve) stenosis (principal) | CPT/HCPCS: 93306 ==

== ENCOUNTER 2024-10-11 16:14 | Outpatient (REF) | payer MEDICARE, SELFPAY ==
--- NOTE | ~2024-10-11 | CT_ITS ---
EXAMINATION: CT CHEST WITHOUT CONTRAST CLINICAL INFORMATION: Multiple pulmonary nodules COMPARISON: CT chest without contrast 2023. TECHNIQUE: Multidetector volumetric CT imaging of the chest was done. Axial MIP volume rendering provided. Sagittal and coronal reformatted images were obtained. This CT examination was performed using dose optimization techniques as appropriate, variously including the following: *Automated exposure control *Adjustment of mA and/or kV according to patient size (this includes techniques or standardized protocols for targeted exams where dose is matched to indication/reason for exam; i.e. extremities or head) *Use of iterative reconstruction technique DLP: 112 mGy. FINDINGS: REAL ESTATE DEVELOPMENT MANAGER: Hyperinflated lungs. LUNGS: There is diffuse centrilobular emphysema without acute pneumonic process. There is a 2 mm nodule in the left upper lobe anterior segment image 25/6, previously measured 4 mm. A second nodule seen 2 slices inferior is not visualized at this time for minimal nodule is seen superior segment of left lower lobe adjacent to major fissure, new. 3 mm nodule right upper lobe axial image 49/6, previously measured 2 mm. There are punctate scattered lung nodules throughout both lungs which are stable. There is a focal thickening involving left major fissure inferiorly, new. MEDIASTINUM: Thyroid lobes is symmetrical and stable. The central airways widely patent. The ascending aorta measures 4.1 x 4.2 cm and atherosclerotic. Heart size is is normal. Aortic valvular calcification. CORONARY ARTERY CALCIFICATION: Mild coronary artery calcifications are present. PLEURA: There is no pleural effusion. No pleural mass or thickening. AXILLA: No lymphadenopathy. UPPER ABDOMEN: Visualized liver, spleen, pancreas and bilateral adrenal glands are unremarkable except for known punctate pancreatic calcifications.. OSSEOUS STRUCTURES: No aggressive lytic or sclerotic process seen. Mild ventral spondylosis mid dorsal spine. CT/CT chest wo IV con IMPRESSION: Waxing and Waning of pulmonary nodules. New 3 mm pulmonary nodule as described above. No acute consolidation. Recommend follow-up as per Fleischner guidelines. Fleischner guidelines were followed. Electronically signed by: Mariusz Callejas MD 10/12/2024 07:44 AM EDT
--- OUTSIDE RECORDS SUMMARY | 2024-10-11 18:03 | XMS_ITS | Patient Health Record ---
Author Organization [facility]. Address [address] [phone] Care Team Providers Care Aviation Medicine Specialist Name Role Phone Harinder Saldivar Primary Care Provider [phone] Allergies Allergen (clinical drug ingredient) Drug/Non Drug Allergy documented on EMR Reaction Allergy Type Onset Date Status Pain medications/Opioid s (uncoded) Vomitting Allergy Active varenicline Chantix Rash in [place] Drug Allergy Active Results Component Value Reference Range Notes REFLEXIVE URINE CULTURE Reviewed date:05/14/2024 08:01:35 AM Interpretation: Performing Lab[facility], [address] [place], [place], [address] Rick Harvey MD Notes/Report: Received Date: FASTING:NO FASTING: NO REFLEXIVE URINE CULTURE NO C ULTURE INDICATED URINALYSIS, COMPLETE W/REFLE X TO CULTURE Reviewed date:05/14/2024 08:01:49 AM Interpretation: Performing Lab:[facility], [facility], [address] [place], [place], [address] Rick Harvey MD Notes/Report: Received [...] those elements seen were reported. URINALYSIS, COMPLETE Reviewed date:06/08/2024 05:21:29 AM Interpretation:Normal Performing Lab:, [facility] [address] [place], [address] Rick Harvey MD Notes/Report: Received [...] elements. Only those elements seen were reported. CBC (INCLUDES DIFF/PLT) Reviewed date:06/08/2024 05:21:29 AM Interpretation:Normal Performing Lab:, [facility] [address] [place], [address] Rick Harvey MD Notes/Report: Received [...] MPV 9.1 7.5-12.5 fL ABSOLUTE NEUTROPHILS 4948 6159-0083 cells/uL ABSOLUTE LYMPHOCYTES 0166 924-7035 cells/uL ABSOLUTE MONOCYTES 600 200-950 cells/uL ABSOLUTE EOSINOPHILS 220 15-500 cells/uL ABSOLUTE BASOPHILS 38 0-200 cells/uL NEUTROPHILS 65.1 LYMPHOCYTES 23.6 MONOCYTES 7.9 EOSINOPHILS 2.9 BASOPHILS 0.5 CMP Reviewed date:06/08/2024 05:21:29 AM Interpretation:Normal Performing Lab:[facility], [facility], [address] [place], [place], [address] Rick Harvey MD Notes/Report: Received Date: FASTING:YES FASTING: YES GLUCOSE 86 65-99 mg/dL Fasting reference interval UREA NITROGEN (BUN) 14 7-25 mg/dL CREATININE 0.92 0.60-1.00 mg/dL EGFR 66 > OR = 60 mL/min/1.73m2 BUN/CREATININE RATIO SEE NOTE: - (calc) Not Reported: BUN and Creatinine are [...] 17 10-35 U/L ALT 13 6-29 U/L Lipid Panel Reviewed date:06/08/2024 05:21:29 AM Interpretation:Abnormal Performing Lab:[facility], [facility], [address] [place] [place], [place], [address] Rick Harvey MD Notes/Report: Received Date: [id number] FASTING:YES FASTING: YES CHOLESTEROL, TOTAL 246 <200 [...] equation in the estimation of LDL-C. Lex ROCHA et al. FARIDA. 2013;310(19): 5043-3611 (http://[employer]/faq/FKT395) CHOL/HDLC RATIO 3.8 <5.0 (calc) NON HDL CHOLESTEROL 181 <130 mg/dL (calc) For patients with diabetes plus 1 major ASCVD risk factor, treating to a non-HDL-C goal of <100 mg/dL (LDL-C of <70 mg/dL) is considered a therapeutic option. DEXA Hip and Spine Reviewed date:06/08/2024 05:23:05 AM Interpretation:Osteopenia Multiple sites Performing Lab: Notes/Report: Osteopenia Multiple sites Reason For Referral No Information Medications Medication [...] Status Risk Notes Problem Colon cancer screening (980120397) Colon cancer screening (Z12.11) Active confirmed Problem Screening for osteoporosis (526509827) Screening for osteoporosis (Z13.820) Active confirmed Problem Harmful pattern of use of tobacco (disorder) (2392284313) Personal history of tobacco use, presenting hazards to health (Z87.891) Active confirmed Problem Drug-induced myopathy (632608094) 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) Active confirmed Problem Simple chronic bronchitis (37741875) Simple chronic bronchitis (J41.0) Active confirmed Problem Lipid-lowering drug adverse reaction (disorder) (908232278) Adverse effect of antihyperlipidemic and antiarteriosclerotic drugs, initial encounter (T46.6X5A) Active confirmed Problem Essential hypertension (05220791) Essential hypertension (I10) Active confirmed Problem Mixed hyperlipidemia (212928016) Mixed hyperlipidemia (E78.2) Active confirmed Problem Atopic dermatitis (72647731) Atopic dermatitis and related condition (L20.9) Active confirmed Problem Atherosclerosis of coronary artery without angina pectoris (805527167841966) Atherosclerosis of [place] coronary artery of [place] heart without angina pectoris (I25.10) Active confirmed Problem Nicotine dependence (04155442) Cigarette nicotine dependence with other nicotine-induced disorder (F17.218) Active confirmed Problem COPD - Chronic obstructive pulmonary disease (07077641) Chronic obstructive pulmonary disease, unspecified COPD type (J44.9) Active confirmed Problem Aortic stenosis, non-rheumatic (398709961) Nonrheumatic aortic valve stenosis (I35.0) Active confirmed Problem Screening mammography (57773078) Screening mammogram for breast cancer (Z12.31) Active confirmed Problem Screening for malignant neoplasm of lung (procedure) (013106441) Screening for lung cancer (Z12.2) Active confirmed Problem Aneurysm of ascending aorta (disorder) (940541021) Aneurysm of ascending aorta without rupture (I71.21) Active confirmed Vital Signs Heart Rate 67 /min 06/08/2024 Blood pressure diastolic 74 mm Hg 06/08/2024 Height 59 in 06/08/2024 Blood pressure systolic 120 mm Hg 06/08/2024 Weight 128 lbs 06/08/2024 BMI 25.85 kg/m2 06/08/2024 Encounters Encounter Location Date Provider Diagnosis [facility], [address] [id number] 03/26/[address] [facility], [address] [id number] 04/19/[address] [facility], [address] [id number] 05/13/2024 Harinder Saldivar UTI symptoms R39.9 [facility], [address] [id number] 05/14/[address] [facility], [address] [id number] 06/10/[address] [facility], [address] [id number] 03/30/2024 Harinder Saldivar Essential hypertensi on I10 ; Atherosclerosis of [place] coronary artery of [place] heart without angina pectoris I25.10 ; Chronic [...] antihyperlipidemic and antiarteriosclerotic drugs, initial encounter T46.6X5A [facility], [address] [id number] 06/08/2024 Harinder Saldivar Essential hypertensi on I10 ; Atherosclerosis of [place] coronary artery of [place] heart without angina pectoris I25.10 ; Chronic [...] Whole Grains. Paultry & Fatty Fish eg [place], Sardines etc. Nuts- Walnuts, Almonds, Hazelnuts. Low [...] Obesity. 6. Regular Ecercise. 06/08/2024 Atherosclerosis of [place] coronary artery of [place] heart without angina pectoris (ICD-10 - I25.10) Life Style Management: Mediterranean Diet Diet- Avoid Red Meat-Like Beef, Pork, Liver. Rec. White meat-Like Poultry, Fish- [place], Sardines, Mackerel. Avoid Saturated Fats-Processed foods. Rec. Monounsaturated Fats- [place] Oil, Canola oil. Rec. Polyunsaturated Fats [place] 3 Fatty Acid. Avoid Sweets & Sweetened [...] Whole Grains. Paultry & Fatty Fish eg [place], Sardines etc. Nuts- Walnuts, Almonds, Hazelnuts. Low [...] Obesity. 6. Regular Ecercise. 03/30/2024 Atherosclerosis of [place] coronary artery of [place] heart without angina pectoris (ICD-10 - I25.10) [...] 5. Avoid triggers and allergens. 6. Break puhe-Skophzb-ygjl cycle. 7. For severe Cases- Dilute bleach [...] Details Provider Name:Harinder wei, 02/01/2025 12:00:00 PM, [address], [id number], Insurance Providers Payer Name Payer Address Payer Phone Subscriber Number Group Number Insured Name Patient Relationship to Insured Coverage Start Date Coverage End Date [employer] MCR ADV [address] [address] [place] [address] [id number] Hansa Mills Self - patient is the insured Medical (General) History Medical History History ICD Code Chronic Obstructive Pulmonary disease Aortic stenosis Surgical History Surgery Date(Month/Year) Tonsillectomy Tubal ligation 1975
--- OUTSIDE RECORDS SUMMARY | 2024-10-11 18:03 | XMS_ITS | Patient Health Record ---
Author Organization [facility] Address [address] [place] [id number] Care Team Providers Care Oil [employer] Services Field Supervisor Name Role Phone Danish Garrett Janet [phone] Reason For Referral No Information Plan Of Treatment No Information
== END 2024-10-11 16:15 | disposition home or self-care (01) ==
LOC: HO.CT 16:14
PROVIDERS: PCP Internal Medicine; Visit Provider Nurse Practitioner Family
DX: R91.8 Other nonspecific abnormal finding of lung field (principal)
CPT/HCPCS: 71250

== ENCOUNTER → 2024-10-11 16:16 | Outpatient (BNV) | payer MEDICARE, SELFPAY | PROVIDERS: PCP Internal Medicine; Visit Provider Radiology Diagnostic Radiology | DX: R91.8 Other nonspecific abnormal finding of lung field (principal) | CPT/HCPCS: 71250 ==

== ENCOUNTER 2024-11-01 10:04 | Outpatient (AMB) | payer MEDICARE, SELFPAY ==
--- NOTE | 2024-11-01 10:08 | MHC.OFFVIS ---
Vital Signs 11/01/24 10:09 Height 5 ft 1 in Weight 127 lb 13.89 oz BMI 24.2 BP 122/68 Blood Pressure Location Lt brachial Position Sitting Pulse 62 Pulse Source Pulse Oximeter Pulse Oximetry (%) 96 Oxygen Delivery Method Room Air Intake Visit Reasons: COPD Allergies Wtqeevt-KGH-BbM Reductase Inhibitor Allergy (Mild, Verified 11/01/24 10:13) Muscle cramps barium sulfate Allergy (Unknown, Verified 11/01/24 10:13) delayed rash pain meds Adverse Reaction (Unknown, Uncoded 11/01/24 10:13) N/V HPI HPI COPD: Details: Hansa is a pleasant 74-year-old female, former 40 pack smoker quit in January 2024, with underlying moderate COPD, HTN and moderate aortic stenosis under the care of cardiology. She has been moderately controlled on Symbicort, albuterol MDI and DuoNeb PRN, Spiriva was added however reported sensation of burning chest with use so discontinued. She restarted Trelegy, able to tolerate and has had relatively good control of respiratory symptoms with use, infrequently requiring albuterol/DuoNeb. She continues to report intermittent dyspnea, minimal cough or wheezing. She denies any visits to urgent care or hospitalizations related to respiratory distress since the last visit. Today she presents to review chest CT results. [facility] Medical History Vitamin D deficiency Dyslipidemia Aortic stenosis Family History Father Substance use disorder Brother Substance use disorder CAD (coronary artery disease) Paternal Uncle Substance use disorder Social History Housing: House Patient Tobacco Use Status: Former Tobacco user Tobacco use type: Cigarette Cigarette Packs Per Day: 1 Years Smoked: 50 e-Cigarette/Vaping Use: Never Used Second Hand Smoke Exposure: Yes service: No Current occupational status: retired Cognitive needs: No Hearing needs: No Vision needs: No Review of Systems Const Denies chills, Denies excessive sweating, Denies fever(s), Denies headache(s) and Denies night sweats Eyes Denies dry eyes, Denies irritation and Denies itchy eyes ENT Reports Normal hearing present and Denies headache(s) Card Denies chest pain, Denies chest pain at rest, Denies chest pain with activity, Denies claudication, Denies leg edema, Reports dyspnea on exertion, Denies orthopnea and Denies paroxysmal nocturnal dyspnea Resp Denies change in phlegm color, Denies chest congestion, Reports cough, Denies hemoptysis, Denies excessive phlegm production, Denies pain on inspiration, Denies pain with cough, Reports dyspnea on exertion, Denies stridor and Reports wheezing Musc Denies myalgias Neuro Reports Normal hearing present and Denies headache(s) Endo Denies excessive sweating Manjit/Lymph Denies lymphadenopathy Aller/Immun Denies itchy eyes, Denies seasonal rhinorrhea and Reports wheezing Physical Exam Vital Signs: Last Vital Signs Pulse 62 11/01/24 10:09 BP 122/68 11/01/24 10:09 Pulse Ox 96 11/01/24 10:09 Oxygen Delivery Method Room Air 11/01/24 10:09 BMI result Body Mass Index 24.2 Const General: cooperative, healthy appearing, comfortable, no acute distress, well developed and alert Orientation/consciousness: patient oriented x3 Limitations: no limitations HEENT Head: Yes normal to inspection, Yes normocephalic and Yes atraumatic Ears: hearing grossly normal bilaterally and external ears normal Eyes General: appearance normal, both eyes and all related structures Eyelids: Yes eyelids normal Sclerae: sclerae normal EOM: EOMs intact bilaterally Neck Neck: Yes normal visual inspection and Yes no lymphadenopathy Lymphatic: no lymphadenopathy noted Chest Chest palpation & inspection: normal inspection of the chest Resp Effort & Inspection: normal respiratory effort, able to speak in complete sentences, no audible wheezes, no stridor, not tachypneic, no tripod positioning and no use of accessory muscles Auscultation: diminished lung sounds Cardio Jugular venous distension: no JVD Rate: regular rate Rhythm: regular rhythm Skin Other: warm, dry General skin exam: no rashes or lesions noted Neuro General: patient oriented x3 Cranial nerves: Yes Normal hearing present Cognition (Neuro): normal cognition Gait exam (Neuro): Normal gait present Extrem General: Yes normal to inspection, Yes capillary refill normal, Yes no clubbing, cyanosis or edema and Yes no pedal edema Psych Appearance: grossly normal and well kempt Speech and movement: Normal speech and movement present and Clear speech present Affect: normal affect Attitude: cooperative Thought process: Normal thought process present Thought content: Normal thought content present Insight: Good insight present (Psych) Judgement: Good judgement present (Psych) Results Reviewed Results Reviewed: [address] [address] [address] Scan Report Signed Patient: Hansa Mills MR#: [id number] : 1950 Acct:[id number] Age/Sex: 73 / F ADM Date: 10/11/24 Loc: HO.CT Attending Dr: Jennifer Wright NP Ordering Physician: Jennifer Wright NP Date of Service: 10/11/24 Procedure(s): CT chest wo IV con Accession Number(s): [id number] cc: Rupal Blue MD; Jennifer Wright NP~ Report Number: [id number]: Total DLP = 112.00 mGy-cm EXAMINATION: CT CHEST WITHOUT CONTRAST CLINICAL INFORMATION: Multiple pulmonary nodules COMPARISON: CT chest without contrast 2023. TECHNIQUE: Multidetector volumetric CT imaging of the chest was done. Axial MIP volume rendering provided. Sagittal and coronal reformatted images were obtained. This CT examination was performed using dose optimization techniques as appropriate, variously including the following: *Automated exposure control *Adjustment of mA and/or kV according to patient size (this includes techniques or standardized protocols for targeted exams where dose is matched to indication/reason for exam; i.e. extremities or head) *Use of iterative reconstruction technique DLP: 112 mGy. 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 LUNGS: There is diffuse centrilobular emphysema without acute pneumonic process. There is a 2 mm nodule in the left upper lobe anterior segment image 25/6, previously measured 4 mm. A second nodule seen 2 slices inferior is not visualized at this time for minimal nodule is seen superior segment of left lower lobe adjacent to major fissure, new. 3 mm nodule right upper lobe axial image 49/6, previously measured 2 mm. There are punctate scattered lung nodules throughout both lungs which are stable. There is a focal thickening involving left major fissure inferiorly, new. MEDIASTINUM: Thyroid lobes is symmetrical and stable. The central airways widely patent. The ascending aorta measures 4.1 x 4.2 cm and atherosclerotic. Heart size is is normal. Aortic valvular calcification. CORONARY ARTERY CALCIFICATION: Mild coronary artery calcifications are present. PLEURA: There is no pleural effusion. No pleural mass or thickening. AXILLA: No lymphadenopathy. UPPER ABDOMEN: Visualized liver, spleen, pancreas and bilateral adrenal glands are unremarkable except for known punctate pancreatic calcifications.. OSSEOUS STRUCTURES: No aggressive lytic or sclerotic process seen. Mild ventral spondylosis mid dorsal spine. CT/CT chest wo IV con IMPRESSION: Waxing and Waning of pulmonary nodules. New 3 mm pulmonary nodule as described above. No acute consolidation. Recommend follow-up as per Fleischner guidelines. Fleischner guidelines were followed. 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 Operator: MICHAEL Assessment & Plan Assessment & Plan (1) COPD (chronic obstructive pulmonary disease): Code(s): J44.9 - Chronic obstructive pulmonary disease, unspecified Category: Medical (2) Dyspnea: Code(s): R06.00 - Dyspnea, unspecified Category: Medical (3) Personal history of tobacco use: Code(s): Z87.891 - Personal history of nicotine dependence Category: Social Hx (4) Multiple pulmonary nodules: Code(s): R91.8 - Other nonspecific abnormal finding of lung field Category: Medical Plan Reviewed chest CT which reveals waxing and Waning of pulmonary nodules, with new 3 mm YULIANA pulmonary nodule. Will repeat in 6 months to assess stability, order previously placed. She did note that she will be in [place] until the Spring so will likely surpass the 6 month recommendation. At this time, she reports moderate control of respiratory symptoms on current regimen encouraged to continue. She is aware to call if symptoms change. All questions were answered and patient is in agreement of plan. Will follow up in 3-6 months or sooner if needed. Coding Level of Care Code Est Pt Level 4 (51075) Diagnoses COPD (chronic obstructive pulmonary disease) J44.9 Dyspnea R06.00 Personal history of tobacco use Z87.891 Multiple pulmonary nodules R91.8
[2024-11-01 10:09] VITALS: BP 122/68; PULSE 62; O2SAT 96; BMI 24.2
--- OUTSIDE RECORDS SUMMARY | 2024-11-01 12:38 | XMS_ITS | Patient Health Record ---
Author Organization [facility]. Address [address] [id number] Care Team Providers Care Utilization Management Manager Name Role Phone Harinder Saldiavr Primary Care Provider Allergies Allergen (clinical drug ingredient) Drug/Non Drug Allergy documented on EMR Reaction Allergy Type Onset Date Status Pain medications/Opioid s (uncoded) Vomitting Allergy Active varenicline Chantix Rash in [place] Drug Allergy Active Results Component Value Reference Range Notes URINALYSIS, COMPLETE W/REFLE X TO CULTURE Reviewed date:05/14/2024 08:01:49 AM Interpretation: Performing Lab:[facility] [address] [place], [address] Rick Harvey MD Notes/Report: FASTING: NO FASTING:NO Received Date: [id number] COLOR YELLOW YELLOW APPEARANCE CLEAR CLEAR SPECIFIC [...] CULTURE Reviewed date:05/14/2024 08:01:35 AM Interpretation: Performing [facility] [address] [place], [place], [id number] Rick Harvey MD Notes/Report: Received Date: [id number] FASTING:NO FASTING: NO REFLEXIVE URINE CULTURE NO C ULTURE INDICATED DEXA Hip and Spine Reviewed date:06/08/2024 05:23:05 AM Interpretation:Osteopenia Multiple sites Performing Lab: Notes/Report: Osteopenia Multiple sites URINALYSIS, COMPLETE Reviewed date:06/08/2024 05:21:29 AM Interpretation:Normal Performing Lab:[facility] [address] [place], [place], [id number] Rick Harvey MD Notes/Report: FASTING: YES FASTING:YES Received Date: [id number] COLOR YELLOW YELLOW APPEARANCE CLEAR CLEAR SPECIFIC [...] Panel Reviewed date:06/08/2024 05:21:29 AM Interpretation:Abnormal Performing [facility] [place], [place], [id number] Rick Harvey MD Notes/Report: Received Date: [id number] FASTING:YES FASTING: YES CHOLESTEROL, TOTAL 246 <200 mg/dL HDL CHOLESTEROL 65 > OR = 50 mg/dL TRIGLYCERIDES 126 <150 mg/dL LDL-CHOLESTEROL 156 Reference range: <100 Desirable range <100 mg/dL for primary prevention; <70 mg/dL for patients with CHD or diabetic patients with > or = 2 CHD risk factors. LDL-C is now calculated using the Lex-Collier calculation, which is a validated novel method providing better accuracy than the Friedewald equation in the estimation of LDL-C. Lex SS et al. FARIDA. 2013;310(59): 1913-9584 (http://Junko Tada.TigerTrade/faq/UCK018) CHOL/HDLC RATIO 3.8 <5.0 (calc) NON HDL CHOLESTEROL 181 <130 mg/dL (calc) For patients with diabetes plus 1 major ASCVD risk factor, treating to a non-HDL-C goal of <100 mg/dL (LDL-C of <70 mg/dL) is considered a therapeutic option. CMP Reviewed date:06/08/2024 05:21:29 AM Interpretation:Normal Performing Lab:[facility], [address] [place], [place], [address] Rick Harvey MD Notes/Report: Received [...] Reviewed date:06/08/2024 05:21:29 AM Interpretation:Normal Performing Lab:[facility], [facility], [address], [place], [place], [address] Rick Harvey MD Notes/Report: Received [...] MPV 9.1 7.5-12.5 fL ABSOLUTE NEUTROPHILS 4948 6827-6697 cells/uL ABSOLUTE LYMPHOCYTES 5917 260-0391 cells/uL ABSOLUTE MONOCYTES 600 200-950 cells/uL ABSOLUTE EOSINOPHILS 220 15-500 cells/uL ABSOLUTE BASOPHILS 38 0-200 cells/uL NEUTROPHILS 65.1 LYMPHOCYTES 23.6 MONOCYTES 7.9 EOSINOPHILS 2.9 BASOPHILS 0.5 Reason For Referral No Information Medications Medication SIG (Take, Route, Frequency, Duration) Notes Start Date End Date Status Triamcinolone Acetonide 0.1 % 1 application Externally QD Active Ipratropium-Albuterol 0.5-2.5 (3) MG/3ML 3 mL as needed Inhalation every 6 hrs; Duration: 100 days Active Bactrim DS 800-160 MG 1 tablet Orally tw ice a day; Duration: 10 days 05/13/2024 Not-Alivia g Vitamin D3 50 MCG (2000 UT) [...] Status Risk Notes Problem Colon cancer screening (164672117) Colon cancer screening (Z12.11) Active confirmed Problem Screening for osteoporosis (437253166) Screening for osteoporosis (Z13.820) Active confirmed Problem Harmful pattern of use of tobacco (disorder) (7868368989) Personal history of tobacco use, presenting hazards to health (Z87.891) Active confirmed Problem 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) Active confirmed Problem Simple chronic bronchitis (61674804) Simple chronic bronchitis (J41.0) Active confirmed Problem Lipid-lowering drug adverse reaction (disorder) (658958298) Adverse effect of antihyperlipidemic and antiarteriosclerotic drugs, initial encounter (T46.6X5A) Active confirmed Problem Essential hypertension (11472367) Essential hypertension (I10) Active confirmed Problem Mixed hyperlipidemia (525716047) Mixed hyperlipidemia (E78.2) Active confirmed Problem Atopic dermatitis (71331968) Atopic dermatitis and related condition (L20.9) Active confirmed Problem Atherosclerosis of coronary artery without angina pectoris (364671576189692) Atherosclerosis of [place] coronary artery of [place] heart without angina pectoris (I25.10) Active confirmed Problem Nicotine dependence (97280154) Cigarette nicotine dependence with other nicotine-induced disorder (F17.218) Active confirmed Problem COPD - Chronic obstructive pulmonary disease (17389926) Chronic obstructive pulmonary disease, unspecified COPD type (J44.9) Active confirmed Problem Aortic stenosis, non-rheumatic (421221442) Nonrheumatic aortic valve stenosis (I35.0) Active confirmed Problem Screening mammography (57883228) Screening mammogram for breast cancer (Z12.31) Active confirmed Problem Screening for malignant neoplasm of lung (procedure) (918443217) Screening for lung cancer (Z12.2) Active confirmed Problem Aneurysm of ascending aorta (disorder) (380441638) Aneurysm of ascending aorta without rupture (I71.21) Active confirmed Vital Signs Heart Rate 67 /min 06/08/2024 Blood pressure diastolic 74 mm Hg 06/08/2024 Height 59 in 06/08/2024 Blood pressure systolic 120 mm Hg 06/08/2024 Weight 128 lbs 06/08/2024 BMI 25.85 kg/m2 06/08/2024 Encounters Encounter Location Date Provider Diagnosis [address] [id number] 03/30/2024 Harinder Saldivar Essential hypertensi on I10 ; Atherosclerosis of [place] coronary artery of [place] heart without angina pectoris I25.10 ; Chronic [...] antihyperlipidemic and antiarteriosclerotic drugs, initial encounter T46.6X5A [facility], [address] [id number] 06/08/2024 Harinder Saldivar Essential hypertensi on I10 ; Atherosclerosis of [place] coronary artery of [place] heart without angina pectoris I25.10 ; Chronic [...] antihyperlipidemic and antiarteriosclerotic drugs, initial encounter T46.6X5A [facility], [address] [id number] 03/26/2024 Harinder Saldivar [place] [address] [id number] 04/19/2024 Harinder Saldivar [facility], [facility]. [address] [id number] 05/13/2024 Harinder Saldivar UTI symptoms R39.9 [facility], [facility] [address] [id number] 05/14/2024 Harinder Saldivar [facility], [facility] [address] [id number] 06/10/2024 Harinder Saldivar Assessments Encounter Date Diagnosis (ICD Code) Assessment Notes Treatment Notes Treatment Clinical Notes Section Notes 06/08/2024 Essential hypertensi on (ICD-10 - I10) Non Pharmacological Treatment of Hypertension : DASH [ Dietary Approaches to Stop Hypertension]: Diet high in Fruits & Vegetable. Low Fat/No Fat Dairy Products. Whole Grains. Paultry & Fatty Fish eg [place], Sardines etc. Nuts- Walnuts, Almonds, Hazelnuts. Low [...] Obesity. 6. Regular Ecercise. 06/08/2024 Atherosclerosis of [place] coronary artery of [place] heart without angina pectoris (ICD-10 - I25.10) Life Style Management: Mediterranean Diet Diet- Avoid Red Meat-Like Beef, Pork, Liver. Rec. White meat-Like Poultry, Fish- [place], Sardines, Mackerel. Avoid Saturated Fats-Processed foods. Rec. Monounsaturated Fats- [place] Oil, Canola oil. Rec. Polyunsaturated Fats [place] 3 Fatty Acid. Avoid Sweets & Sweetened Beverages. Rec. Whole Grains, Beans, Legumes etc. Rec. Nuts-Walnuts, Almonds, [place] nuts. Rec. Fruits & Vegetables. Rec. High Fiber Diet. Regular Exercise- 30 minutes walk 5 times a week. 05/13/2024 UTI symptoms (ICD-10 - R39.9) 03/30/2024 Atherosclerosis of [place] coronary artery of [place] heart without angina pectoris (ICD-10 - I25.10) 03/30/2024 Essential hypertensi on (ICD-10 - I10) Non Pharmacological Treatment of Hypertension : DASH [ Dietary Approaches to Stop Hypertension]: Diet high in Fruits & Vegetable. Low Fat/No Fat Dairy Products. Whole Grains. Paultry & Fatty Fish eg Paris, Sardines etc. Nuts- Walnuts, Almonds, Hazelnuts. Low in Sweets & sweetened beverages & red meat. Low salt- 2.4 gm/day. Regular Exercise- 30 minutes walk 5 time a week. Weight Loss. Reduce Alcohol intake. 1. Control of Hypertension. 2. Control of Hyperlipidemia with LDL- Cholesterol at goal. 3. Control of Diabetes Mellitus/ Pre-Diabetes. 4. Smoking cessation 5. Treatment of Obesity. 6. Regular Ecercise. 03/30/2024 Chronic obstructive pulmonary disease, unspecified COPD [...] hazards to health (ICD-10 - Z87.891) 06/08/2024 Atopic dermatitis an d related condition [...] 5. Avoid triggers and allergens. 6. Break erup-Gwckjzg-kbey cycle. 7. For severe Cases- Dilute bleach bath 03/30/2024 Atopic dermatitis an d related condition (ICD-10 - L20.9) 03/30/2024 Nonrheumatic aortic valve stenosis (ICD-10 - I35.0) 06/08/2024 Nonrheumatic aortic valve stenosis (ICD-10 - I35.0) 06/08/2024 Mixed hyperlipidemia (ICD-10 - E78.2) 03/30/2024 Screening for lung cancer (ICD-10 - Z12.2) 03/30/2024 Screening mammogram for breast cancer (ICD-10 - Z12.31) 06/08/2024 Aneurysm of ascendin g aorta without rupture (ICD-10 - I71.21) Smoking Cessation Control of HTN,Lipids & Diabetes Mellitus Monitor Size of Aneurysm by Ultrasound/ CTA or MRA Monitor for symptoms for Rupture aneurysm like abdominal pain, back pain etc Cardiology/ Surgical Consultation 06/08/2024 Drug-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 - G72.0) 03/30/2024 Screening for osteoporosis (ICD-10 - Z13.820) 06/08/2024 Adverse effect of antihyperlipidemic and antiarteriosclerotic drugs, initial encounter (ICD-10 - T46.6X5A) 03/30/2024 Colon cancer screeni ng (ICD-10 - Z12.11) 03/30/2024 Drug-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 - G72.0) 03/30/2024 Adverse effect of antihyperlipidemic and antiarteriosclerotic drugs, initial encounter (ICD-10 - T46.6X5A) Plan Of Treatment Next Appt Details Provider Name:Harinder wei, 02/01/2025 12:00:00 PM, [address], [phone], Insurance Providers Payer Name Payer Address Payer Phone Subscriber Number Group Number Insured Name Patient Relationship to Insured Coverage Start Date Coverage End Date [employer] MCR ADV [address] [address] [place] [address] [phone] [id number] Hansa Mills Self - patient is the insured Medical (General) History Medical History History ICD Code Chronic Obstructive Pulmonary disease Aortic stenosis Surgical History Surgery Date(Month/Year) Tonsillectomy Tubal ligation 1975
--- OUTSIDE RECORDS SUMMARY | 2024-11-01 12:38 | XMS_ITS | Patient Health Record ---
Author Organization [facility] Address [address] [place] [id number] Care Team Providers Care Water Ski Assembler Name Role Phone Garrett Danish Janet [phone] Reason For Referral No Information Plan Of Treatment No Information
== END 2024-11-01 10:31 | disposition home or self-care (01) ==
LOC: HO.HPS 10:04
PROVIDERS: PCP Internal Medicine; Visit Provider Nurse Practitioner Family
DX: J44.9 Chronic obstructive pulmonary disease, unspecified (principal); R06.00 Dyspnea, unspecified; Z87.891 Personal history of nicotine dependence; R91.8 Other nonspecific abnormal finding of lung field
CPT/HCPCS: 99214

== ENCOUNTER → 2024-11-01 10:04 | Outpatient (BNVA) | payer MEDICARE, SELFPAY | PROVIDERS: PCP Internal Medicine; Visit Provider Nurse Practitioner Family | DX: J44.9 Chronic obstructive pulmonary disease, unspecified (principal); R06.00 Dyspnea, unspecified; Z87.891 Personal history of nicotine dependence; R91.8 Other nonspecific abnormal finding of lung field | CPT/HCPCS: 99212 ==

== ENCOUNTER 2024-11-02 12:47 | Outpatient (AMB) | payer MEDICARE, SELFPAY ==
--- NOTE | 2024-11-02 12:50 | A.OFFVIS_ITS ---
Vital Signs 11/02/24 12:51 Height 5 ft 1 in Weight 127 lb 13.89 oz BMI 24.2 BP 140/72 H Blood Pressure Location Lt brachial Position Sitting Pulse 70 Intake Visit Reasons: 4 mth s/p echo Intake Note: 4 month follow-up feeling good Senior Data Developer Required: No Allergies Ugmwlwz-GCI-DfX Reductase Inhibitor Allergy (Mild, Verified 11/01/24 10:13) Muscle cramps barium sulfate Allergy (Unknown, Verified 11/01/24 10:13) delayed rash pain meds Adverse Reaction (Unknown, Uncoded 11/01/24 10:13) N/V Medication List - Last Reconciled 11/02/24 by Tobias Flores MD albuterol sulfate 90 mcg/actuation (Ventolin HFA) 1 puff PO QID PRN aspirin (Ecotrin Low Strength) 81 mg PO DAILY ezetimibe (Zetia) 10 mg PO DAILY ioacohmxrhp-mwdykmvec-vzarbaqq 200-62.5-25 mcg (Trelegy Ellipta) 1 inh inhalation DAILY ipratropium-albuterol 0.5 mg-3 mg(2.5 mg base)/3 mL 3 mL inhalation Q6H PRN losartan 50 mg PO DAILY HPI Comments Details: Hansa comes for follow-up after recent echocardiogram which shows severe aortic stenosis with paradoxical low-flow severe aortic stenosis with dimensionless index of 0.24 with mean gradient of 34 mm Hg. She comes for follo w-up of the results. She denies any new symptoms. Continues to have exertional shortness of breath if she is carrying a basket of laundry 2 flights of stairs but not worsened. Denies any exertional chest pain. No lightheadedness, syncope. Denies any palpitations. [facility] Medical History Vitamin D deficiency Dyslipidemia Aortic stenosis Family History Father Substance use disorder Brother Substance use disorder CAD (coronary artery disease) Paternal Uncle Substance use disorder Social History Housing: House Patient Tobacco Use Status: Former Tobacco user Tobacco use type: Cigarette Cigarette Packs Per Day: 1 Years Smoked: 50 e-Cigarette/Vaping Use: Never Used Second Hand Smoke Exposure: Yes service: No Current occupational status: retired Cognitive needs: No Hearing needs: No Vision needs: No Review of Systems Const Denies chills, Denies fatigue, Denies fever(s), Denies frequent falls, Denies weakness, Denies weight gain and Denies weight loss ENT Denies dizziness Card Denies chest pain, Denies leg edema, Denies lightheadedness, Denies palpitations, Denies dyspnea, Denies dyspnea on exertion, Denies orthopnea and Denies other (loss of consciousness) Resp Denies cough, Denies dyspnea and Denies dyspnea on exertion GI Denies hematochezia and Denies change in stool character Musc Denies abnormal gait, Denies muscle weakness, Denies numbness, Denies radiating pain into limb and Denies tingling Neuro Denies Abnormal speech present, Denies abnormal gait, Denies dizziness, Denies frequent falls, Denies numbness, Denies tingling and Denies weakness Endo Denies fatigue and Denies palpitations Physical Exam Vital Signs: Last Vital Signs Pulse 70 11/02/24 12:51 BP 140/72 H 11/02/24 12:51 BMI result Body Mass Index 24.2 Const General: cooperative, comfortable, no acute distress, alert, awake and Physically active Nutritional Appearance: thin Orientation/consciousness: patient oriented x3 Limitations: no limitations HEENT Head: Yes normocephalic and Yes atraumatic Neck Neck: Yes trachea midline, Yes supple and Yes no JVD Carotids: normal carotid upstroke Resp Effort & Inspection: normal respiratory effort Auscultation: clear to auscultation bilaterally and diminished lung sounds Cardio Jugular venous distension: no JVD Palpation: normal PMI Rate: regular rate Rhythm: regular rhythm Heart sounds: S1 normal heart sound present, S2 normal heart sound present, no click, no gallops and Murmur heart sound present systolic late, decrescendo and crescendo GI Auscultation: normal bowel sounds Skin General skin exam: no rashes or lesions noted Neuro General: patient oriented x3 and no focal motor deficits Speech: No Abnormal speech present Extrem General: Yes no clubbing, cyanosis or edema Psych Appearance: grossly normal Assessment & Plan Assessment & Plan (1) Aortic stenosis: Code(s): I35.0 - Nonrheumatic aortic (valve) stenosis Category: Medical Plan: Aortic stenosis which is severe by echo criteria with mean gradient of 34 mm Hg. Could have bicuspid aortic valve unclear by echocardiographic findings. She does not have any worsening symptoms at this point time but has underlying COPD but has exertional shortness of breath which is stable for few years. No heart failure symptoms. No anginal symptoms. Would suggest a treadmill stress test to evaluate for hemodynamic significance of aortic stenosis which may then require evaluation for valve replacement with consideration for TAVR. This was discussed with her. For now continue low-dose aspirin therapy. Continue aggressive blood pressure control which is currently well optimized. Continue lipid management goal LDL less than 100 mg/dL. Will follow with her in 6 months, sooner PRN Orders: Orders CA stress test Today I35.0 - Nonrheumatic aortic (valve) stenosis Coding Level of Care Code Est Pt Level 4 (58756) Complex EM visit Add On G2211 Diagnoses Aortic stenosis I35.0
[2024-11-02 12:51] VITALS: BP 140/72; PULSE 70; BMI 24.2
--- OUTSIDE RECORDS SUMMARY | 2024-11-02 16:44 | XMS_ITS | Patient Health Record ---
Author Organization [facility]. Address [address] [id number] Care Team Providers Care Customer Service Sales Consultant Name Role Phone Harinder Saldivar Primary Care [...] date:06/08/2024 05:21:29 AM Interpretation:Normal Performing Lab:[facility] [address] [place], [address] Rick Harvey MD Notes/Report: Received Date: [id number] FASTING:YES FASTING: YES COLOR YELLOW YELLOW APPEARANCE [...] Reviewed date:06/08/2024 05:21:29 AM Interpretation:Abnormal Performing Lab[facility] [place], [address] Rick Harvey MD Notes/Report: Received [...] LDL-C. Lex SS et al. FARIDA. 2013;310(19): 3671-4321 (http://education.[employer]/faq/EBI705) CHOL/HDLC RATIO 3.8 <5.0 (calc) NON HDL CHOLESTEROL 181 <130 mg/dL (calc) For patients with diabetes plus 1 major ASCVD risk factor, treating to a non-HDL-C goal of <100 mg/dL (LDL-C of <70 mg/dL) is considered a therapeutic option. CMP Reviewed date:06/08/2024 05:21:29 AM Interpretation:Normal Performing [facility] [place], [address] Rick Harvey MD Notes/Report: Received Date: [id number] FASTING:YES FASTING: YES GLUCOSE 86 65-99 mg/dL [...] Reviewed date:06/08/2024 05:21:29 AM Interpretation:Normal Performing Lab:[facility], [facility] [place], [address] Rick Harvey MD Notes/Report: Received Date: [...] MPV 9.1 7.5-12.5 fL ABSOLUTE NEUTROPHILS 4948 3406-4392 cells/uL ABSOLUTE LYMPHOCYTES 0885 909-9940 cells/uL ABSOLUTE MONOCYTES 600 200-950 cells/uL ABSOLUTE EOSINOPHILS 220 15-500 cells/uL ABSOLUTE BASOPHILS 38 0-200 cells/uL NEUTROPHILS 65.1 LYMPHOCYTES 23.6 MONOCYTES 7.9 EOSINOPHILS 2.9 BASOPHILS 0.5 REFLEXIVE URINE CULTURE Reviewed date:05/14/2024 08:01:35 AM Interpretation: Performing Lab:[facility], [facility], [address] [place], [place], [address] Rick Harvey MD Notes/Report: Received Date: FASTING:NO FASTING: NO REFLEXIVE URINE CULTURE NO C ULTURE INDICATED URINALYSIS, COMPLETE W/REFLE X TO CULTURE Reviewed date:05/14/2024 08:01:49 AM Interpretation: Performing Lab:[facility], 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) Active confirmed Problem Simple chronic bronchitis (54781297) Simple chronic bronchitis (J41.0) Active confirmed Problem Lipid-lowering drug adverse reaction (disorder) (578737591) Adverse effect of antihyperlipidemic and antiarteriosclerotic drugs, initial encounter (T46.6X5A) Active confirmed Problem Essential hypertension (81975305) Essential hypertension (I10) Active confirmed Problem Mixed hyperlipidemia (161115097) Mixed hyperlipidemia (E78.2) Active confirmed Problem Atopic dermatitis (10698333) Atopic dermatitis and related condition (L20.9) Active confirmed Problem Atherosclerosis of coronary artery without angina pectoris (068435502743804) Atherosclerosis of [place] coronary artery of [place] heart without angina pectoris (I25.10) Active confirmed Problem Nicotine dependence (26955356) Cigarette nicotine dependence with other nicotine-induced disorder (F17.218) Active confirmed Problem COPD - Chronic obstructive pulmonary disease (93544479) Chronic obstructive pulmonary disease, unspecified COPD type (J44.9) Active confirmed Problem Aortic stenosis, non-rheumatic (305867542) Nonrheumatic aortic valve stenosis (I35.0) Active confirmed Problem Screening mammography (78680259) Screening mammogram for breast cancer (Z12.31) Active confirmed Problem Screening for malignant neoplasm of lung (procedure) (697981374) Screening for lung cancer (Z12.2) Active confirmed Problem Aneurysm of ascending aorta (disorder) (758526501) Aneurysm of ascending aorta without rupture (I71.21) Active confirmed Vital Signs Heart Rate 67 /min 06/08/2024 Blood pressure diastolic 74 mm Hg 06/08/2024 Height 59 in 06/08/2024 Blood pressure systolic 120 mm Hg 06/08/2024 Weight 128 lbs 06/08/2024 BMI 25.85 kg/m2 06/08/2024 Encounters Encounter Location Date Provider Diagnosis [address] [id number] 03/30/2024 Harinder Saldivar Atherosclerosis of n ative coronary artery of sh[place]ann[place] heart without angina pectoris I25.10 ; Essential [...] antihyperlipidemic and antiarteriosclerotic drugs, initial encounter T46.6X5A [address] [id number] 06/08/2024 Harinder Saldivar Atherosclerosis of n ative coronary artery of [place] heart without angina pectoris I25.10 ; Essential [...] antihyperlipidemic and antiarteriosclerotic drugs, initial encounter T46.6X5A [address] [id number] 03/26/2024 Harinder Saldivar [address] [place], [place] [phone] 04/19/2024 Harinder Saldivar [facility], [facility]. [address] [id number] 05/13/2024 Harinder Saldivar UTI symptoms R39.9 [facility], [facility]. [address] [id number] 05/14/2024 Harinder Saldivar [facility], [facility]. [address] [id number] 06/10/2024 Harinder Saldivar Assessments Encounter Date Diagnosis (ICD Code) Assessment Notes Treatment Notes Treatment Clinical Notes Section Notes 03/30/2024 Atherosclerosis of [place] coronary artery of shosh[place]ann[place] heart without angina pectoris (ICD-10 - I25.10) 05/13/2024 UTI symptoms (ICD-10 - R39.9) 03/30/2024 Essential hypertensi on (ICD-10 - I10) Non Pharmacological Treatment of Hypertension : DASH [ Dietary Approaches to Stop Hypertension]: Diet high in Fruits & Vegetable. Low Fat/No Fat Dairy Products. Whole Grains. Paultry & Fatty Fish eg [place], Sardines etc. Nuts- Walnuts, Almonds, Hazelnuts. Low [...] Whole Grains. Paultry & Fatty Fish eg [place], Sardines etc. Nuts- Walnuts, Almonds, Hazelnuts. Low [...] Obesity. 6. Regular Ecercise. 06/08/2024 Atherosclerosis of [place] coronary artery of sh[place]bann[place] heart without angina pectoris (ICD-10 - I25.10) Life Style Management: Mediterranean Diet Diet- Avoid Red Meat-Like Beef, Pork, Liver. Rec. White meat-Like Poultry, Fish- [place], Sardines, Mackerel. Avoid Saturated Fats-Processed foods. Rec. Monounsaturated Fats- [place] Oil, Canola oil. Rec. Polyunsaturated Fats [place] 3 Fatty Acid. Avoid Sweets & Sweetened [...] 5. Avoid triggers and allergens. 6. Break cjgq-Egbvgqu-udbf cycle. 7. For severe Cases- Dilute bleach [...] Details Provider Name:Harinder wei, 02/01/2025 12:00:00 PM, [address], [id number], Insurance Providers Payer Name Payer Address Payer Phone Subscriber Number Group Number Insured Name Patient Relationship to Insured Coverage Start Date Coverage End Date [employer]NA [facility] ADV [address] [address] [place] [address] [id number] Hansa Mills Self - patient is the insured Medical (General) History Medical History History ICD Code Chronic Obstructive Pulmonary disease Aortic stenosis Surgical History Surgery Date(Month/Year) Tonsillectomy Tubal ligation 1975
--- OUTSIDE RECORDS SUMMARY | 2024-11-02 16:45 | XMS_ITS | Patient Health Record ---
Author Organization [facility] Address [address] [place] [address] Care Team Providers Care Adjusto Writer Operator Name Role Phone Garrett Danish Janet [phone] Reason For Referral No Information Plan Of Treatment No Information
== END 2024-11-02 13:08 | disposition home or self-care (01) ==
LOC: HO.HCS 12:49
PROVIDERS: PCP Internal Medicine; Visit Provider Internal Medicine Cardiovascular Disease
DX: I35.0 Nonrheumatic aortic (valve) stenosis (principal)
CPT/HCPCS: 99214; G2211

== ENCOUNTER → 2024-11-02 12:47 | Outpatient (BNVA) | payer MEDICARE, SELFPAY | PROVIDERS: PCP Internal Medicine; Visit Provider Internal Medicine Cardiovascular Disease | DX: Z71.2 Person consulting for explanation of examination or test findings (principal); I35.0 Nonrheumatic aortic (valve) stenosis | CPT/HCPCS: 99212 ==

== ENCOUNTER 2025-02-09 13:13 | Outpatient (AMB) | payer MEDICARE, SELFPAY ==
--- OUTSIDE RECORDS SUMMARY | 2025-02-01 07:00 | XMS_ITS ---
Author Organization [facility]. Address [address] [phone] Care Team Providers Care Mysql Database Administrator Name Role Phone Harinder Saldivar Primary Care Provider [phone] REASON FOR VISIT follow up Encounters Encounter Location Date Provider Diagnosis [facility], [facility]. [address] [id number] 02/01/2025 Harinder Saldivar Plan Of Treatment No Information Progress Notes * Hansa MILLSDOB:1950 (74 yo F)Acc No.[id number]:02/01/2025 Progress Notes Patient: Hansa CLEMENTS Appointment Provider: Mikayla Saldivar M.D. :1950 A ge:74 Y S ex:Female Date:02/01/2025 Address:[address] [place] [address], [facility] Subjective: * Chief Complaints: * 1 . Follow up. * Medical History: Objective: * Vitals: Assessment: Plan: * Treatment: * Images: * Electronic signature of Alvin Saldivar MD on 02/09/2025 at 01:15 PM EST Sign off status: Pending * Appointment Provider: Mikayla Saldivar M.D. Date: 04/04/2024 Generated for Printing/Faxing/eTransmitting on: 04/12/2024 01:15 PM EST
--- OUTSIDE RECORDS SUMMARY | 2025-02-09 13:15 | XMS_ITS | Patient Health Record ---
Author Organization [facility]. Address [address] [phone] Care Team Providers Care Industrial Sales Manager Name Role Phone Harinder Saldivar Primary Care Provider Allergies Allergen (clinical drug ingredient) Drug/Non Drug Allergy documented on EMR Reaction Allergy Type Onset Date Status Pain medications/Opioid s (uncoded) Vomitting Allergy Active varenicline Chantix Rash in [place] Drug Allergy Active Results Component Value Reference Range Notes REFLEXIVE URINE CULTURE Reviewed date:05/14/2024 08:01:35 AM Interpretation: Performing Lab:[facility], [facility], [address] [place], [place], [phone] Rick Harvey MD Notes/Report: Received Date: [id number] FASTING:NO FASTING: NO REFLEXIVE URINE CULTURE NO C ULTURE INDICATED DEXA Hip and Spine Reviewed date:06/08/2024 05:23:05 AM Interpretation:Osteopenia Multiple sites Performing Lab: Notes/Report: Osteopenia Multiple sites URINALYSIS, COMPLETE Reviewed date:06/08/2024 05:21:29 AM Interpretation:Normal Performing Lab:[facility], [facility], [address], [place], [phone] Rick Harvey MD Notes/Report: Received Date: [id number] FASTING:YES FASTING: YES COLOR YELLOW YELLOW APPEARANCE [...] Reviewed date:06/08/2024 05:21:29 AM Interpretation:Abnormal Performing Lab:[facility], [facility], [address] [place], [place], [address] Rick Harvey MD Notes/Report: Received Date: FASTING:YES FASTING: YES CHOLESTEROL, TOTAL 246 <200 mg/dL HDL CHOLESTEROL 65 > OR = 50 mg/dL TRIGLYCERIDES 126 <150 mg/dL LDL-CHOLESTEROL 156 Reference range: <100 Desirable range <100 mg/dL for primary prevention; <70 mg/dL for patients with CHD or diabetic patients with > or = 2 CHD risk factors. LDL-C is now calculated using the Lex-Coliler calculation, which is a validated novel method providing better accuracy than the Friedewald equation in the estimation of LDL-C. Lex SS et al. FARIDA. 2013;310(19): 3804-6980 (http://education.[employer]/faq/VZV786) CHOL/HDLC RATIO 3.8 <5.0 (calc) NON HDL CHOLESTEROL 181 <130 mg/dL (calc) For patients with diabetes plus 1 major ASCVD risk factor, treating to a non-HDL-C goal of <100 mg/dL (LDL-C of <70 mg/dL) is considered a therapeutic option. CMP Reviewed date:06/08/2024 05:21:29 AM Interpretation:Normal Performing Lab:[facility], [place], [place], [address] Rick Harvey MD Notes/Report: Received [...] 17 10-35 U/L ALT 13 6-29 U/L URINALYSIS, COMPLETE W/REFLE X TO CULTURE Reviewed date:05/14/2024 08:01:49 AM Interpretation: Performing Lab:[facility], [facility], [address], [place], [phone] Rick Harvey MD Notes/Report: Received Date: [id number] FASTING:NO FASTING: NO COLOR YELLOW YELLOW APPEARANCE [...] Reviewed date:06/08/2024 05:21:29 AM Interpretation:Normal Performing Lab:[facility], [facility], [address], [place], [phone] Rick Harvey MD Notes/Report: Received Date: FASTING:YES [...] MPV 9.1 7.5-12.5 fL ABSOLUTE NEUTROPHILS 4948 2053-3365 cells/uL ABSOLUTE LYMPHOCYTES 2783 430-4631 cells/uL ABSOLUTE MONOCYTES 600 200-950 cells/uL ABSOLUTE [...] every 6 hrs; Duration: 100 days Active Ezetimibe 10 MG 1 tablet Orally Once a day; Duration: 90 days Active Bactrim DS 800-160 MG 1 [...] e a day; Duration: 30 day(s) Active Social History Tobacco Use: [...] Status Risk Notes Problem Colon cancer screening (095047832) Colon cancer screening (Z12.11) Active confirmed Problem Screening for osteoporosis (469135752) Screening for osteoporosis (Z13.820) Active confirmed Problem Harmful pattern of use of tobacco (disorder) (8928941115) Personal history of tobacco use, presenting hazards to health (Z87.891) Active confirmed Problem Drug-induced myopathy (405896567) 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) Active confirmed Problem Simple chronic bronchitis (81366001) Simple chronic bronchitis (J41.0) Active confirmed Problem Lipid-lowering drug adverse reaction (disorder) (084633059) Adverse effect of antihyperlipidemic and antiarteriosclerotic drugs, initial encounter (T46.6X5A) Active confirmed Problem Essential hypertension (78336680) Essential hypertension (I10) Active confirmed Problem Mixed hyperlipidemia (628931929) Mixed hyperlipidemia (E78.2) Active confirmed Problem Atopic dermatitis (17836001) Atopic dermatitis and related condition (L20.9) Active confirmed Problem Atherosclerosis of coronary artery without angina pectoris (424899373241183) Atherosclerosis of [place] coronary artery of [place] heart without angina pectoris (I25.10) Active confirmed Problem Nicotine dependence (95523767) Cigarette nicotine dependence with other nicotine-induced disorder (F17.218) Active confirmed Problem COPD - Chronic obstructive pulmonary disease (44648955) Chronic obstructive pulmonary disease, unspecified COPD type (J44.9) Active confirmed Problem Aortic stenosis, non-rheumatic (460866018) Nonrheumatic aortic valve stenosis (I35.0) Active confirmed Problem Screening mammography (79019293) Screening mammogram for breast cancer (Z12.31) Active confirmed Problem Screening for malignant neoplasm of lung (procedure) (291792862) Screening for lung cancer (Z12.2) Active confirmed Problem Aneurysm of ascending aorta (disorder) (020737751) Aneurysm of ascending aorta without rupture (I71.21) Active confirmed Vital Signs Heart Rate 67 /min 06/08/2024 Blood pressure diastolic 74 mm Hg 06/08/2024 Height 59 in 06/08/2024 Blood pressure systolic 120 mm Hg 06/08/2024 Weight 128 lbs 06/08/2024 BMI 25.85 kg/m2 06/08/2024 Encounters Encounter Location Date Provider Diagnosis [address] [id number] 03/30/2024 Harinder Saldivar Essential hypertensi on I10 ; Atherosclerosis of [place] coronary artery of [place] heart without angina pectoris I25.10 ; Chronic [...] and antiarteriosclerotic drugs, initial encounter T46.6X5A [facility], [address] [id number] 06/08/2024 Harinder Saldivar Essential hypertensi on I10 ; Atherosclerosis of [place] coronary artery of [place] heart without angina pectoris I25.10 ; Chronic [...] and antiarteriosclerotic drugs, initial encounter T46.6X5A [facility], [address] [id number] 03/26/2024 Harinder Saldivar [place] [address] [id number] 04/19/2024 Harinder Saldivar [facility], [facility]. [address] [id number] 05/13/2024 Harinder Saldivar UTI symptoms R39.9 [facility], [facility]. [address] [id number] 05/14/2024 Harinder Saldivar [facility], [facility]. [address] [id number] 06/10/2024 Harinder Saldivar Assessments Encounter Date Diagnosis (ICD Code) Assessment Notes Treatment Notes Treatment Clinical Notes Section Notes 03/30/2024 Atherosclerosis of [place] coronary artery of [place] heart without angina pectoris (ICD-10 - I25.10) 05/13/2024 UTI symptoms (ICD-10 - R39.9) 03/30/2024 Essential hypertensi on (ICD-10 - I10) Non Pharmacological Treatment of Hypertension : DASH [ Dietary Approaches to Stop Hypertension]: Diet high in Fruits & Vegetable. Low Fat/No Fat Dairy Products. Whole Grains. Paultry & Fatty Fish eg [place], Sardines etc. Nuts- Walnuts, Almonds, Hazelnuts. Low [...] Whole Grains. Paultry & Fatty Fish eg [place], Sardines etc. Nuts- Walnuts, Almonds, Hazelnuts. Low [...] Obesity. 6. Regular Ecercise. 06/08/2024 Atherosclerosis of [place] coronary artery of [place] heart without angina pectoris (ICD-10 - I25.10) Life Style Management: Mediterranean Diet Diet- Avoid Red Meat-Like Beef, Pork, Liver. Rec. White meat-Like Poultry, Fish- [place], Sardines, Mackerel. Avoid Saturated Fats-Processed foods. Rec. Monounsaturated Fats- [place] Oil, Canola oil. Rec. Polyunsaturated Fats [place] 3 Fatty Acid. Avoid Sweets & Sweetened [...] 5. Avoid triggers and allergens. 6. Break aynz-Dafqxzj-mxpi cycle. 7. For severe Cases- Dilute bleach [...] encounter (ICD-10 - T46.6X5A) Plan Of Treatment Future Test Test Name Order Date Lipid Panel 01/17/2025 CMP 01/17/2025 Insurance Providers Payer Name Payer Address Payer Phone Subscriber Number Group Number Insured Name Patient Relationship to Insured Coverage Start Date Coverage End Date [employer]NA [facility] ADV [address] [address] [place] [address] [phone] [id number] Hansa Mills Self - patient is the insured Medical (General) History Medical History History ICD Code Chronic Obstructive Pulmonary disease Aortic stenosis Surgical History Surgery Date(Month/Year) Tonsillectomy Tubal ligation 1975
--- NOTE | 2025-02-09 13:16 | MHC.PC.OV ---
Vital Signs 02/09/25 13:18 Height 5 ft 1 in Weight 128 lb 8 oz BMI 24.3 BP 116/70 Blood Pressure Location Lt brachial Position Sitting Respiration 16 Pulse 78 Pulse Source Pulse Oximeter Temp 97.8 F Temp Source Oral Pulse Oximetry (%) 97 Oxygen Delivery Method Room Air Intake Visit Reasons: Annual PE transfer from [facility] Intake Note: Pt is here today for her PE transfer from [facility]: last cologuard 04/02/23 Director Medical Affairs Required: No Allergies Elkydjr-YPG-NoT Reductase Inhibitor Allergy (Mild, Verified 02/09/25 13:40) Muscle cramps barium sulfate Allergy (Unknown, Verified 02/09/25 13:40) delayed rash pain meds Adverse Reaction (Unknown, Uncoded 02/09/25 13:40) N/V Medication List - Last Reconciled 02/09/25 by Rupal Blue MD albuterol sulfate 90 mcg/actuation (Ventolin HFA) 1 puff PO QID PRN aspirin (Ecotrin Low Strength) 81 mg PO DAILY ezetimibe (Zetia) 10 mg PO DAILY iommdyqzjza-fgpqdgoov-aqcchsvl 200-62.5-25 mcg (Trelegy Ellipta) 1 inh inhalation DAILY ipratropium-albuterol 0.5 mg-3 mg(2.5 mg base)/3 mL 3 mL inhalation Q6H PRN losartan 50 mg PO DAILY Tobacco use date assessed: 02/09/25 Fall risk assessment: No Falls in past year Last assessed Fall Risk: 02/09/25 Dental Screening Dental Screen Date: 02/09/25 Did you have a dental visit in the last 12 months?: No Did you have a dental problem in the last 6 months where you did not have access to dental care?: No Was dental information given to patient?: Patient has dentist HPI Annual PE transfer from [facility] HPI Details 74-year-old lady here today to establish care with a new PCP and for physical exam. She has emphysema currently on Trelegy and uses Ventolin inhaler as needed, has a nebulizer which she rarely uses. No smoking. Patient gets yearly low-dose CAT scan for lung cancer screening last done September 2024 which showed benign findings. She does not want to get breast cancer screenings, states that she checks her breasts regularly, does not want to get mammogram screening. No longer gets cervical cancer screenings done Had a Cologuard test done last year which came back with negative findings repeat due again in 2026. She does not want to get any vaccines She has been diagnosed to have severe aortic stenosis currently asymptomatic. She has been seen by Cardiology who recommended treadmill stress test to evaluate for hemodynamic significance of aortic stenosis which may then require evaluation for valve replacement with consideration for TAVR. Patient declined further testing at present.. For now, continued low-dose aspirin therapy, aggressive blood pressure control, and continue lipid management goal LDL less than 100 mg/dL. Blood pressure stable and controlled on losartan 50 mg daily. Currently on ezetimibe 10 mg daily for control of cholesterol levels. Patient states that she has also a PCP down in [place] who recently did fasting labs with results unavailable to me at present time. She also states that she had a bone density scan done in [place], copy of results requested. [facility] Medical History (Updated 02/18/25 @ 01:56 by Rupal Blue MD) Eczema COPD (chronic obstructive pulmonary disease) with emphysema Vitamin D deficiency Dyslipidemia Aortic stenosis Surgical History (Updated 02/18/25 @ 01:48 by Rupal Blue MD) No pertinent past surgical history Family History Father Substance use disorder Brother Substance use disorder CAD (coronary artery disease) Paternal Uncle Substance use disorder Social History Housing: House Patient Tobacco Use Status: Former Tobacco user Tobacco use type: Cigarette Cigarette Packs Per Day: 1 Years Smoked: 50 e-Cigarette/Vaping Use: Never Used Second Hand Smoke Exposure: Yes service: No Current occupational status: retired Cognitive needs: No Hearing needs: No Vision needs: No Questionnaire PHQ-9 Over the last 2 weeks, how often have you been bothered by any of the following problems? 1. Little interest or pleasure in doing things: not at all 2. Feeling down, depressed, or hopeless: not at all 3. Trouble falling or staying asleep, or sleeping too much: not at all 4. Feeling tired or having little energy: not at all 5. Poor appetite or overeating: not at all 6. Feeling bad about yourself - or that you are a failure or have let yourself or your family down: not at all 7. Trouble concentrating on things, such as reading the newspaper or watching television: not at all 8. Moving or speaking so slowly that other people could have noticed. Or the opposite - being so fidgety or restless that you have been moving around a lot more than usual: not at all 9. Thoughts that you would be better off or of hurting yourself in some way: not at all Total score: 0 Depression Screening Interpretation: Negative Depression Screening Done: Yes 77888 - PHQ-9 Billing: Yes Source: Developed by Drs. Danish Park, Juanita Ybarra, Jason Max and colleagues, with an educational marv from [employer]. Thrive Questionnaire Date Thrive assessed: 02/09/25 I am a: Patient What is your living situation today?: I choose not to answer this question Within the past 12 months, did the food you bought not last and you didn't have the money to get more?: I choose not to answer this question Within the past 12 months, did you worry whether your food would run out before you got money to buy more?: I choose not to answer this question Do you have trouble paying for medicines?: I choose not to answer this question Do you have trouble getting transportation to medical appointments?: I choose not to answer this question Do you have trouble paying your heating and electricity bill?: I choose not to answer this question Do you have trouble taking care of your child, family member or friend?: I choose not to answer this question Do you have trouble with day-to-day activities such as bathing, preparing meals, shopping, managing finances, etc.?: I choose not to answer this question Are you currently unemployed and looking for a job?: I choose not to answer this question Are you interested in more education?: I choose not to answer this question Please select the resources that you would like help with: None Currently or been in a relationship where the following occur: I choose not to answer THRIVE Score: 0 AUDIT C Alcohol Use Questionnaire (AUDIT-C) 1. How often do you have a drink containing alcohol?: Monthly or less 2. How many drinks containing alcohol do you have on a typical day when you are drinking?: 1 or 2 3. How often do you have six or more drinks on one occasion?: Never Total Score: 1 MANDIE-7 AMB Questionnaire MANDIE-7 Date MANDIE - 7 assessed: 02/09/25 Feeling nervous, anxious, or on edge: 0 = Not at all Not being able to stop or control worryin = Not at all Worrying too much about different things: 0 = Not at all Trouble relaxin = Not at all Being so restless that it is hard to sit still: 0 = Not at all Becoming easily annoyed or irritable: 0 = Not at all Feeling afraid as if something awful might happen: 0 = Not at all Total MANDIE-7 score (0-4 normal; 5-9 mild; 10-14 moderate; 15-21 severe): 0 Source: Developed by Drs. Danish Park, Juanita Ybarra, Jason Max and colleagues, with an educational marv from [employer]. MANDIE-7 Assessment Billing MANDIE-7 Assessment Tool: MANDIE-7 Assessment 93345 Review of Systems Const Denies fatigue, Denies frequent falls and Denies weakness Eyes Reports no additional complaints ENT Reports no additional complaints Card Denies chest pain, Denies leg edema, Denies lightheadedness, Denies palpitations, Denies dyspnea and Denies dyspnea on exertion Resp Denies cough, Denies dyspnea and Denies dyspnea on exertion GI Denies hematochezia Reports no additional complaints Musc Denies abnormal gait, Denies muscle weakness and Denies numbness Skin/Breast Denies breast pain, Denies breast mass and Denies rash Neuro Denies abnormal gait, Denies frequent falls, Denies numbness and Denies weakness Psych Reports no additional complaints Endo Denies fatigue and Denies palpitations Manjit/Lymph Reports no additional complaints Aller/Immun Reports no additional complaints Physical exam (Primary Care) Vital Signs: Last Vital Signs Temp 97.8 F 02/09/25 13:18 Pulse 78 02/09/25 13:18 Resp 16 02/09/25 13:18 BP 116/70 02/09/25 13:18 Pulse Ox 97 02/09/25 13:18 Oxygen Delivery Method Room Air 02/09/25 13:18 BMI result Body Mass Index 24.3 Tobacco/Smoking Status: Tobacco use Status Tobacco use date assessed 02/09/25 02/09/25 13:23 Patient Tobacco Use Status Former Tobacco user 02/09/25 13:16 Tobacco use type Cigarette 02/09/25 13:16 e-Cigarette/Vaping Use Never Used 02/09/25 13:16 PHQ-9: PHQ-9 Score PHQ-9: Total score 0 02/09/25 13:57 Depression Screening Interpretation: Negative Thrive Assessment: Date of Thrive Assessment Date Thrive assessed 02/09/25 02/09/25 13:57 Currently or been in a relationship where the following occur: I choose not to answer Date of discussion: 02/09/25 Who was present: Patient Forms completed: Health Care Proxy Time spent: 16-45 minutes Actual minutes spent: 2 Const General: no acute distress and alert Orientation/consciousness: patient oriented x3 HENMT Head: Yes atraumatic Ears: external ears normal General nose exam: Normal external nose present Face and sinus: Yes face symmetric Mouth: Normal oral and palatal mucosa present and moist mucous membranes Eyes General: appearance normal, both eyes and all related structures Eyelids: Yes eyelids normal Conjunctivae: conjunctivae normal Pupils: Equal, round and reactive pupils present EOM: EOMs intact bilaterally Neck Neck: Yes full ROM, Yes no lymphadenopathy and Yes supple Thyroid: Thyroid normal Resp Effort & Inspection: normal respiratory effort and able to speak in complete sentences Auscultation: clear to auscultation bilaterally Cardio Rate: regular rate Rhythm: regular rhythm Heart sounds: S1 normal heart sound present, S2 normal heart sound present and Murmur heart sound present systolic GI Palpation (GI): Soft to palpation, nontender, no guarding and no masses Auscultation: normal bowel sounds General: Yes no CVA tenderness Back/Spine/Pelvis Back: no CVA tenderness and No back tenderness Skin General skin exam: no rashes or lesions noted Neuro General: patient oriented x3, gait normal, moves all extremities, Normal light touch and pain sensation and no focal motor deficits Cranial nerves: Yes Equal, round and reactive pupils present Cognition (Neuro): normal cognition Gait exam (Neuro): Normal gait present Extrem General: Yes normal to inspection, Yes full ROM, Yes no joint enlargement, Yes no pedal edema and Yes normal gait Psych Appearance: grossly normal and well kempt Mental Status: mental status grossly normal Speech and movement: Normal speech and movement present Affect: normal affect Coding Level of Care Code Est Pt Prev Care >65y(59975) Diagnoses Annual visit for general adult medical examination with abnormal findings Z00.01 Primary hypertension I10 Hypertension type: primary hypertension Aortic valve stenosis, etiology of cardiac valve disease unspecified I35.0 Cardiac valve disease etiology: etiology unspecified Dyslipidemia E78.5 Vitamin D deficiency E55.9 COPD (chronic obstructive pulmonary disease) J44.9 Advance directive discussed with patient Z71.89 Eczema L30.9 Additional Codes MANDIE-7 Assessment Billing - MANDIE-7 Assessment Tool: MANDIE-7 Assessment 09694 ([id number]) PHQ-9 - 73995 - PHQ-9 Billing: Yes ([id number]) Vital Signs *Quality* - Time spent: 16-45 minutes ([id number]) Assessment & Plan Assessment & Plan (1) Annual visit for general adult medical examination with abnormal findings: Code(s): Z00.01 - Encounter for general adult medical examination with abnormal findings Plan: Will check appropriate labs. Recommended dental visit every 6 months and regular eye exams, at least every 2 years. Take adequate calcium in diet and vitamin-D 3 at 2000 IU per cap once a day, in addition to weight-bearing exercises to help maintain good muscle tone and weight control. Instructed to do self-breast exam, but patient declined to get yearly mammogram Declined to get vaccines. Requested copy of bone density scan done in [place] last year, up-to-date with colon cancer screening with [facility] last year coming back with negative findings (2) Hypertension: Code(s): I10 - Essential (primary) hypertension Category: Medical Qualifiers: Hypertension type: primary hypertension Qualified Code(s): I10 - Essential (primary) hypertension Plan: Continued on losartan 50 mg daily (3) Aortic stenosis: Code(s): I35.0 - Nonrheumatic aortic (valve) stenosis Category: Medical Qualifiers: Cardiac valve disease etiology: etiology unspecified Qualified Code(s): I35.0 - Nonrheumatic aortic (valve) stenosis Plan: Currently on 81 mg aspirin, followed by cardiology, asymptomatic, declines doing any treatment at present time. Stressed importance of getting blood pressure, blood sugar and cholesterol levels well controlled (4) Dyslipidemia: Code(s): E78.5 - Hyperlipidemia, unspecified Category: Medical Plan: Fasting lipids ordered. Currently on ezetimibe 10 mg daily (5) Vitamin D deficiency: Code(s): E55.9 - Vitamin D deficiency, unspecified Category: Medical Plan: Will check vitamin-D level (6) COPD (chronic obstructive pulmonary disease): Code(s): J44.9 - Chronic obstructive pulmonary disease, unspecified Category: Medical Plan: Currently on Trelegy Ellipta inhalation daily and ipratropium albuterol nebulizers used via nebulizer as needed for episodes of bronchospasm and wheezing and has an albuterol inhaler to take as needed for episodes of bronchospasm and wheezing (7) Advance directive discussed with patient: Code(s): Z71.89 - Other specified counseling Plan: Initiated the conversation about Advanced Directives. Advanced Directives help patients prepare for current and future decisions about their medical treatment and place of care. Discussed with patient that it is a process where a patients current condition and prognosis are reviewed, their wishes for information regarding their illness are elicited, and likely medical dilemmas are presented and options discussed. Healthcare proxy form completed today. The form can be amended as needed, reviewed yearly and make changes as needed (8) Eczema: Comment: Sees a weighter in [place] Code(s): L30.9 - Dermatitis, unspecified Category: Medical Plan: Sees a weighter in [place] Orders: Orders Lipid Panel 02/09/25 I10 - Essential (primary) hypertension, I35.0 - Nonrheumatic aortic (valve) stenosis, E78.5 - Hyperlipidemia, unspecified, E55.9 - Vitamin D deficiency, unspecified, J44.9 - Chronic obstructive pulmonary disease, unspecified Vitamin D 25-OH Total 02/09/25 I10 - Essential (primary) hypertension, I35.0 - Nonrheumatic aortic (valve) stenosis, E78.5 - Hyperlipidemia, unspecified, E55.9 - Vitamin D deficiency, unspecified, J44.9 - Chronic obstructive pulmonary disease, unspecified Alanine Aminotransferase 02/09/25 I10 - Essential (primary) hypertension, I35.0 - Nonrheumatic aortic (valve) stenosis, E78.5 - Hyperlipidemia, unspecified, E55.9 - Vitamin D deficiency, unspecified, J44.9 - Chronic obstructive pulmonary disease, unspecified Aspartate Amino Transferase 02/09/25 I10 - Essential (primary) hypertension, I35.0 - Nonrheumatic aortic (valve) stenosis, E78.5 - Hyperlipidemia, unspecified, E55.9 - Vitamin D deficiency, unspecified, J44.9 - Chronic obstructive pulmonary disease, unspecified Basic Metabolic Panel Fasting 02/09/25 I10 - Essential (primary) hypertension, I35.0 - Nonrheumatic aortic (valve) stenosis, E78.5 - Hyperlipidemia, unspecified, E55.9 - Vitamin D deficiency, unspecified, J44.9 - Chronic obstructive pulmonary disease, unspecified
--- OUTSIDE RECORDS SUMMARY | 2025-02-09 13:16 | XMS_ITS | Patient Health Record ---
Author Organization [facility] Address [address] [place] [address] Care Team Providers Care Diamond Assorter Name Role Phone Danish Garrett Janet [phone] Reason For Referral No Information Plan Of Treatment No Information
[2025-02-09 13:18] VITALS: BP 116/70; PULSE 78; RESP 16; TEMP 36.6; O2SAT 97; BMI 24.3
== END 2025-02-09 13:54 | disposition home or self-care (01) ==
LOC: HO.HMCC 13:13
PROVIDERS: Visit Provider Internal Medicine
DX: Z00.01 Encounter for general adult medical examination with abnormal findings (principal); J44.9 Chronic obstructive pulmonary disease, unspecified; I10 Essential (primary) hypertension; I35.0 Nonrheumatic aortic (valve) stenosis; E78.5 Hyperlipidemia, unspecified; E55.9 Vitamin D deficiency, unspecified; Z71.89 Other specified counseling; L30.9 Dermatitis, unspecified

== ENCOUNTER → 2025-02-09 13:13 | Outpatient (BNVA) | payer MEDICARE, SELFPAY | PROVIDERS: Visit Provider Internal Medicine | DX: Z00.01 Encounter for general adult medical examination with abnormal findings (principal); Z71.89 Other specified counseling; I10 Essential (primary) hypertension; I35.0 Nonrheumatic aortic (valve) stenosis; E78.5 Hyperlipidemia, unspecified; E55.9 Vitamin D deficiency, unspecified; J44.9 Chronic obstructive pulmonary disease, unspecified; L30.9 Dermatitis, unspecified | CPT/HCPCS: 96127; 99397; 99497 ==